=== PATIENT | female | born 1935 | race Caucasian/White ===

== ENCOUNTER 2017-09-26 13:26 | Inpatient (IN) | payer MEDICARE, BC ==
[2017-09-26] MEDS ORDERED: ACETAMINOPHEN TAB 500 MG TAB PO STA (13:53)
--- NOTE | 2017-09-26 13:57 | ED ---
General Adult HPI - General Chief complaint: Altered Mental Status Stated complaint: Disorientated Time Seen by Provider: 09/26/17 13:46 Source: patient, family, RN notes reviewed Mode of arrival: wheelchair Limitations: no limitations - History of Present Illness Initial comments: Patient is a pleasant 82-year-old female presenting to the emergency Department with altered mental status. Family noticed symptoms today. Patient feels confused. Patient does feel weak and fatigued. No known history of fever. No history of similar symptoms previously. No isolated area of weakness. - Related Data Home Medications Medication Instructions Recorded Confirmed Levothyroxine Sodium [Synthroid] 25 mcg PO DAILY 10/12/13 09/26/17 Allergies Allergy/AdvReac Type Severity Reaction Status Date / Time Penicillins Allergy Rash/Hives Verified 09/26/17 14:04 Review of Systems ROS Statement: Those systems with pertinent positive or pertinent negative responses have been documented in the HPI. ROS Other: All systems not noted in ROS Statement are negative. Constitutional: Denies: fever Eyes: Denies: eye pain ENT: Denies: ear pain Respiratory: Denies: cough, dyspnea Cardiovascular: Denies: chest pain Endocrine: Reports: fatigue Gastrointestinal: Denies: abdominal pain Genitourinary: Denies: dysuria Musculoskeletal: Denies: back pain Skin: Denies: rash Neurological: Reports: confusion Past Medical History Past Medical History: Hyperlipidemia, Hypertension, Thyroid Disorder History of Any Multi-Drug Resistant Organisms: None Reported Past Surgical History: Appendectomy Additional Past Surgical History / Comment(s): colonoscopy Past Anesthesia/Blood Transfusion Reactions: No Reported Reaction Past Psychological History: No Psychological Hx Reported Smoking Status: Current every day smoker Past Alcohol Use History: Rare Past Drug Use History: None Reported General Exam Limitations: no limitations General appearance: alert, in no apparent distress Head exam: Present: atraumatic Eye exam: Present: normal appearance, PERRL, EOMI. Absent: nystagmus ENT exam: Present: normal oropharynx Neck exam: Present: normal inspection. Absent: tenderness, meningismus Respiratory exam: Present: normal lung sounds bilaterally Cardiovascular Exam: Present: regular rate, normal rhythm GI/Abdominal exam: Present: soft. Absent: tenderness Extremities exam: Present: normal inspection Neurological exam: Present: alert, altered, CN II-XII intact. Absent: motor sensory deficit Expanded Neurological exam: Present: protecting the airway Patient oriented to: Present: person, place (Patient no she is in the hospital however unclear what city). Absent: time (Patient normally is able to state the year however cannot today) Cranial nerves: EOM's Intact: Normal Motor strength exam: RUE: 5, LUE: 5, RLE: 5, LLE: 5 Eye Response: (4) open spontaneously Motor Response: (6) obeys commands Verbal Response: (4) confused conversation Psychiatric exam: Present: normal affect, normal mood Skin exam: Present: normal color Course Vital Signs 09/26/17 09/26/17 09/26/17 13:32 14:01 15:47 Temperature 100.1 F H 99.4 F Pulse Rate 100 71 77 Respiratory 18 18 18 Rate Blood Pressure 150/88 158/102 167/86 O2 Sat by Pulse 99 94 L 98 Oximetry EKG Findings - EKG Comments: EKG Findings:: Normal sinus rhythm 79. NV 180. QRS 86. QT 392. QTC 449. Normal axis. Normal QRS. No acute ST change. Medical Decision Making - Medical Decision Making Patient reevaluated and resting comfortably in bed. Patient and family are updated on results and plan. Case was discussed in detail with Dr. Warren, who will admit for Dr. Donohue. IV antibiotics will be started. Patient does not meet sepsis criteria at this time. - Lab Data Result diagrams: 09/26/17 16:00 Lab Results 09/26/17 09/26/17 09/26/17 Range/Units 14:40 16:00 16:00 WBC 8.2 (3.8-10.6) k/uL RBC 4.71 (3.80-5.40) m/uL Hgb 14.6 (11.4-16.0) gm/dL Hct 44.1 (34.0-46.0) % MCV 93.6 (80.0-100.0) fL MCH 31.0 (25.0-35.0) pg MCHC 33.1 (31.0-37.0) g/dL RDW 13.1 (11.5-15.5) % Plt Count 261 (150-450) k/uL Neutrophils % 77 % Lymphocytes % 14 % Monocytes % 6 % Eosinophils % 1 % Basophils % 0 % Neutrophils # 6.4 (1.3-7.7) k/uL Lymphocytes # 1.2 (1.0-4.8) k/uL Monocytes # 0.5 (0-1.0) k/uL Eosinophils # 0.1 (0-0.7) k/uL Basophils # 0.0 (0-0.2) k/uL PT 9.7 (9.0-12.0) sec INR 1.0 (<1.2) APTT 24.6 (22.0-30.0) sec Plasma Lactic Acid Qasim (0.7-2.0) mmol/L Urine Color Light Yellow Urine Appearance Clear (Clear) Urine pH 7.5 (5.0-8.0) Ur Specific [place] 1.011 (1.001-1.035) Urine Protein Negative (Negative) Urine Glucose (UA) Negative (Negative) Urine Ketones 1+ H (Negative) Urine Blood Negative (Negative) Urine Nitrite Negative (Negative) Urine Bilirubin Negative (Negative) Urine Urobilinogen <2.0 (<2.0) mg/dL Ur Leukocyte Esterase Negative (Negative) 09/26/17 Range/Units 16:00 WBC (3.8-10.6) k/uL RBC (3.80-5.40) m/uL Hgb (11.4-16.0) gm/dL Hct (34.0-46.0) % MCV (80.0-100.0) fL MCH (25.0-35.0) pg MCHC (31.0-37.0) g/dL RDW (11.5-15.5) % Plt Count (150-450) k/uL Neutrophils % % Lymphocytes % % Monocytes % % Eosinophils % % Basophils % % Neutrophils # (1.3-7.7) k/uL Lymphocytes # (1.0-4.8) k/uL Monocytes # (0-1.0) k/uL Eosinophils # (0-0.7) k/uL Basophils # (0-0.2) k/uL PT (9.0-12.0) sec INR (<1.2) APTT (22.0-30.0) sec Plasma Lactic Acid Qasim 1.4 (0.7-2.0) mmol/L Urine Color Urine Appearance (Clear) Urine pH (5.0-8.0) Ur Specific [place] (1.001-1.035) Urine Protein (Negative) Urine Glucose (UA) (Negative) Urine Ketones (Negative) Urine Blood (Negative) Urine Nitrite (Negative) Urine Bilirubin (Negative) Urine Urobilinogen (<2.0) mg/dL Ur Leukocyte Esterase (Negative) - Radiology Data Radiology results: report reviewed (Computed tomography scan of the brain shows atrophy. Sinusitis.), image reviewed (X-ray shows right lower lobe infiltrate.) Disposition Clinical Impression: Pneumonia Disposition: ADMITTED IP TO THIS HOSP Is patient prescribed a controlled substance at d/c from ED?: No Referrals: Damaris Hutchinson MD [Primary Care Provider] - 1-2 days Decision Time: 16:39
[2017-09-26] MEDS ORDERED: SODIUM CHLORIDE 0.9% 500 ML IV SCH (14:00)
[2017-09-26 15:20] LABS: Appearance,Urine Clear (Clear); Bilirubin,Urine Negative (Negative); Blood,Urine Negative (Negative); Color,Urine Light Yellow; Glucose,Urine (UA) Negative (Negative); Ketones,Urine 1+ (Negative); Leukocyte Esterase,Urine Negative (Negative); Nitrite,Urine Negative (Negative); PH, Urine 7.5 (5.0-8.0); Protein,Urine Negative (Negative); Specific Gravity,Urine 1.011 (1.001-1.035); Urobilinogen,Urine <2.0 mg/dL (<2.0)
--- NOTE | 2017-09-26 15:22 | CT ---
EXAMINATION TYPE: CT brain wo con DATE OF EXAM: 09/26/2017 COMPARISON: 05/20/2014 INDICATION: ams DLP: 1047.1 mGycm, Automated exposure control for dose reduction was used. CONTRAST: None CT of the brain is performed utilizing 3 mm thick sections through the posterior fossa and 3 mm thick sections through the remaining calvarium. Study is performed within 24 hours of arrival to the hosp ital. No abnormal hyperdensity is present to suggest an acute intracranial hemorrhage. No mass lesion is evident. No acute infarcts are evident. There is confluent periventricular white matter hypodensity, likely on the basis of chronic ischemic changes. Ventricles and sulci are prominent for the patient age. There is an air-fluid level within the right maxillary sinus. Correlate for acute maxillary sinusitis . Mucosal thickenings within the left sphenoid and ethmoid air cells. Correlate for sinusitis. Some m inimal mucosal thickening is within the right frontal sinus. Mastoid air cells are clear. IMPRESSIONS: 1. Atrophy with chronic periventricular white matter ischemic changes. 2. Clinical correlation recommended for pansinusitis.
--- NOTE | 2017-09-26 15:47 | XR ---
EXAMINATION TYPE: XR chest 2V DATE OF EXAM: 09/26/2017 COMPARISON: 05/20/2014 INDICATION: Fever TECHNIQUE: Frontal and lateral views of the chest are obtained. FINDINGS: The heart size is normal. The pulmonary vasculature is normal. Some mild increased infiltrate is present at the right lower lobe. IMPRESSION: 1. Mild right lower lobe infiltrate. Early pneumonia could be considered.
[2017-09-26 16:11] LABS: Basophils % (A) 0 %; Eosinophils # (A) 0.1 k/uL (0-0.7); Eosinophils % (A) 1 %; HCT 44.1 % (34.0-46.0); HGB 14.6 gm/dL (11.4-16.0); Lymphocytes # (A) 1.2 k/uL (1.0-4.8); Lymphocytes % (A) 14 %; MCHC 33.1 g/dL (31.0-37.0); MCV 93.6 fL (80.0-100.0); Mean Platelet Volume 7.3; Monocytes # (A) 0.5 k/uL (0-1.0); Monocytes % (A) 6 %; Neutrophils # (A) 6.4 k/uL (1.3-7.7); Neutrophils % (A) 77 %; Platelet Count 261 k/uL (150-450); RBC 4.71 m/uL (3.80-5.40); RDW 13.1 % (11.5-15.5); WBC 8.2 k/uL (3.8-10.6)
[2017-09-26 16:20] LABS: Partial Thromboplastin Time 24.6 sec (22.0-30.0); Prothrombin Time 9.7 sec (9.0-12.0)
[2017-09-26 16:35] LABS: ALT 23 U/L (9-52); AST 32 U/L (14-36); Albumin 4.3 g/dL (3.5-5.0); Alkaline Phosphatase 81 U/L (38-126); Anion Gap 14 mmol/L; Blood Urea Nitrogen 13 mg/dL (7-17); Calcium 9.3 mg/dL (8.4-10.2); Carbon Dioxide 22 mmol/L (22-30); Chloride 104 mmol/L (98-107); Glucose 94 mg/dL (74-99); Potassium 4.7 mmol/L (3.5-5.1); Sodium 140 mmol/L (137-145); Total Bilirubin 0.9 mg/dL (0.2-1.3); Total Protein 7.1 g/dL (6.3-8.2)
[2017-09-26] MEDS ORDERED: PNEUMONIA PROTOCOL UTILIZED 1 EACH MISC PO PRN (16:39)
[2017-09-26] MEDS ORDERED: IPRATROPIUM-ALBUTEROL 3 ML NEB INHALATION PRN (16:39)
[2017-09-26 16:44] LABS: Creatine Kinase MB 0.4 ng/mL (0.0-2.4)
[2017-09-26] MEDS ORDERED: AZITHROMYCIN 500 MG in SODIUM CHLORIDE 0.9% 250 ML IVPB STA (16:45)
[2017-09-26] MEDS ORDERED: cefTRIAXone IN SWFI 1,000 MG/10 ML SYRINGE IVP STA (16:45)
[2017-09-26 16:58] LABS: Troponin I 0.017 ng/mL (0.000-0.034)
[2017-09-26 18:10] VITALS: BMI 21.9
[2017-09-27] MEDS: SODIUM CHLORIDE 0.9% 1,000 ML IV SCH ×2 (01:00→16:43)
--- NOTE | 2017-09-27 01:35 | P.HPIM ---
History of Present Illness H&P Date: 09/26/17 Chief Complaint: Altered mental status Patient is a 82-year-old female with known history of hypertension, hyperlipidemia, hypothyroidism and currently everyday smoker was brought to the hospital due to altered mental status, weakness and not feeling well and also not talking coherently. Family noticed that patient has been increasingly confused and was also felt cold and clammy and subjective fevers. He usually patient is alert and oriented 3. Patient does feel very weak and fatigued. No fever was noted patient does have home visiting nurse. No recent illnesses noted. No complaints of chest pain or shortness of breath. No focal weakness noted. No history of similar symptoms previously. Chest x-ray showed mild right lower lobe infiltrate CT head showed no acute abnormality. Atropine with chronic periventricular white matter ischemic changes noted. Pansinusitis suspected. UA negative Review of Systems Patient is currently confused and could not give any history at this time. Complete review of systems could not be apparent from the patient. Past Medical History Past Medical History: Hyperlipidemia, Hypertension, Thyroid Disorder Additional Past Medical History / Comment(s): per [facility] thyroid nodules, falls, compression fx to l1 and l3 in 2013 History of Any Multi-Drug Resistant Organisms: None Reported Past Surgical History: Appendectomy Additional Past Surgical History / Comment(s): colonoscopy Past Anesthesia/Blood Transfusion Reactions: No Reported Reaction Past Psychological History: No Psychological Hx Reported Smoking Status: Current every day smoker Past Alcohol Use History: None Reported Additional Past Alcohol Use History / Comment(s): started smoking at age 17 smokes 1ppd Past Drug Use History: None Reported - Past Family History Father Family Medical History: Unable to Obtain Mother Family Medical History: Unable to Obtain Medications and Allergies Home Medications Medication Instructions Recorded Confirmed Type Levothyroxine Sodium [Synthroid] 25 mcg PO DAILY 10/12/13 09/26/17 History Allergies Allergy/AdvReac Type Severity Reaction Status Date / Time Penicillins Allergy Rash/Hives Verified 09/26/17 14:04 Physical Exam Vitals: Vital Signs Temp Pulse Pulse Resp BP BP Pulse Ox 09/26/17 21:38 155/85 09/26/17 20:47 97.8 F 82 16 165/90 96 09/26/17 17:43 97.3 F L 86 17 186/98 96 09/26/17 17:41 73 18 140/80 93 L 09/26/17 16:40 98 06/05/18 15:47 99.4 F 77 18 167/86 98 09/26/17 14:01 71 18 158/102 94 L 09/26/17 13:32 100.1 F H 100 18 150/88 99 Intake and Output 09/26/17 09/26/17 09/26/17 06:59 14:59 22:59 Other: # Voids 1 Weight 63.503 kg 63.503 kg PHYSICAL EXAMINATION: Patient is lying in the bed comfortably, no acute distress, awake alert and oriented 1.. HEENT: Normocephalic. Neck is supple. Pupils reactive. Nostrils clear. Oral cavity is moist. Ears reveal no drainage. Neck reveals no JVD, carotid bruits, or thyromegaly. CHEST EXAMINATION: Trachea is central. Symmetrical expansion. Bibasilar diminished air entry. No wheezing noted. CARDIAC: Normal S1, S2 with no gallops. No murmurs ABDOMEN: Soft. Bowel sounds normal. No organomegaly. No abdominal bruits. Extremities: reveal no edema. No clubbing or cyanosis Neurologically awake, alert, oriented x1 with well-coordinated movements. Confused. No focal deficits noted Skin: No rash or skin lesions. Psychiatric: Cooperative. Could not be assessed completely Musculoskeletal: No joint swelling or deformity. Normal range of motion. Results CBC & Chem 7: 09/26/17 16:00 09/26/17 16:00 Labs: Abnormal Lab Results - Last 24 Hours (Table) 09/26/17 09/26/17 Range/Units 14:40 16:00 Creatinine 0.44 L (0.52-1.04) mg/dL Urine Ketones 1+ H (Negative) Microbiology - Last 24 Hours (Table) 09/26/17 14:40 Urine Culture - Preliminary Urine,Catheterized Thrombosis Risk Factor Assmnt - DVT/VTE Prophylaxis DVT/VTE Prophylaxis: Pharmacologic Prophylaxis ordered - Choose All That Apply Each Risk Factor Represents 3 Points: Age 75 years or older Thrombosis Risk Factor Assessment Total Risk Factor Score: 3 Thrombosis Risk Factor Assessment Level: Moderate Risk Assessment and Plan Assessment: Altered mental status possible metabolic encephalopathy secondary to infection Acute right lower lobe pneumonia Possible pansinusitis Hypertension Hyperlipidemia Hypothyroidism DVT prophylaxis Plan: Patient will be continued on gentle hydration and antibiotics in the form of ceftriaxone and azithromycin. Continue to monitor closely. Discussed with family at bedside in detail. Continue with home medications and further recommendations based on the clinical course. Time with Patient: Greater than 30
--- NOTE | 2017-09-27 05:48 | HP ---
HISTORY AND PHYSICAL CHIEF COMPLAINT: Chief complaints are change in mental status and confusion and pneumonia. HISTORY OF PRESENT ILLNESS: This 82-year-old woman with a past medical history of hypertension, hyperlipidemia, hypothyroidism, history of thyroid nodules, being followed by Dr. Hutchinson in the outpatient setting was brought by the family to [facility] with complaints of features of pneumonia, dehydration, confusion. Mild right lower lobe infiltrate was noted. The patient was started on IV antibiotics and was admitted for further evaluation and treatment. Currently the patient is confused and unable to give a current history, most of the history is my discussion with staff and review of the chart. PAST MEDICAL HISTORY: Hypertension, hyperlipidemia, hypothyroidism, history of . MEDICATIONS: Medications prior to admission include home medications are: Levothyroxine 25 mcg p.o. daily. ALLERGIES: Allergies are PENICILLIN. Family history, social history and review of systems could not be taken because of the patient's change in mental status. PHYSICAL EXAMINATION: Patient is alert, confused. Pulse 82, blood pressure 165/90, respirations 16, temperature is 97.8, pulse ox 96% on 2 L. HEENT: Conjunctivae normal. Oral mucosa dry. Neck is no jugular venous distention. No carotid bruit. No lymph node enlargement. CARDIOVASCULAR: S1 and S2 muffled, RESPIRATORY: Breath sounds diminished at the bases. A few scattered rhonchi, no crackles. ABDOMEN: Soft, nontender. No mass palpable. LEGS: No edema, no swelling. NERVOUS SYSTEM: Higher functions as mentioned earlier. Moves all 4 limbs. No focal deficits. LYMPHATICS: No lymphadenopathy of the neck, axillae or groin. SKIN: No ulcer, rash or bleeding. LABS: CBC within normal limits. Creatinine 0.44. UA noted. ASSESSMENT: 1. Acute right lower lobe pneumonia, possibly gram-negative. 2. Hypertension. 3. Hyperlipidemia. 4. Change in mental status, metabolic encephalopathy, acute on chronic. 5. Hypothyroidism. 6. History of compression fracture. 7. History of nicotine dependence. RECOMMENDATIONS AND DISCUSSION: This 82-year-old woman who presented with multiple complex medical issues, we will monitor the patient closely. Continue the current medications. Continue symptomatic treatment. Broad-spectrum IV antibiotics initiated. Otherwise I would also recommend resume the home medications and DVT prophylaxis. Proton pump inhibitors. Habitrol patch. Repeat labs. The prognosis extremely guarded because of multiple complex medical issues and further recommendations to follow. Continue to monitor. MMODL / IJN: [id number] /
[2017-09-27] MEDS: LEVOTHYROXINE 25 MCG TAB PO SCH (05:50)
[2017-09-27 07:51] LABS: Basophils % (A) 1 %; Eosinophils # (A) 0.2 k/uL (0-0.7); Eosinophils % (A) 3 %; HCT 41.1 % (34.0-46.0); HGB 13.3 gm/dL (11.4-16.0); Lymphocytes # (A) 1.6 k/uL (1.0-4.8); Lymphocytes % (A) 24 %; MCHC 32.5 g/dL (31.0-37.0); MCV 95.5 fL (80.0-100.0); Mean Platelet Volume 6.7; Monocytes # (A) 0.7 k/uL (0-1.0); Monocytes % (A) 11 %; Neutrophils # (A) 3.9 k/uL (1.3-7.7); Neutrophils % (A) 60 %; Platelet Count 271 k/uL (150-450); RDW 13.1 % (11.5-15.5); WBC 6.6 k/uL (3.8-10.6)
[2017-09-27] MEDS: cefTRIAXone IN SWFI 1,000 MG/10 ML SYRINGE IVP SCH (08:40)
[2017-09-27] MEDS: PANTOPRAZOLE 40 MG TABLET PO SCH (08:40)
[2017-09-27] MEDS: HEPARIN SODIUM,PORCINE 5,000 UNIT/ML 1 ML VIAL SQ SCH ×2 (08:41→22:15)
[2017-09-27] MEDS: NICOTINE 21MG/24HR PATCH TRANSDERM SCH (08:41)
--- NOTE | 2017-09-27 08:48 | XR ---
EXAMINATION TYPE: XR chest 2V DATE OF EXAM: 09/27/2017 COMPARISON: 09/26/2017 HISTORY: Follow-up for pneumonia. TECHNIQUE: Frontal and lateral views of the chest are obtained. FINDINGS: Interval improvement in the previously seen right infrahilar opacity now appears as vascul ature and linear atelectasis. Prominent epicardial fat pad is also noted. Hyperinflation relates unde rlying COPD. Calcific pleural parenchymal scarring is noted at the lung apices. Atherosclerosis of th e right axillary and to a lesser degree of the left axillary vasculature is present. Chronic fracture deformity of the distal left clavicle is seen in combination with diffuse osseous demineralization. IMPRESSION: Interval improvement in the right basilar airspace disease now linear thought to represe nt vasculature and residual atelectasis.
[2017-09-27 08:49] LABS: Anion Gap 13 mmol/L; Blood Urea Nitrogen 16 mg/dL (7-17); Calcium 8.8 mg/dL (8.4-10.2); Carbon Dioxide 25 mmol/L (22-30); Chloride 104 mmol/L (98-107); Glucose 87 mg/dL (74-99); Potassium 3.7 mmol/L (3.5-5.1); Sodium 142 mmol/L (137-145)
--- NOTE | 2017-09-27 11:20 | P.CNPUL ---
History of Present Illness Consult date: 09/27/17 Requesting physician: Yousif Warren Reason for consult: abnormal CXR/CT Chief complaint: Altered mental status History of present illness: This is a pleasant 82-year-old female patient who follows with Dr. Hutchinson as her primary care physician. She has a history of hyperlipidemia, hypertension, hypothyroidism. She has current and ongoing tobacco dependence. She was brought to the emergency room yesterday after her family had noticed her being more confused, weak and fatigued. Computed tomography scan of the brain revealed atrophy with chronic periventricular white matter ischemic changes. There is some partida sinusitis. Chest x-ray revealed a mild right lower lobe infiltrate, possible pneumonia. She did present with a temperature of 100.1. No hypoxemia. There is no leukocytosis. Urine cultures pending. The patient is seen today in consultation on the regular medical floor. She is currently awake and alert in no acute distress. She is confused to time and place. She believes she is in [place]. Re-orientates easily. She cannot remember why she is here in the hospital. She currently denies any shortness of breath, cough or congestion. No chills or night sweats. She has been initiated on bronchodilators, antibiotics in the form of ceftriaxone and azithromycin. Follow-up chest x-ray today reveals interval improvement in the right basilar airspace disease. Review of Systems ROS unobtainable: due to mental status Past Medical History Past Medical History: Hyperlipidemia, Hypertension, Thyroid Disorder Additional Past Medical History / Comment(s): per [facility] thyroid nodules, falls, compression fx to l1 and l3 in 2013 History of Any Multi-Drug Resistant Organisms: None Reported Past Surgical History: Appendectomy Additional Past Surgical History / Comment(s): colonoscopy Past Anesthesia/Blood Transfusion Reactions: No Reported Reaction Past Psychological History: No Psychological Hx Reported Smoking Status: Current every day smoker Past Alcohol Use History: None Reported Additional Past Alcohol Use History / Comment(s): started smoking at age 17 smokes 1ppd Past Drug Use History: None Reported - Past Family History Father Family Medical History: Unable to Obtain Mother Family Medical History: Unable to Obtain Medications and Allergies Home Medications Medication Instructions Recorded Confirmed Type Levothyroxine Sodium [Synthroid] 25 mcg PO DAILY 10/12/13 09/26/17 History Allergies Allergy/AdvReac Type Severity Reaction Status Date / Time Penicillins Allergy Rash/Hives Verified 09/26/17 14:04 Physical Exam Vitals: Vital Signs Temp Pulse Pulse Resp BP BP Pulse Ox 09/27/17 05:13 97.6 F 65 16 153/78 97 09/26/17 21:38 155/85 09/26/17 20:47 97.8 F 82 16 165/90 96 09/26/17 17:43 97.3 F L 86 17 186/98 96 09/26/17 17:41 73 18 140/80 93 L 09/26/17 16:40 98 09/26/17 15:47 99.4 F 77 18 167/86 98 09/26/17 14:01 71 18 158/102 94 L 09/26/17 13:32 100.1 F H 100 18 150/88 99 Intake and Output 09/26/17 09/27/17 09/27/17 22:59 06:59 14:59 Other: Voiding Method Toilet Toilet # Voids 1 2 Weight 63.503 kg GENERAL EXAM: Alert, active, comfortable in no apparent distress. HEAD: Normocephalic. EYES: Normal reaction of pupils, equal size. NOSE: Clear with pink turbinates. THROAT: No erythema or exudates. NECK: No masses, no JVD. CHEST: No chest wall deformity. LUNGS: Equal air entry with no crackles, wheeze, rhonchi or dullness. CVS: S1 and S2 normal with no audible murmur, regular rhythm. ABDOMEN: No hepatosplenomegaly, normal bowel sounds, no guarding or rigidity. SPINE: No scoliosis or deformity SKIN: No rashes CENTRAL NERVOUS SYSTEM: No focal deficits, tone is normal in all 4 extremities. EXTREMITIES: There is no peripheral edema. No clubbing, no cyanosis. Peripheral pulses are intact. Results - Laboratory Findings CBC and BMP: 09/27/17 07:33 09/27/17 07:33 PT/INR, D-dimer PT 9.7 sec (9.0-12.0) 09/26/17 16:00 INR 1.0 (<1.2) 09/26/17 16:00 Abnormal lab findings: Abnormal Labs 09/26/17 09/26/17 14:40 16:00 Creatinine 0.44 L Urine Ketones 1+ H - Diagnostic Findings Chest x-ray: image reviewed Assessment and Plan Assessment: Impression: #1 Altered mental status of unclear etiology suspect minimal right perihilar infiltrate/pneumonia, however chest x-ray improved within 24 hours. Urine culture pending. #2 Hypertension. #3 Hyperlipidemia. #4 Hypothyroidism. #5 Chronic and ongoing tobacco dependence. Plan: The patient was seen and evaluated by Dr. Ortiz. Chest x-ray and labs were reviewed. Doubt any significant pneumonia but will continue bronchodilators and antibiotics. NicoDerm patch has been applied. Educated regarding the importance of complete smoking cessation. Heparin for DVT prophylaxis. Protonix for GI prophylaxis. Increase her activity as tolerated. We'll continue to follow. I, the cosigning physician, performed a history & physical examination of the patient. Lungs sounds are clear. Maintaining good O2 saturations in the 90s on room air. I discussed the assessment and plan of care with my nurse practitioner, Stefani Arcos. I attest to the above note as dictated by her. Time with Patient: Greater than 30
[2017-09-27] MEDS: AZITHROMYCIN 500 MG TAB PO SCH (16:43)
--- NOTE | 2017-09-27 23:50 | P.PN ---
Subjective Progress Note Date: 09/27/17 Principal diagnosis: Altered mental status and pneumonia Patient is a 82-year-old female with known history of hypertension, hyperlipidemia, hypothyroidism and currently everyday smoker was brought to the hospital due to altered mental status, weakness and not feeling well and also not talking coherently. Family noticed that patient has been increasingly confused and was also felt cold and clammy and subjective fevers. He usually patient is alert and oriented 3. Patient does feel very weak and fatigued. No fever was noted patient does have home visiting nurse. No recent illnesses noted. No complaints of chest pain or shortness of breath. No focal weakness noted. No history of similar symptoms previously. Chest x-ray showed mild right lower lobe infiltrate CT head showed no acute abnormality. Atropine with chronic periventricular white matter ischemic changes noted. Pansinusitis suspected. UA negative 09/27/2017 Patient's mental status did improve daily. Patient is able to communicate. Caregiver and her at bedside. Patient's mental status is at baseline. Otherwise patient is being continued on antibiotics for possible pneumonia. Chest x-ray showed improvement in 24 hours. Pulmonary is following. Urine culture showed no growth. Blood cultures showed no growth so far. Patient denied any complaints of chest pain or worsening shortness of breath. No nausea vomiting or abdominal pain. Patient was counseled extensively for smoking cessation. Otherwise no acute overnight issues. All other review of systems negative except the above Current medications reviewed Objective - Vital Signs Vital signs: Vital Signs Temp 98.0 F 09/27/17 14:57 Pulse 70 09/27/17 14:57 Resp 16 09/27/17 14:57 BP 157/70 09/27/17 14:57 Pulse Ox 96 09/27/17 14:57 Intake & Output 09/27/17 09/27/17 09/28/17 06:59 18:59 06:59 Intake Total 600 600 Balance 600 600 Intake: Oral 600 600 Other: Voiding Method Toilet Toilet # Voids 2 4 - Exam PHYSICAL EXAMINATION: Patient is lying in the bed comfortably, no acute distress, awake alert and oriented but slow to communicate.. HEENT: Normocephalic. Neck is supple. Pupils reactive. Nostrils clear. Oral cavity is moist. Ears reveal no drainage. Neck reveals no JVD, carotid bruits, or thyromegaly. CHEST EXAMINATION: Trachea is central. Symmetrical expansion. Bibasilar diminished air entry and no wheezing noted. CARDIAC: Normal S1, S2 with no gallops. No murmurs ABDOMEN: Soft. Bowel sounds normal. No organomegaly. No abdominal bruits. Extremities: reveal no edema. No clubbing or cyanosis Neurologically awake, alert, oriented x3 with well-coordinated movements. No focal deficits noted Skin: No rash or skin lesions. Psychiatric: Cooperative. Nonsuicidal Musculoskeletal: No joint swelling or deformity. Normal range of motion. - Labs CBC & Chem 7: 09/27/17 07:33 09/27/17 07:33 Labs: Microbiology - Last 24 Hours (Table) 09/26/17 14:40 Urine Culture - Final Urine,Catheterized 09/26/17 16:00 Blood Culture - Preliminary Blood No Growth after 24 hours 09/26/17 14:40 Blood Culture - Preliminary Blood No Growth after 24 hours Assessment and Plan Assessment: Altered mental status possible metabolic encephalopathy secondary to infection. Mental status improved. Intermittent Acute right lower lobe pneumonia Possible pansinusitis Hypertension Hyperlipidemia Hypothyroidism DVT prophylaxis Plan: Patient will be continued on gentle hydration and antibiotics in the form of ceftriaxone and azithromycin. Continue to monitor closely. Discussed with family at bedside in detail. Continue with home medications and further recommendations based on the clinical course. Time with Patient: Greater than 30
[2017-09-28] MEDS: LEVOTHYROXINE 25 MCG TAB PO SCH (06:21)
[2017-09-28] MEDS: NICOTINE 21MG/24HR PATCH TRANSDERM SCH (07:31)
[2017-09-28] MEDS: PANTOPRAZOLE 40 MG TABLET PO SCH (07:31)
[2017-09-28] MEDS: HEPARIN SODIUM,PORCINE 5,000 UNIT/ML 1 ML VIAL SQ SCH ×2 (07:31→20:44)
[2017-09-28] MEDS: cefTRIAXone IN SWFI 1,000 MG/10 ML SYRINGE IVP SCH (07:32)
[2017-09-28 07:57] LABS: Basophils % (A) 0 %; Eosinophils # (A) 0.2 k/uL (0-0.7); Eosinophils % (A) 4 %; HCT 40.9 % (34.0-46.0); HGB 13.3 gm/dL (11.4-16.0); Lymphocytes # (A) 1.3 k/uL (1.0-4.8); Lymphocytes % (A) 26 %; MCH 30.7 pg (25.0-35.0); MCHC 32.4 g/dL (31.0-37.0); MCV 94.6 fL (80.0-100.0); Mean Platelet Volume 6.8; Monocytes # (A) 0.4 k/uL (0-1.0); Monocytes % (A) 9 %; Neutrophils # (A) 2.9 k/uL (1.3-7.7); Neutrophils % (A) 59 %; Platelet Count 268 k/uL (150-450); RBC 4.32 m/uL (3.80-5.40); RDW 13.2 % (11.5-15.5)
[2017-09-28 08:14] LABS: Anion Gap 10 mmol/L; Blood Urea Nitrogen 14 mg/dL (7-17); Calcium 8.5 mg/dL (8.4-10.2); Carbon Dioxide 28 mmol/L (22-30); Chloride 104 mmol/L (98-107); Glucose 90 mg/dL (74-99); Potassium 3.7 mmol/L (3.5-5.1); Sodium 142 mmol/L (137-145)
[2017-09-28] MEDS: SODIUM CHLORIDE 0.9% 1,000 ML IV SCH (11:54)
--- NOTE | 2017-09-28 14:41 | P.PN ---
Subjective Progress Note Date: 09/28/17 Principal diagnosis: Altered mental status, suspect minimal right perihilar infiltrate/pneumonia This is a pleasant 82-year-old female patient who follows with Dr. Hutchinson as her primary care physician. She has a history of hyperlipidemia, hypertension, hypothyroidism. She has current and ongoing tobacco dependence. She was brought to the emergency room yesterday after her family had noticed her being more confused, weak and fatigued. Computed tomography scan of the brain revealed atrophy with chronic periventricular white matter ischemic changes. There is some partida sinusitis. Chest x-ray revealed a mild right lower lobe infiltrate, possible pneumonia. She did present with a temperature of 100.1. No hypoxemia. There is no leukocytosis. Urine cultures pending. The patient is seen today in consultation on the regular medical floor. She is currently awake and alert in no acute distress. She is confused to time and place. She believes she is in [place]. Re-orientates easily. She cannot remember why she is here in the hospital. She currently denies any shortness of breath, cough or congestion. No chills or night sweats. She has been initiated on bronchodilators, antibiotics in the form of ceftriaxone and azithromycin. Follow-up chest x-ray today reveals interval improvement in the right basilar airspace disease. On 09/28/2017 patient seen again in follow-up on medical surgical floor. She is resting in bed, denies any acute distress, denies any fever or chills, or cough is weak, but none congested, lung sounds are positive for a few bibasilar rales. Pulse ox on 2 L per nasal cannula is 94%, she has been afebrile, vital signs are stable. Patient has not been able to produce any sputum for culture. Blood and urine culture show no growth. Patient remains on empiric antibiotics in the form of azithromycin and Rocephin were a suspected right lower lobe pneumonia. Patient is alert, oriented to person, and the month. Disoriented to year, or the place. Lab work has been reviewed, and there is no evidence of leukocytosis, WBCs 5.0, electrolytes are normal, renal profile is essentially normal. No complaints of chest pain or shortness of breath, no focal weakness. No acute events overnight. From pulmonary standpoint patient is stable for discharge home today. Objective - Vital Signs Vital signs: Vital Signs Temp 97.6 F 09/28/17 05:00 Pulse 70 09/28/17 05:00 Resp 16 09/28/17 05:00 BP 176/85 09/28/17 05:00 Pulse Ox 94 L 09/28/17 06:58 Intake & Output 09/27/17 09/28/17 09/28/17 18:59 06:59 18:59 Intake Total 600 1810 Balance 600 1810 Intake: Intake, IV Titration 350 Amount Sodium Chloride 0.9% 1, 350 000 ml @ 50 mls/hr IV . Q20H [facility] Rx#:[id number] Oral 600 1460 Other: Voiding Method Toilet Toilet Toilet Diaper Incontinent # Voids 4 1 - Exam GENERAL EXAM: Alert, active, comfortable in no apparent distress. HEAD: Normocephalic. EYES: Normal reaction of pupils, equal size. NOSE: Clear with pink turbinates. THROAT: No erythema or exudates. NECK: No masses, no JVD. CHEST: No chest wall deformity. LUNGS: Equal air entry with a few bibasilar crackles, but no wheeze, rhonchi or dullness. CVS: S1 and S2 normal with no audible murmur, regular rhythm. ABDOMEN: No hepatosplenomegaly, normal bowel sounds, no guarding or rigidity. SPINE: No scoliosis or deformity SKIN: No rashes CENTRAL NERVOUS SYSTEM: No focal deficits, tone is normal in all 4 extremities. EXTREMITIES: There is no peripheral edema. No clubbing, no cyanosis. Peripheral pulses are intact. - Labs CBC & Chem 7: 09/28/17 07:24 09/28/17 07:24 Labs: Abnormal Lab Results - Last 24 Hours (Table) 09/28/17 Range/Units 07:24 Creatinine 0.49 L (0.52-1.04) mg/dL Microbiology - Last 24 Hours (Table) 09/26/17 14:40 Urine Culture - Final Urine,Catheterized 09/26/17 16:00 Blood Culture - Preliminary Blood No Growth after 24 hours 09/26/17 14:40 Blood Culture - Preliminary Blood No Growth after 24 hours Assessment and Plan Plan: Assessment: #1 Altered mental status of unclear etiology suspect minimal right perihilar infiltrate/pneumonia, however chest x-ray improved within 24 hours. General blood cultures negative #2 Hypertension. #3 Hyperlipidemia. #4 Hypothyroidism. #5 Chronic and ongoing tobacco dependence. Plan: Clinically patient remains stable, denies any worsening dyspnea, denies any fever or chills, denies any chest discomfort. She is on room air, there is no leukocytosis. Menta status is improved, but patient remains disoriented to place and year. She is tolerating oral diet, no nausea vomiting, no abdominal pain. She has been afebrile, vital signs are stable. Doubt significant pneumonia, and clinically patient is stable, without specific complaints. From pulmonary standpoint she stable for discharge home today on an oral course of antibiotics. I performed a history & physical examination of the patient and discussed their management with my nurse practitioner, Echo Butterfield. I reviewed the nurse practitioner's note and agree with the documented findings and plan of care. Lung sounds are diminished with a few bibasilar crackles. The findings and the impression was discussed with the patient. I attest to the documentation by the nurse practitioner. Time with Patient: Less than 30
[2017-09-28] MEDS: AZITHROMYCIN 500 MG TAB PO SCH (17:07)
[2017-09-28 23:14] VITALS: RESP 16; TEMP 97.4
[2017-09-29] MEDS: LEVOTHYROXINE 25 MCG TAB PO SCH (06:10)
[2017-09-29 07:00] VITALS: BP 171/93; PULSE 68
[2017-09-29 07:06] LABS: Basophils % (A) 1 %; Eosinophils # (A) 0.2 k/uL (0-0.7); Eosinophils % (A) 3 %; HCT 39.4 % (34.0-46.0); HGB 13.1 gm/dL (11.4-16.0); Lymphocytes # (A) 1.6 k/uL (1.0-4.8); Lymphocytes % (A) 29 %; MCH 31.2 pg (25.0-35.0); MCHC 33.3 g/dL (31.0-37.0); MCV 93.8 fL (80.0-100.0); Mean Platelet Volume 6.9; Monocytes # (A) 0.5 k/uL (0-1.0); Monocytes % (A) 9 %; Neutrophils % (A) 56 %; Platelet Count 275 k/uL (150-450); RDW 13.1 % (11.5-15.5); WBC 5.3 k/uL (3.8-10.6)
[2017-09-29] MEDS: SODIUM CHLORIDE 0.9% 1,000 ML IV SCH (07:15)
[2017-09-29] MEDS: cefTRIAXone IN SWFI 1,000 MG/10 ML SYRINGE IVP SCH (07:15)
[2017-09-29] MEDS: HEPARIN SODIUM,PORCINE 5,000 UNIT/ML 1 ML VIAL SQ SCH (07:16)
[2017-09-29] MEDS: PANTOPRAZOLE 40 MG TABLET PO SCH (07:16)
[2017-09-29] MEDS: NICOTINE 21MG/24HR PATCH TRANSDERM SCH (07:16)
[2017-09-29 07:21] LABS: Anion Gap 10 mmol/L; Blood Urea Nitrogen 12 mg/dL (7-17); Calcium 8.6 mg/dL (8.4-10.2); Carbon Dioxide 27 mmol/L (22-30); Chloride 104 mmol/L (98-107); Glucose 93 mg/dL (74-99); Potassium 3.4 mmol/L (3.5-5.1); Sodium 141 mmol/L (137-145)
--- NOTE | 2017-09-29 11:26 | P.PN ---
Subjective Progress Note Date: 09/29/17 Principal diagnosis: Altered mental status, suspect minimal right perihilar infiltrate/pneumonia This is a pleasant 82-year-old female patient who follows with Dr. Hutchinson as her primary care physician. She has a history of hyperlipidemia, hypertension, hypothyroidism. She has current and ongoing tobacco dependence. She was brought to the emergency room yesterday after her family had noticed her being more confused, weak and fatigued. Computed tomography scan of the brain revealed atrophy with chronic periventricular white matter ischemic changes. There is some partida sinusitis. Chest x-ray revealed a mild right lower lobe infiltrate, possible pneumonia. She did present with a temperature of 100.1. No hypoxemia. There is no leukocytosis. Urine cultures pending. The patient is seen today in consultation on the regular medical floor. She is currently awake and alert in no acute distress. She is confused to time and place. She believes she is in [place]. Re-orientates easily. She cannot remember why she is here in the hospital. She currently denies any shortness of breath, cough or congestion. No chills or night sweats. She has been initiated on bronchodilators, antibiotics in the form of ceftriaxone and azithromycin. Follow-up chest x-ray today reveals interval improvement in the right basilar airspace disease. On 09/28/2017 patient seen again in follow-up on medical surgical floor. She is resting in bed, denies any acute distress, denies any fever or chills, or cough is weak, but none congested, lung sounds are positive for a few bibasilar rales. Pulse ox on 2 L per nasal cannula is 94%, she has been afebrile, vital signs are stable. Patient has not been able to produce any sputum for culture. Blood and urine culture show no growth. Patient remains on empiric antibiotics in the form of azithromycin and Rocephin were a suspected right lower lobe pneumonia. Patient is alert, oriented to person, and the month. Disoriented to year, or the place. Lab work has been reviewed, and there is no evidence of leukocytosis, WBCs 5.0, electrolytes are normal, renal profile is essentially normal. No complaints of chest pain or shortness of breath, no focal weakness. No acute events overnight. From pulmonary standpoint patient is stable for discharge home today. On 09/29/2017 patient seen in follow-up. Denies any dyspnea, denies any chest pain, no acute events overnight, vital signs are stable, no fever or chills, room air pulse ox is 95%, blood, and urine cultures remain negative. Lung sounds are clear to auscultation, patient's mentation is improving, today's labs were reviewed, and are within normal limits, with the exception of potassium of 3.4. Patient has been treated with a combination of azithromycin and Rocephin for a suspected right lower lobe pneumonia. Clinically patient remains stable, and from pulmonary standpoint is ready for discharge home today Objective - Vital Signs Vital signs: Vital Signs Temp 97.4 F L 09/29/17 06:59 Pulse 68 09/29/17 06:59 Resp 16 09/29/17 06:59 BP 171/93 09/29/17 06:59 Pulse Ox 95 09/29/17 06:59 Intake & Output 09/28/17 09/29/17 09/29/17 18:59 06:59 18:59 Intake Total 1390 Balance 1390 Weight 63.503 kg Intake: Intake, IV Titration 500 Amount Sodium Chloride 0.9% 1, 500 000 ml @ 50 mls/hr IV . Q20H [facility] Rx#:[id number] Oral 890 Other: Voiding Method Toilet Toilet Diaper Incontinent Incontinent # Voids 1 2 2 # Bowel Movements 1 1 - Exam GENERAL EXAM: Alert, active, comfortable in no apparent distress. HEAD: Normocephalic. EYES: Normal reaction of pupils, equal size. NOSE: Clear with pink turbinates. THROAT: No erythema or exudates. NECK: No masses, no JVD. CHEST: No chest wall deformity. LUNGS: Equal air entry bilaterally, no crackles, no rhonchi no wheezes CVS: S1 and S2 normal with no audible murmur, regular rhythm. ABDOMEN: No hepatosplenomegaly, normal bowel sounds, no guarding or rigidity. SPINE: No scoliosis or deformity SKIN: No rashes CENTRAL NERVOUS SYSTEM: No focal deficits, tone is normal in all 4 extremities. EXTREMITIES: There is no peripheral edema. No clubbing, no cyanosis. Peripheral pulses are intact. - Labs CBC & Chem 7: 09/29/17 06:55 09/29/17 06:55 Labs: Abnormal Lab Results - Last 24 Hours (Table) 09/29/17 Range/Units 06:55 Potassium 3.4 L (3.5-5.1) mmol/L Creatinine 0.50 L (0.52-1.04) mg/dL Microbiology - Last 24 Hours (Table) 09/26/17 16:00 Blood Culture - Preliminary Blood No Growth after 48 hours 09/26/17 14:40 Blood Culture - Preliminary Blood No Growth after 48 hours Assessment and Plan Plan: Assessment: #1 Altered mental status of unclear etiology suspect minimal right perihilar infiltrate/pneumonia, however chest x-ray improved within 24 hours. General blood cultures negative #2 Hypertension. #3 Hyperlipidemia. #4 Hypothyroidism. #5 Chronic and ongoing tobacco dependence. Plan: Patient remains stable from pulmonary standpoint, mentation is improving, patient is awake, alert, oriented 3. No acute events overnight, no focal weakness, no dyspnea, no chest pain, no chest congestion. Stable for discharge home today, follow up with Dr. Gomes in the office in 7-10 days. I performed a history & physical examination of the patient and discussed their management with my nurse practitioner, Echo Butterfield. I reviewed the nurse practitioner's note and agree with the documented findings and plan of care. Lung sounds are diminished with a few bibasilar crackles. The findings and the impression was discussed with the patient. I attest to the documentation by the nurse practitioner. Time with Patient: Less than 30
[2017-09-29] MEDS: POTASSIUM CHLORIDE ER 20 MEQ TAB.ER PO SCH ×2 (12:11→13:24)
== END 2017-09-29 13:50 | disposition home health service (06) | DRG 193 ==
LOC: EC 13:26 → 5MS5E 16:40
PROVIDERS: ADMIT Internal Medicine; ATTEND Internal Medicine
DX: J18.9 Pneumonia, unspecified organism (principal); G93.41 Metabolic encephalopathy; E78.5 Hyperlipidemia, unspecified; J32.4 Chronic pansinusitis; I10 Essential (primary) hypertension; E03.9 Hypothyroidism, unspecified; E04.2 Nontoxic multinodular goiter; F17.210 Nicotine dependence, cigarettes, uncomplicated; Z71.6 Tobacco abuse counseling; Z79.890 Hormone replacement therapy; Z87.311 Personal history of (healed) other pathological fracture; Z90.49 Acquired absence of other specified parts of digestive tract
CPT/HCPCS: 36415; 70450; 71046; 80048; 80053; 81003; 82550; 82553; 83605; 84443; 84484; 85025; 85610; 85730; 87040; 87086; 93005; 94760; 96361; 96365; 96375; 99285

== ENCOUNTER 2017-11-17 20:41 | Emergency (ER) | payer MEDICARE, BC ==
[2017-11-17 21:21] VITALS: RESP 20
[2017-11-17] MEDS ORDERED: DIPH,PERTUS(ACELL)TETVAC-LF 0.5 ML VIAL IM ONE (22:28)
--- NOTE | 2017-11-17 22:56 | ED ---
Fall HPI - General Chief Complaint: Fall Stated Complaint: Fall Time Seen by Provider: 11/17/17 21:26 Source: patient Mode of arrival: ambulatory - History of Present Illness Initial Comments: 82-year-old female patient presents to emergency department today for evaluation after expressing a fall at home. Patient states that she was in the bathroom when she tripped and fell. Patient states that she sustained wounds to her right anterior ackerman and her left elbow. Patient is complaining of some pain with movement of the elbow. She denies hitting her head or losing consciousness during the fall. She denies any headache, neck pain, or back pain. Patient states she generally walks with a walker but does not fit into the bathroom so she believes this may have contributed to her fall. She is unsure when her last tetanus vaccine was given. Patient denies any chest pain, shortness of breath, dizziness, weakness, abdominal pain, nausea, vomiting, or difficulties with bowel movements or urination. - Related Data Home Medications Medication Instructions Recorded Confirmed Levothyroxine Sodium [Synthroid] 25 mcg PO DAILY 10/12/13 11/17/17 Allergies Allergy/AdvReac Type Severity Reaction Status Date / Time Penicillins Allergy Rash/Hives Verified 11/17/17 21:31 Review of Systems ROS Statement: Those systems with pertinent positive or pertinent negative responses have been documented in the HPI. ROS Other: All systems not noted in ROS Statement are negative. Past Medical History Past Medical History: Hyperlipidemia, Hypertension, Thyroid Disorder Additional Past Medical History / Comment(s): per [facility] thyroid nodules, falls, compression fx to l1 and l3 in 2013 History of Any Multi-Drug Resistant Organisms: None Reported Past Surgical History: Appendectomy Additional Past Surgical History / Comment(s): colonoscopy Past Anesthesia/Blood Transfusion Reactions: No Reported Reaction Past Psychological History: No Psychological Hx Reported Smoking Status: Current every day smoker Past Alcohol Use History: None Reported Past Drug Use History: None Reported - Past Family History Father Family Medical History: Unable to Obtain Mother Family Medical History: Unable to Obtain General Exam Limitations: no limitations General appearance: alert, in no apparent distress, other (This is a well- developed, well-nourished elderly female patient in no acute distress. Vital signs upon presentation are temperature 98.1F, pulse 61, respirations 20, blood pressure 155/90, pulse ox 98% on room air.) Head exam: Present: atraumatic, normocephalic, normal inspection Eye exam: Present: normal appearance, PERRL, EOMI. Absent: scleral icterus, conjunctival injection, periorbital swelling ENT exam: Present: normal exam, normal oropharynx, mucous membranes moist Neck exam: Present: normal inspection, full ROM, other (Nontender, no step-off, no deformity to firm midline palpation of the posterior cervical spine. Full range of motion without pain or limitation.). Absent: tenderness, meningismus, lymphadenopathy Respiratory exam: Present: normal lung sounds bilaterally. Absent: respiratory distress, wheezes, rales, rhonchi, stridor Cardiovascular Exam: Present: regular rate, normal rhythm, normal heart sounds. Absent: systolic murmur, diastolic murmur, rubs, gallop, clicks GI/Abdominal exam: Present: soft, normal bowel sounds. Absent: distended, tenderness, guarding, rebound, rigid Extremities exam: Present: full ROM, normal capillary refill, other (Patient has a 2 cm x 2 cm skin tear to the left posterior elbow. The patient has full range of motion however does report tenderness over the bony aspects of the elbow, reports increased pain with movement. Skin to the left upper extremities pink, warm, and dry. Cap refills less than 3 seconds. Radial pulses 2+ and equal bilaterally. Right leg exhibits a large skin tear to the right anterior ackerman. There is no bony tenderness. Patient is able to bear weight on the leg without significant pain. She has full range of motion to the knee without pain or limitation. Skin to the remainder of the right leg is pink, warm, and dry. Cap refills less than 3 seconds. Pedal and posttibial pulses are 2+ and equal bilaterally.). Absent: normal inspection, tenderness, pedal edema, joint swelling, calf tenderness Back exam: Present: normal inspection, other (Nontender, no step-off, no deformity to firm midline palpation of the thoracic and lumbar vertebrae. Full range of motion without pain or limitation.). Absent: vertebral tenderness Neurological exam: Present: alert, oriented X3, CN II-XII intact Psychiatric exam: Present: normal affect, normal mood Skin exam: Present: warm, dry, intact, normal color. Absent: rash Course Vital Signs 11/17/17 11/18/17 21:14 00:19 Temperature 98.1 F 98.0 F Pulse Rate 61 65 Respiratory 20 20 Rate Blood Pressure 155/90 148/91 O2 Sat by Pulse 98 97 Oximetry Medical Decision Making - Medical Decision Making 82-year-old female patient percents to the emergency department today for evaluation after experiencing a fall at home. Physical examination did reveal large skin tear to the right anterior ackerman and a small skin tear to the left elbow. Patient did have some left elbow pain with movement. X-ray of the elbow was negative. Tetanus was updated. Patient denied hitting her head or losing consciousness. She is neurologically intact. She'll be discharged home to follow-up with her primary care physician for recheck. Return parameters discussed in detail. She verbalizes understanding and agrees with this plan. - Radiology Data Radiology results: report reviewed, image reviewed 3 views of the left elbow are obtained. I see no fracture or dislocation. Joint spaces are normal. There is no sign of elbow joint effusion. Impression by Dr. Roa shows negative left elbow exam Disposition Clinical Impression: Skin tear of right lower leg without complication, Skin tear of left elbow without complication Disposition: HOME SELF-CARE Condition: Good Instructions: Fall Prevention for Older Adults (ED), Skin Tear (ED) Additional Instructions: Keep wounds clean and dry. Follow-up with the primary care physician for recheck in 1-2 days. Return here immediately for any new, worsening, or concerning symptoms. Is patient prescribed a controlled substance at d/c from ED?: No Referrals: Bridget Cruz MD [Primary Care Provider] - 1-2 days Time of Disposition: 23:58
--- NOTE | 2017-11-17 23:55 | XR ---
EXAMINATION TYPE: XR elbow complete LT DATE OF EXAM: 11/17/2017 COMPARISON: NONE HISTORY: Elbow pain TECHNIQUE: 3 views FINDINGS: I see no fracture nor dislocation. Joint spaces are normal. There is no sign of elbow joint effusion. IMPRESSION: Negative left elbow exam.
[2017-11-18 00:20] VITALS: BP 148/91; PULSE 65; TEMP 98
== END 2017-11-18 00:20 | disposition home or self-care (01) ==
LOC: EC 20:41
DX: S81.811A Laceration without foreign body, right lower leg, initial encounter (principal); S51.012A Laceration without foreign body of left elbow, initial encounter; E07.9 Disorder of thyroid, unspecified; F17.200 Nicotine dependence, unspecified, uncomplicated; Z23 Encounter for immunization; Z79.899 Other long term (current) drug therapy; Z88.0 Allergy status to penicillin; W01.0XXA Fall on same level from slipping, tripping and stumbling without subsequent striking against object, initial encounter; Y92.002 Bathroom of unspecified non-institutional (private) residence as the place of occurrence of the external cause
CPT/HCPCS: 90471; 90715; 99283

== ENCOUNTER 2018-01-11 19:05 | Inpatient (IN) | payer MEDICARE, BC ==
[2018-01-11] MEDS ORDERED: SODIUM CHLORIDE 0.9% 500 ML IV STA (19:23)
[2018-01-11] MEDS ORDERED: SODIUM CHLORIDE 0.9% 1,000 ML IV STA (19:23)
[2018-01-11 19:53] LABS: Basophils % (A) 1 %; Eosinophils # (A) 0.3 k/uL (0-0.7); Eosinophils % (A) 4 %; HCT 42.4 % (34.0-46.0); HGB 13.6 gm/dL (11.4-16.0); Lymphocytes # (A) 1.4 k/uL (1.0-4.8); Lymphocytes % (A) 25 %; MCH 30.5 pg (25.0-35.0); MCHC 32.2 g/dL (31.0-37.0); MCV 94.8 fL (80.0-100.0); Monocytes # (A) 0.5 k/uL (0-1.0); Monocytes % (A) 8 %; Neutrophils # (A) 3.5 k/uL (1.3-7.7); Neutrophils % (A) 61 %; Platelet Count 300 k/uL (150-450); RBC 4.47 m/uL (3.80-5.40); RDW 13.2 % (11.5-15.5); WBC 5.7 k/uL (3.8-10.6)
[2018-01-11 20:02] LABS: Partial Thromboplastin Time 23.7 sec (22.0-30.0); Prothrombin Time 9.6 sec (9.0-12.0)
[2018-01-11 20:13] LABS: ALT 17 U/L (9-52); AST 18 U/L (14-36); Albumin 3.7 g/dL (3.5-5.0); Alkaline Phosphatase 93 U/L (38-126); Anion Gap 7 mmol/L; Blood Urea Nitrogen 26 mg/dL (7-17); Carbon Dioxide 29 mmol/L (22-30); Chloride 105 mmol/L (98-107); Creatine Kinase 31 U/L (30-135); Glucose 139 mg/dL (74-99); Potassium 3.9 mmol/L (3.5-5.1); Sodium 141 mmol/L (137-145); Total Bilirubin 0.4 mg/dL (0.2-1.3); Total Protein 6.4 g/dL (6.3-8.2)
[2018-01-11 20:25] LABS: Creatine Kinase MB 0.4 ng/mL (0.0-2.4); Troponin I <0.012 ng/mL (0.000-0.034)
--- NOTE | 2018-01-11 20:55 | ED ---
General Adult HPI - General Chief complaint: Altered Mental Status Stated complaint: Weakness Time Seen by Provider: 01/11/18 19:22 Source: family, RN notes reviewed, old records reviewed Mode of arrival: wheelchair Limitations: altered mental status - History of Present Illness Initial comments: This is an 82-year-old female to the ER for evaluation patient presents today for evaluation from home. Patient has caregivers at home as well as family here with her today. Increased slurred speech increased sleeping and decreased activity level 3-4 days currently. Severe speech is persistent with difficulty in appetite. Patient also has a lot of or congestion no lower secretions that she is having difficulty handling. Family does not notice any fever. But that states she is acting similar to when she had prior pneumonia - Related Data Home Medications Medication Instructions Recorded Confirmed Levothyroxine Sodium [Synthroid] 25 mcg PO DAILY 10/12/13 01/11/18 Ibuprofen [Advil] 200 mg PO Q8HR PRN 01/11/18 01/11/18 Allergies Allergy/AdvReac Type Severity Reaction Status Date / Time Penicillins Allergy Rash/Hives Verified 01/11/18 19:20 Review of Systems ROS Statement: Those systems with pertinent positive or pertinent negative responses have been documented in the HPI. ROS Other: All systems not noted in ROS Statement are negative. Past Medical History Past Medical History: Hyperlipidemia, Hypertension, Thyroid Disorder Additional Past Medical History / Comment(s): per [facility] thyroid nodules, falls, compression fx to l1 and l3 in 2013 History of Any Multi-Drug Resistant Organisms: None Reported Past Surgical History: Appendectomy Additional Past Surgical History / Comment(s): colonoscopy Past Anesthesia/Blood Transfusion Reactions: No Reported Reaction Past Psychological History: No Psychological Hx Reported Smoking Status: Current every day smoker Past Alcohol Use History: None Reported Past Drug Use History: None Reported - Past Family History Father Family Medical History: Unable to Obtain Mother Family Medical History: Unable to Obtain Sister(s) Family Medical History: Cancer (patient had 3 sisters one of them from cancer developed to 100 polio and the other one no issues.) Daughter(s) Family Medical History: No Reported History (patient has one daughter no major medical problems.) Son(s) Family Medical History: No Reported History (patient has one son no major medical problems.) General Exam - General Exam Comments Initial Comments: NIH of 0 Limitations: altered mental status General appearance: alert, in no apparent distress Head exam: Present: atraumatic, normocephalic, normal inspection Eye exam: Present: normal appearance, PERRL, EOMI. Absent: scleral icterus, conjunctival injection, periorbital swelling ENT exam: Present: normal exam, mucous membranes moist Neck exam: Present: normal inspection. Absent: tenderness, meningismus, lymphadenopathy Respiratory exam: Present: normal lung sounds bilaterally. Absent: respiratory distress, wheezes, rales, rhonchi, stridor Cardiovascular Exam: Present: regular rate, normal rhythm, normal heart sounds. Absent: systolic murmur, diastolic murmur, rubs, gallop, clicks GI/Abdominal exam: Present: soft, normal bowel sounds. Absent: distended, tenderness, guarding, rebound, rigid Extremities exam: Present: normal inspection, full ROM, normal capillary refill. Absent: tenderness, pedal edema, joint swelling, calf tenderness Back exam: Present: normal inspection Neurological exam: Present: alert, oriented X3, CN II-XII intact Psychiatric exam: Present: normal affect, normal mood Skin exam: Present: warm, dry, intact, normal color. Absent: rash Course Vital Signs 01/11/18 01/11/18 01/11/18 19:08 21:48 22:33 Temperature 98.4 F 98.0 F Pulse Rate 75 70 64 Respiratory 16 18 Rate Blood Pressure 165/81 158/68 O2 Sat by Pulse 95 95 Oximetry 01/11/18 01/12/18 01/12/18 22:44 00:23 01:35 Temperature Pulse Rate 64 70 69 Respiratory 18 17 Rate Blood Pressure 171/76 178/84 O2 Sat by Pulse 95 94 L Oximetry 01/12/18 01:51 Temperature 98.0 F Pulse Rate Respiratory Rate Blood Pressure O2 Sat by Pulse Oximetry - Reevaluation(s) Reevaluation #1: 01/12/18 00:06 Patient is in no acute respiratory distress EKG Findings - EKG Comments: EKG Findings:: EKG shows sinus rhythm rate of 71, MN 138, QRS 90, QTc 467 Medical Decision Making - Medical Decision Making 82 female the ER for evaluation during surgery speech. Patient has possible aspiration pneumonia, will be admitted for possible CVA cause of slurred speech as well. - Lab Data Result diagrams: 01/11/18 19:38 01/11/18 19:38 Lab Results 01/11/18 01/11/18 01/11/18 Range/Units 19:38 19:38 19:38 WBC 5.7 (3.8-10.6) k/uL RBC 4.47 (3.80-5.40) m/uL Hgb 13.6 (11.4-16.0) gm/dL Hct 42.4 (34.0-46.0) % MCV 94.8 (80.0-100.0) fL MCH 30.5 (25.0-35.0) pg MCHC 32.2 (31.0-37.0) g/dL RDW 13.2 (11.5-15.5) % Plt Count 300 (150-450) k/uL Neutrophils % 61 % Lymphocytes % 25 % Monocytes % 8 % Eosinophils % 4 % Basophils % 1 % Neutrophils # 3.5 (1.3-7.7) k/uL Lymphocytes # 1.4 (1.0-4.8) k/uL Monocytes # 0.5 (0-1.0) k/uL Eosinophils # 0.3 (0-0.7) k/uL Basophils # 0.0 (0-0.2) k/uL PT (9.0-12.0) sec INR (<1.2) APTT (22.0-30.0) sec Sodium 141 (137-145) mmol/L Potassium 3.9 (3.5-5.1) mmol/L Chloride 105 (98-107) mmol/L Carbon Dioxide 29 (22-30) mmol/L Anion Gap 7 mmol/L BUN 26 H (7-17) mg/dL Creatinine 0.68 (0.52-1.04) mg/dL Est GFR (CKD-EPI)AfAm >90 (>60 ml/min/1.73 sqM) Est GFR (CKD-EPI)NonAf 82 (>60 ml/min/1.73 sqM) Glucose 139 H (74-99) mg/dL Calcium 9.0 (8.4-10.2) mg/dL Total Bilirubin 0.4 (0.2-1.3) mg/dL AST 18 (14-36) U/L ALT 17 (9-52) U/L Alkaline Phosphatase 93 (38-126) U/L Total Creatine Kinase 31 (30-135) U/L CK-MB (CK-2) 0.4 (0.0-2.4) ng/mL CK-MB (CK-2) Rel Index 1.3 Troponin I <0.012 (0.000-0.034) ng/mL Total Protein 6.4 (6.3-8.2) g/dL Albumin 3.7 (3.5-5.0) g/dL TSH (0.465-4.680) mIU/L Free T4 (0.78-2.19) ng/dL Urine Color Urine Appearance (Clear) Urine pH (5.0-8.0) Ur Specific [place] (1.001-1.035) Urine Protein (Negative) Urine Glucose (UA) (Negative) Urine Ketones (Negative) Urine Blood (Negative) Urine Nitrite (Negative) Urine Bilirubin (Negative) Urine Urobilinogen (<2.0) mg/dL Ur Leukocyte Esterase (Negative) 01/11/18 01/11/18 01/11/18 Range/Units 19:38 19:38 22:56 WBC (3.8-10.6) k/uL RBC (3.80-5.40) m/uL Hgb (11.4-16.0) gm/dL Hct (34.0-46.0) % MCV (80.0-100.0) fL MCH (25.0-35.0) pg MCHC (31.0-37.0) g/dL RDW (11.5-15.5) % Plt Count (150-450) k/uL Neutrophils % % Lymphocytes % % Monocytes % % Eosinophils % % Basophils % % Neutrophils # (1.3-7.7) k/uL Lymphocytes # (1.0-4.8) k/uL Monocytes # (0-1.0) k/uL Eosinophils # (0-0.7) k/uL Basophils # (0-0.2) k/uL PT 9.6 (9.0-12.0) sec INR 1.0 (<1.2) APTT 23.7 (22.0-30.0) sec Sodium (137-145) mmol/L Potassium (3.5-5.1) mmol/L Chloride (98-107) mmol/L Carbon Dioxide (22-30) mmol/L Anion Gap mmol/L BUN (7-17) mg/dL Creatinine (0.52-1.04) mg/dL Est GFR (CKD-EPI)AfAm (>60 ml/min/1.73 sqM) Est GFR (CKD-EPI)NonAf (>60 ml/min/1.73 sqM) Glucose (74-99) mg/dL Calcium (8.4-10.2) mg/dL Total Bilirubin (0.2-1.3) mg/dL AST (14-36) U/L ALT (9-52) U/L Alkaline Phosphatase (38-126) U/L Total Creatine Kinase (30-135) U/L CK-MB (CK-2) (0.0-2.4) ng/mL CK-MB (CK-2) Rel Index Troponin I (0.000-0.034) ng/mL Total Protein (6.3-8.2) g/dL Albumin (3.5-5.0) g/dL TSH 5.190 H (0.465-4.680) mIU/L Free T4 1.30 (0.78-2.19) ng/dL Urine Color Light Yellow Urine Appearance Clear (Clear) Urine pH 7.5 (5.0-8.0) Ur Specific [place] >1.050 H (1.001-1.035) Urine Protein Negative (Negative) Urine Glucose (UA) Negative (Negative) Urine Ketones Negative (Negative) Urine Blood Negative (Negative) Urine Nitrite Negative (Negative) Urine Bilirubin Negative (Negative) Urine Urobilinogen <2.0 (<2.0) mg/dL Ur Leukocyte Esterase Negative (Negative) - Radiology Data Radiology results: report reviewed (CT brain negative for acute disease, chest x -rays improved from prior), image reviewed Disposition Clinical Impression: Pneumonia, Altered mental status, TIA (transient ischemic attack), CVA ( cerebral vascular accident), Slurred speech Disposition: ADMITTED IP TO THIS HOSP
--- NOTE | 2018-01-11 21:02 | CT ---
EXAMINATION TYPE: CT brain wo con for TPA DATE OF EXAM: 01/11/2018 COMPARISON: 05/20/2014 HISTORY: Neuro deficits. CT DLP: 917.9 mGycm Automated exposure control for dose reduction was used. FINDINGS: There is cerebral cortical atrophy. There is patchy hypodensity throughout the periventricular white matter. There is no mass effect nor midline shift. There is no sign of intracranial hemorrhage. The c alvarium is intact. There is some mucosal thickening in the ethmoid and sphenoid sinus. IMPRESSION: CEREBRAL ATROPHY AND CHRONIC SMALL VESSEL ISCHEMIA. DILATED VERTEBROBASILAR ARTERY SYSTEM. NO ACUTE I NTRACRANIAL ABNORMALITY. BRAIN IS UNCHANGED COMPARED TO OLD EXAM. SINUSITIS.
--- NOTE | 2018-01-11 21:19 | CT ---
EXAMINATION TYPE: CT angio head neck DATE OF EXAM: 01/11/2018 HISTORY: Neuro deficits. COMPARISON: None CT DLP: 201 mGycm. Automated Exposure Control for Dose Reduction was Utilized. TECHNIQUE: CTA scan of the neck is performed with IV Contrast, patient injected with 65ml mL of Isov ue 370, axial images are obtained, coronal and sagittal reformatted images are reviewed. Three-D joan nstructed images are created on an independent workstation and reviewed. FINDINGS: There is normal branching pattern of the great vessels on the aortic arch. There is no superior media stinal mass. There is mild atheromatous change in the great vessels. There is bilateral arterial flow in the vertebral arteries. Left vertebral artery is small. There is contrast opacification of the common internal and external carotid arteries bilaterally. The re is mild plaque at the carotid artery bifurcations. Lumen narrowing is less than 25%. There is no e vidence of carotid or vertebral artery aneurysm or dissection. There is a large right vertebral artery. There is large basilar artery. There is arterial flow in the anterior middle and posterior cerebral arteries. There is a 5 x 7 cm an eurysm of the distal right middle cerebral artery in the anterior right sylvian fissure. There is no evidence of stenosis. There is no evidence of neovascularity. There is normal contrast opacification of the venous sinuses. There is mucosal thickening in the ethmoid and sphenoid sinus. IMPRESSION: Sinusitis. Minimal plaque at the carotid artery bifurcations and less than 25% stenosis at the origin of the int ernal carotid arteries. 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
--- NOTE | 2018-01-11 21:39 | XR ---
EXAMINATION TYPE: XR chest 2V DATE OF EXAM: 01/11/2018 COMPARISON: NONE HISTORY: Weakness TECHNIQUE: Frontal and lateral views of the chest are obtained. FINDINGS: There is no heart failure nor confluent pneumonic infiltrate. Thoracic aorta is atheromato us. Lungs are clear of consolidation. There are chest leads. Bones are osteopenic. IMPRESSION: No active cardiopulmonary disease. Atheromatous aorta.
[2018-01-11] MEDS ORDERED: IPRATROPIUM-ALBUTEROL 3 ML NEB INHALATION STA (22:20)
[2018-01-11 23:10] LABS: Appearance,Urine Clear (Clear); Bilirubin,Urine Negative (Negative); Blood,Urine Negative (Negative); Color,Urine Light Yellow; Glucose,Urine (UA) Negative (Negative); Ketones,Urine Negative (Negative); Leukocyte Esterase,Urine Negative (Negative); Nitrite,Urine Negative (Negative); PH, Urine 7.5 (5.0-8.0); Protein,Urine Negative (Negative); Urobilinogen,Urine <2.0 mg/dL (<2.0)
[2018-01-11 23:29] LABS: Specific Gravity,Urine >1.050 (1.001-1.035)
[2018-01-12] MEDS ORDERED: PNEUMONIA PROTOCOL UTILIZED 1 EACH MISC PO PRN (00:03)
[2018-01-12] MEDS ORDERED: AZITHROMYCIN 500 MG in SODIUM CHLORIDE 0.9% 250 ML IVPB STA (00:03)
[2018-01-12] MEDS ORDERED: ASPIRIN 325 MG TAB PO STA (00:03)
[2018-01-12] MEDS: SODIUM CHLORIDE 0.9% 1,000 ML IV SCH ×3 (00:15→09:12)
[2018-01-12 02:37] VITALS: BMI 21.9
[2018-01-12] MEDS ORDERED: LEVOTHYROXINE 25 MCG TAB PO SCH (10:15)
[2018-01-12] MEDS: IPRATROPIUM-ALBUTEROL 3 ML NEB INHALATION PRN (11:32)
--- NOTE | 2018-01-12 11:51 | P.HPIM ---
History of Present Illness H&P Date: 01/12/18 Chief Complaint: fall with mental status changes. This is an 82-year-old female one of Dr. Ric marin with a previous medical history significant for hypertension and hypertensive cardiovascular disease, also history of thyroid disease, patient was not feeling right yesterday and she was brought into the emergency department at [facility] by her daughter after she fell and she was not feeling right patient was also complaining of slurred speech according to her daughter, she was seen in emergency department and she stated that she is having some minimal coughing and white phlegm production she denies any chest pain at that time or any shortness breath she has no numbness or weakness she has no headache she did not feel any dizziness or lightheadedness she has no nausea or vomiting she has no chest pain patient was seen in the ER and she underwent CT angiography of the brain that showed 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 Her chest x-ray was reviewed and did not show any evidence of acute pulmonary disease. Review of Systems Constitutional: Reports anorexia, Reports weakness, Reports weight loss, Denies chronic headaches, Denies chronic pain, Denies lethargy, Denies malaise, Denies weight gain Eyes: denies blurred vision, denies bulging eye, denies decreased vision Ears: bilateral: decreased hearing Ears, nose, mouth and throat: Denies dysphagia, Denies neck lump, Denies swelling in throat, Denies sore throat Cardiovascular: Reports high blood pressure, Denies chest pain, Denies decreased exercise tolerance, Denies dyspnea on exertion, Denies phlebitis, Denies rapid heart beat, Denies shortness of breath, Denies syncope Respiratory: Reports cough, Reports cough with sputum, Denies congestion, Denies home oxygen, Denies sleep apnea, Denies snoring, Denies wheezing Gastrointestinal: Denies abdominal pain, Denies bloating, Denies BRBPR, Denies early satiety, Denies loss of appetite, Denies melena, Denies nausea, Denies vomiting Genitourinary: Denies dysuria, Denies hematuria Musculoskeletal: Denies myalgias Musculoskeletal: absent: ankle pain, ankle stiffness, ankle swelling, elbow pain , elbow stiffness, elbow swelling, foot pain, foot stiffness, foot swelling, hand pain, hand stiffness, hand swelling, hip pain, hip stiffness, hip swelling , knee pain, knee stiffness, knee swelling, shoulder pain, shoulder stiffness, shoulder swelling, wrist pain, wrist stiffness, wrist swelling Integumentary: Denies pruritus, Denies rash Neurological: Denies numbness, Denies weakness Psychiatric: Denies anxiety, Denies depression Endocrine: Denies fatigue, Denies weight change Past Medical History Past Medical History: COPD, CVA/TIA, GERD/Reflux, Hyperlipidemia, Hypertension, Osteoarthritis (OA), Thyroid Disorder, Vascular Disorder Additional Past Medical History / Comment(s): per [facility] thyroid nodules, falls, compression fx to l1 and l3 in 2013, 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 History of Any Multi-Drug Resistant Organisms: None Reported Past Surgical History: Appendectomy Additional Past Surgical History / Comment(s): colonoscopy Past Anesthesia/Blood Transfusion Reactions: No Reported Reaction Past Psychological History: No Psychological Hx Reported Smoking Status: Current every day smoker (patient smokes about a pack every day she is been smoking for many years and she still smoke) Past Alcohol Use History: None Reported Additional Past Alcohol Use History / Comment(s): started smoking at age 17 smokes 1ppd Past Drug Use History: None Reported - Past Family History Father Family Medical History: Cancer (father at age 49 from colon cancer.) Mother Family Medical History: Unable to Obtain (mother at age of 87 from old age. ) Sister(s) Family Medical History: Cancer (patient had 3 sisters one of them from cancer developed to 100 polio and the other one no issues.) Daughter(s) Family Medical History: No Reported History (patient has one daughter no major medical problems.) Son(s) Family Medical History: No Reported History (patient has one son no major medical problems.) Medications and Allergies Home Medications Medication Instructions Recorded Confirmed Type Levothyroxine Sodium [Synthroid] 25 mcg PO DAILY 10/12/13 01/11/18 History Ibuprofen [Advil] 200 mg PO Q8HR PRN 01/11/18 01/11/18 History Allergies Allergy/AdvReac Type Severity Reaction Status Date / Time Penicillins Allergy Rash/Hives Verified 01/11/18 19:20 Physical Exam Vitals: Vital Signs Temp Pulse Pulse Resp BP BP Pulse Ox 01/12/18 11:32 60 01/12/18 08:30 97.2 F L 70 16 149/75 95 01/12/18 08:11 97 01/12/18 04:00 97.1 F L 63 18 154/84 97 01/12/18 02:11 97.1 F L 69 20 162/90 96 01/12/18 01:51 98.0 F 01/12/18 01:35 69 17 178/84 94 L 01/12/18 00:23 70 18 171/76 95 01/11/18 22:44 64 01/11/18 22:33 64 01/11/18 21:48 98.0 F 70 18 158/68 95 01/11/18 19:08 98.4 F 75 16 165/81 95 Intake and Output 01/11/18 01/12/18 01/12/18 22:59 06:59 14:59 Intake Total 120 Balance 120 Intake: Oral 120 Other: Voiding Method Diaper Diaper Incontinent Incontinent Weight 63.503 kg 63.8 kg - Constitutional General appearance: average body habitus, no acute distress - EENT Eyes: anicteric sclerae, EOMI, no ptosis, no scleral icterus, normal appearance ENT: hard of hearing, NA/AT, normal oropharynx, no thrush Ears: bilateral: normal - Neck Neck: no lymphadenopathy, normal ROM, no rigidity, no stridor, no thyromegaly Carotids: bilateral: upstroke normal - Respiratory Respiratory: bilateral: diminished, prolonged expiration, negative: dullness, rales, rhonchi, wheezing - Cardiovascular Rhythm: regular Heart sounds: normal: S1, S2 Abnormal Heart Sounds: systolic murmur, no S3 Gallop, no S4 Gallop, no click - Gastrointestinal General gastrointestinal: normal bowel sounds, soft, no splenomegaly, no tenderness, no umbilical hernia, no ventral hernia - Integumentary Integumentary: normal, normal turgor - Neurologic Neurologic: CNII-XII intact - Musculoskeletal Musculoskeletal: generalized weakness, strength equal bilaterally - Psychiatric Psychiatric: A&O x's 3, appropriate affect, intact judgment & insight Results CBC & Chem 7: 01/11/18 19:38 01/11/18 19:38 Labs: Abnormal Lab Results - Last 24 Hours (Table) 01/11/18 01/11/18 01/11/18 Range/Units 19:38 19:38 22:56 BUN 26 H (7-17) mg/dL Glucose 139 H (74-99) mg/dL TSH 5.190 H (0.465-4.680) mIU/L Ur Specific [place] >1.050 H (1.001-1.035) Thrombosis Risk Factor Assmnt - DVT/VTE Prophylaxis DVT/VTE Prophylaxis: Mechanical Prophylaxis ordered - Choose All That Apply Any of the Below Risk Factors Present?: Yes Each Factor Represents 1 point: Serious lung disease incl. pneumonia (< 1month) Other Risk Factors: Yes Each Risk Factor Represents 3 Points: Age 75 years or older Other congenital or acquired thrombophilia - If yes, enter type in comment: No Thrombosis Risk Factor Assessment Total Risk Factor Score: 4 Thrombosis Risk Factor Assessment Level: Moderate Risk Assessment and Plan Assessment: Assessment and plan: 1. TIA/CVA. Patient's her speech has resolved. Computed tomography scan of the brain did show brain atrophy without evidence of acute CVA, however the CT angiography showed 57 cm right middle cerebral artery aneurysm, neurology evaluation, patient may need to be transferred to tertiary care center for further evaluation and treatment of her brain aneurysm at this point in time. 2. Possible bronchitis without evidence of pneumonia and a chest x-ray. Continue patient on Rocephin and Zithromax for now. 3. History of hypertension. Patient is not taking any medication at this point in time. 4. Hyperlipidemia. Patient is not taking a statin. 5. Hypothyroidism. Continue patient on Synthroid and increased the dose to 50 g orally once every day. 6. DVT prophylaxis. Bilateral knee-high BENITO hose. 7. GI prophylaxis. Protonix 40 mg orally once every day. 8. Tobacco use and dependence. Smoking cessation and counseling an increased risk of CAD, CVA, and malignancy. 9. Admit to inpatient. Estimate a length of stay 2 midnights. 10. Patient is full code for now.
[2018-01-12 14:50] LABS: T4, Free (Free Thyroxine) 1.3 ng/dL (0.78-2.19)
--- NOTE | 2018-01-12 19:33 | P.CNNES ---
History of Present Illness Consult date: 01/12/18 Requesting physician: Juaquin Blanc Reason for Consult: TIA, slurred speech History of Present Illness: Patient is a pleasant 82-year-old female who is being evaluated by the neurology service on 01/12/2018 per the request of Dr. Blanc for TIA and slurred speech. Patient has a medical history of hypertension, hypertensive cardiovascular disease, and hypothyroid. Patient lives at home with her however, they do have caregivers that come in daily to help them with their activities of daily living. Caregiver noticed that patient had increased slurred speech as well as increased generalized weakness. Caregiver called the daughter and patient was brought to [facility] for further evaluation. Patient denies any lateralizing weakness. She denies numbness or tingling of the extremities. Mild left facial asymmetry noted. Patient does not have a history of stroke. Patient had CT angiogram of the brain that showed a 5 x 7 mm aneurysm of the distal right middle cerebral artery in the anterior right sylvian fissure. Patient had CT of the brain which showed cerebral atrophy and chronic small vessel ischemia. CT showed no acute intracranial abnormality. Patient reported increased cough over the last week with production of white phlegm. Patient was started on antibiotics for possible pneumonia. Patient home medications include Synthroid and occasionally Advil. Vital signs on admission showed temperature 98.4, pulse rate 75, respiratory rate 16, blood pressure 165/81, and oxygen saturation 95% on room air. Labs on admission showed BUN of 26, glucose 139, and TSH 5.19. At the time of my evaluation, patient's resting comfortably in bed and appears to be in no acute distress. Review of Systems REVIEW OF SYSTEMS: Otherwise unremarkable and noncontributory. 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 History of Any Multi-Drug Resistant Organisms: None Reported Past Surgical History: Appendectomy Additional Past Surgical History / Comment(s): colonoscopy Past Anesthesia/Blood Transfusion Reactions: No Reported Reaction Past Psychological History: No Psychological Hx Reported Smoking Status: Current every day smoker (patient smokes about a pack every day she is been smoking for many years and she still smoke) Past Alcohol Use History: None Reported Additional Past Alcohol Use History / Comment(s): started smoking at age 17 smokes 1ppd Past Drug Use History: None Reported - Past Family History Father Family Medical History: Cancer (father at age 49 from colon cancer.) Mother Family Medical History: Unable to Obtain (mother at age of 87 from old age. ) Sister(s) Family Medical History: Cancer (patient had 3 sisters one of them from cancer developed to 100 polio and the other one no issues.) Daughter(s) Family Medical History: No Reported History (patient has one daughter no major medical problems.) Son(s) Family Medical History: No Reported History (patient has one son no major medical problems.) Medications and Allergies Home Medications Medication Instructions Recorded Confirmed Type Levothyroxine Sodium [Synthroid] 25 mcg PO DAILY 10/12/13 01/11/18 History Ibuprofen [Advil] 200 mg PO Q8HR PRN 01/11/18 01/11/18 History Allergies Allergy/AdvReac Type Severity Reaction Status Date / Time Penicillins Allergy Rash/Hives Verified 01/11/18 19:20 Physical Examination - Vital Signs Vital Signs: Vital Signs Temp Pulse Pulse Resp BP BP Pulse Ox 01/12/18 16:00 98.5 F 66 16 143/77 95 01/12/18 11:50 60 01/12/18 11:43 98 F 63 16 151/93 96 01/12/18 11:32 60 01/12/18 08:30 97.2 F L 70 16 149/75 95 01/12/18 08:11 97 01/12/18 04:00 97.1 F L 63 18 154/84 97 01/12/18 02:11 97.1 F L 69 20 162/90 96 01/12/18 01:51 98.0 F 01/12/18 01:35 69 17 178/84 94 L 01/12/18 00:23 70 18 171/76 95 01/11/18 22:44 64 01/11/18 22:33 64 01/11/18 21:48 98.0 F 70 18 158/68 95 Intake and Output 01/12/18 01/12/18 01/12/18 06:59 14:59 22:59 Intake Total 960 Output Total 100 Balance 960 -100 Intake: IV 600 Sodium Chloride 0.9% 1, 600 000 ml @ 100 mls/hr IV . Q10H [facility] Rx#:[id number] Oral 360 Output: Urine 100 Other: Voiding Method Diaper Diaper Diaper Incontinent Incontinent Incontinent # Voids 1 Weight 63.8 kg PHYSICAL EXAM: GENERAL APPEARANCE: Patient is a well-developed, female who appears to be in no acute distress. HEENT: Normocephalic, atraumatic, no facial asymmetry is seen. Neck is supple with no masses felt. CARDIOVASCULAR: Regular rate and rhythm. ABDOMEN: Nontender, nondistended. EXTREMITIES: Show no edema or clubbing. NEUROLOGICAL EXAM: Patient is awake, alert, and oriented 2. Patient stated president is [place]. Speech is dysarthric, language is normal. Strength is 5-/ 5 in all 4 extremities. Sensory exam is normal to light touch in all 4 extremities. Mild left facial droop noted on cranial nerve testing. No tremors or seizure-like activity noted. Results - Laboratory Findings CBC and BMP: 01/11/18 19:38 01/11/18 19:38 Abnormal Lab Findings: Abnormal Labs 01/11/18 01/11/18 01/11/18 19:38 19:38 22:56 BUN 26 H Glucose 139 H TSH 5.190 H Ur Specific [place] >1.050 H Assessment and Plan Plan: Impression: 1. TIA/CVA 2. Dysarthria 3. Left facial droop, resolving 4. Hypertension 5. COPD 6. Thyroid disorder Recommendations: It does appear patient suffered a possible stroke with left sided facial droop and dysarthria. Due to ongoing symptoms, I will order an MRI of the brain, EEG, fasting lipid panel and serum homocysteine level. I recommend low-dose antiplatelet therapy, however, I will hold on this for now due to finding of aneurysm. I do recommend low-dose statin to be started. I recommend blood pressure control as her blood pressure can be elevated at times. I recommend PT OT to evaluate and treat. I recommend speech therapy for speech training, cognitive training, and swallow testing. CTA showed a 5 x 7 mm aneurysm of the distal right middle cerebral artery. I recommend a neurosurgical consult once patient has been discharged. Continue current medical management. Continue neurological checks. I will continue to follow with you. Further recommendations to follow. Thank you for allowing me to participate in the care of your patient. Any questions, feel free to contact me. I performed an examination of the patient and discussed the management with the POUNCER. I have reviewed the POUNCER notes and agree with the findings and plan of care.
[2018-01-13] MEDS: ASPIRIN 325 MG TAB PO SCH ×2 (00:54→09:14)
[2018-01-13] MEDS: LEVOTHYROXINE 50 MCG TAB PO SCH (06:01)
[2018-01-13 06:33] LABS: Basophils % (A) 1 %; Eosinophils # (A) 0.2 k/uL (0-0.7); Eosinophils % (A) 5 %; HCT 39.3 % (34.0-46.0); HGB 12.6 gm/dL (11.4-16.0); Lymphocytes # (A) 1.6 k/uL (1.0-4.8); Lymphocytes % (A) 31 %; MCH 30.8 pg (25.0-35.0); MCHC 32.2 g/dL (31.0-37.0); MCV 95.7 fL (80.0-100.0); Monocytes # (A) 0.4 k/uL (0-1.0); Monocytes % (A) 8 %; Neutrophils # (A) 2.6 k/uL (1.3-7.7); Neutrophils % (A) 53 %; Platelet Count 261 k/uL (150-450); RBC 4.11 m/uL (3.80-5.40); RDW 13.1 % (11.5-15.5); WBC 4.9 k/uL (3.8-10.6)
[2018-01-13 07:01] LABS: ALT 16 U/L (9-52); AST 20 U/L (14-36); Albumin 3.3 g/dL (3.5-5.0); Alkaline Phosphatase 76 U/L (38-126); Anion Gap 7 mmol/L; Blood Urea Nitrogen 13 mg/dL (7-17); Calcium 8.4 mg/dL (8.4-10.2); Carbon Dioxide 26 mmol/L (22-30); Chloride 107 mmol/L (98-107); Cholesterol 191 mg/dL (<200); Glucose 86 mg/dL (74-99); HDL Cholesterol 62 mg/dL (40-60); LDL Cholesterol,Calculated 116 mg/dL (0-99); Potassium 3.7 mmol/L (3.5-5.1); Sodium 140 mmol/L (137-145); Total Bilirubin 0.6 mg/dL (0.2-1.3); Total Protein 5.9 g/dL (6.3-8.2); Triglycerides 63 mg/dL (<150)
--- NOTE | 2018-01-13 10:01 | XR ---
EXAMINATION TYPE: XR chest 2V DATE OF EXAM: 01/13/2018 HISTORY: pneumonia. REFERENCE: Previous study dated 09/27/2017. FINDINGS: The heart is mildly prominent. Pulmonary vasculature is prominent. There has developed a le ft basilar opacity and a small left effusion. IMPRESSION: 1. MILD CARDIOMEGALY. 2. LEFT BASILAR OPACITY WITH A CONCOMITANT SMALL EFFUSION.
--- NOTE | 2018-01-13 11:37 | MR ---
EXAMINATION TYPE: MR brain wo con DATE OF EXAM: 01/13/2018 11:25 AM. COMPARISON: NONE. HISTORY: Stroke. Technique: Multiplanar, multiecho imaging of the brain was obtained without intravenous contrast. FINDINGS: There are generalized changes of sulcal prominence and ventriculomegaly, compatible with a trophic change. There is a 1 cm area of restricted diffusion in the left side of the corpus callosum in its midportio n. This likely reflects an subacute ischemic event. Central structures are otherwise unremarkable. Th ere is a normal craniocervical junction. There are normal vascular flow voids. The orbits are unremarkable. There is no evidence of a CP angle mass lesion. There is some mucoperiosteal disease involving the ethmoid sinuses, worse on the right than the left. 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 There are several old lacunar infarcts in the straight ganglia on the r ight. There is no mass effect, midline shift or intracranial blood. IMPRESSION: 1. SUBACUTE INFARCTION INVOLVING THE LEFT SIDE OF THE BODY OF THE CORPUS CALLOSUM. 2. DIFFUSE PERIVENTRICULAR WHITE MATTER LUCENCY COMPATIBLE WITH CHRONIC ISCHEMIC CHANGE. 3. SPINAL SINUSITIS, WORSE ON THE RIGHT THAN THE LEFT. 4. OLD LACUNAR INFARCT VERSUS DILATED VIRCHOW-HOMER SPACES IN THE BASAL GANGLIA ON THE RIGHT.
[2018-01-13] MEDS: LISINOPRIL 10 MG TAB PO SCH (12:55)
--- NOTE | 2018-01-13 17:27 | P.PN ---
Subjective Progress Note Date: 01/13/18 Patient is a pleasant 82-year-old female who is being followed by the neurology service for CVA. Patient has history hypertension, hypertensive cardiovascular disease, and hypothyroid. Patient lives at home and has caregivers coming daily to help with ADLs. Caregiver noticed patient had increased slurred speech and increased generalized weakness so patient was brought to [facility] for evaluation. Computed tomography scan of the brain showed cerebral atrophy and chronic small vessel ischemia. MRI of the brain showed subacute infarction involving the left side of the body of the corpus callosum. CTA showed minimal plaque at the carotid artery bifurcations and less than 25% stenosis at the origin of the internal carotid arteries. CTA also showed a 5 x 7 mm aneurysm of the distal right middle cerebral artery. Patient is currently being treated with antibiotics for possible bronchitis. At the time of my evaluation, patient is resting comfortably in bed and appears to be in no acute distress. Objective - Vital Signs Vital signs: Vital Signs Temp 96.7 F L 01/13/18 08:00 Pulse 56 L 01/13/18 12:00 Resp 18 01/13/18 12:00 BP 190/81 01/13/18 12:00 Pulse Ox 96 01/13/18 12:00 Intake & Output 01/12/18 01/13/18 01/13/18 18:59 06:59 18:59 Intake Total 960 354 298 Output Total 100 Balance 860 354 298 Weight 63.1 kg Intake: IV 600 Sodium Chloride 0.9% 1, 600 000 ml @ 100 mls/hr IV . Q10H [facility] Rx#:[id number] Oral 360 354 298 Output: Urine 100 Other: Voiding Method Diaper Diaper Diaper Incontinent Incontinent Incontinent # Voids 1 1 3 - Exam PHYSICAL EXAM: GENERAL APPEARANCE: Patient is a well-developed, female who appears to be in no acute distress. HEENT: Normocephalic, atraumatic, mild left facial asymmetry is seen. Neck is supple with no masses felt. CARDIOVASCULAR: Regular rate and rhythm. ABDOMEN: Nontender, nondistended. EXTREMITIES: Show no edema or clubbing. NEUROLOGICAL EXAM: Patient is awake, alert, and oriented 3. Speech is mildly dysarthric. Language is normal. Strength is full in all 4 extremities. Sensory exam to light touch is normal in all 4 extremities. Mild left facial asymmetry seen on cranial nerve testing. No tremors or seizure-like activity noted. - Labs CBC & Chem 7: 01/13/18 06:04 01/13/18 06:04 Labs: Abnormal Lab Results - Last 24 Hours (Table) 01/13/18 Range/Units 06:04 Total Protein 5.9 L (6.3-8.2) g/dL Albumin 3.3 L (3.5-5.0) g/dL LDL Cholesterol, Calc 116 H (0-99) mg/dL HDL Cholesterol 62 H (40-60) mg/dL Microbiology - Last 24 Hours (Table) 01/11/18 22:56 Urine Culture - Preliminary Urine,Voided Gram Neg Bacilli 01/12/18 00:36 Blood Culture - Preliminary Blood No Growth after 24 hours Assessment and Plan Plan: Impression: 1. CVA 2. Dysarthria 3. Left facial droop, resolving 4. Hypertension 5. COPD 6. Thyroid disorder Recommendations: It does appear patient suffered a possible stroke with left sided facial droop and dysarthria. Due to ongoing symptoms, I ordered an MRI of the brain which showed a subacute infarction involving the left side of the body of the corpus callosum. EEG was done and results are pending. Her fasting lipid panel showed elevated LDL of 116. Her serum homocysteine level is normal. Continue antiplatelet therapy. Continue low-dose statin. I recommend blood pressure control as her blood pressure can be elevated at times. I recommend PT OT to evaluate and treat. I recommend speech therapy for speech training, cognitive training, and swallow testing. CTA showed a 5 x 7 mm aneurysm of the distal right middle cerebral artery. I recommend a neurosurgical consult once patient has been discharged. Patient will most likely need short-term inpatient rehab prior to going home. Continue current medical management. Continue neurological checks. I will continue to follow with you. Further recommendations to follow. I performed an examination of the patient and discussed the management with the [facility]TERN[facility]. I have reviewed the [facility] PATTERNMAKER notes and agree with the findings and plan of care.
--- NOTE | 2018-01-13 17:41 | P.PN ---
Subjective Progress Note Date: 01/13/18 This is an 82-year-old female one of Dr. Ric marin with a previous medical history significant for hypertension and hypertensive cardiovascular disease, also history of thyroid disease, patient was not feeling right yesterday and she was brought into the emergency department at [facility] by her daughter after she fell and she was not feeling right patient was also complaining of slurred speech according to her daughter, she was seen in emergency department and she stated that she is having some minimal coughing and white phlegm production she denies any chest pain at that time or any shortness breath she has no numbness or weakness she has no headache she did not feel any dizziness or lightheadedness she has no nausea or vomiting she has no chest pain patient was seen in the ER and she underwent CT angiography of the brain that showed 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 Her chest x-ray was reviewed and did not show any evidence of acute pulmonary disease. 01/13 patient is currently 2 person assist per nursing staff, no aspirative events, patient declined to quit smoking and is not ready. Mri brain to be done today without any premedication needed, Therapies consulted Objective - Vital Signs Vital signs: Vital Signs Temp 97 F L 01/13/18 03:39 Pulse 67 01/13/18 04:00 Resp 16 01/13/18 04:00 BP 141/84 01/13/18 03:39 Pulse Ox 95 01/13/18 03:39 Intake & Output 01/12/18 01/13/18 01/13/18 18:59 06:59 18:59 Intake Total 960 354 Output Total 100 Balance 860 354 Weight 63.1 kg Intake: IV 600 Sodium Chloride 0.9% 1, 600 000 ml @ 100 mls/hr IV . Q10H [facility] Rx#:[id number] Oral 360 354 Output: Urine 100 Other: Voiding Method Diaper Diaper Incontinent Incontinent # Voids 1 1 - Constitutional General appearance: Present: average body habitus, cooperative, no acute distress - EENT Eyes: Present: EOMI, PERRLA, poor dentition, normal appearance ENT: Present: hearing grossly normal, normal oropharynx - Neck Neck: Present: normal ROM - Respiratory Respiratory: bilateral: CTA, diminished, negative: dullness, rales, rhonchi, prolonged expiration - Cardiovascular Heart sounds: normal: S1 Abnormal Heart Sounds: Absent: systolic murmur, diastolic murmur, rub, S3 Gallop , S4 Gallop, click, other - Gastrointestinal General gastrointestinal: Present: normal bowel sounds - Integumentary Integumentary: Present: normal - Neurologic Neurologic: Present: CNII-XII intact, focal deficits (left facial droop) - Musculoskeletal Musculoskeletal: Present: generalized weakness, strength equal bilaterally - Psychiatric Psychiatric: Present: A&O x's 3 - Labs CBC & Chem 7: 01/13/18 06:04 01/13/18 06:04 Labs: Abnormal Lab Results - Last 24 Hours (Table) 01/11/18 01/13/18 Range/Units 19:38 06:04 Total Protein 5.9 L (6.3-8.2) g/dL Albumin 3.3 L (3.5-5.0) g/dL LDL Cholesterol, Calc 116 H (0-99) mg/dL HDL Cholesterol 62 H (40-60) mg/dL TSH 5.190 H (0.465-4.680) mIU/L Microbiology - Last 24 Hours (Table) 01/12/18 00:36 Blood Culture - Preliminary Blood No Growth after 24 hours 01/11/18 22:56 Urine Culture - Preliminary Urine,Voided Assessment and Plan Assessment: 1. TIA/CVA left facial droop Patient's her speech has resolved. Computed tomography scan of the brain did show brain atrophy without evidence of acute CVA, however the CT angiography showed 57 cm right middle cerebral artery aneurysm, neurology evaluation, patient may need to be transferred to tertiary care center for further evaluation and treatment of her brain aneurysm at this point in time. 2. CHRONIC bronchitis from smokers cough without evidence of pneumonia and a chest x-ray. Continue patient on Rocephin and Zithromax for now. 3. History of hypertension. start lisinopril 10 daily titrate as needed 4. Hyperlipidemia. started on lipitor 20 5. Hypothyroidism. Continue patient on Synthroid and increased the dose to 50 g orally once every day. 6. DVT prophylaxis. Bilateral knee-high BENITO hose. 7. GI prophylaxis. Protonix 40 mg orally once every day. 8. Tobacco use and dependence. Smoking cessation and counseling an increased risk of CAD, CVA, and malignancy. 9. Admit to inpatient. Estimate a length of stay 2 midnights. 10 debility, 2 person assist, baseline walker use on community ambulation, obtain pt ot , SUBACUTE REHAB NEEDED POST DISCHARGE 10. Patient is full code for now
[2018-01-13] MEDS: AZITHROMYCIN 500 MG TAB PO SCH (20:03)
[2018-01-13] MEDS: ATORVASTATIN 20 MG TAB PO SCH (20:03)
[2018-01-13] MEDS: IPRATROPIUM-ALBUTEROL 3 ML NEB INHALATION PRN (20:29)
[2018-01-14] MEDS: LEVOTHYROXINE 50 MCG TAB PO SCH (06:35)
[2018-01-14] MEDS: IPRATROPIUM-ALBUTEROL 3 ML NEB INHALATION PRN (08:07)
[2018-01-14] MEDS: ASPIRIN 325 MG TAB PO SCH (08:47)
[2018-01-14] MEDS: LISINOPRIL 10 MG TAB PO SCH ×2 (08:47→21:09)
[2018-01-14] MEDS: MELOXICAM 7.5 MG TAB PO SCH (12:18)
--- NOTE | 2018-01-14 17:24 | P.PN ---
Subjective Progress Note Date: 01/14/18 Patient is a pleasant 82-year-old female who is being followed by the neurology service for CVA. Patient has history hypertension, hypertensive cardiovascular disease, and hypothyroid. Patient lives at home and has caregivers coming daily to help with ADLs. Caregiver noticed patient had increased slurred speech and increased generalized weakness so patient was brought to [facility] for evaluation. Computed tomography scan of the brain showed cerebral atrophy and chronic small vessel ischemia. MRI of the brain showed subacute infarction involving the left side of the body of the corpus callosum. CTA showed minimal plaque at the carotid artery bifurcations and less than 25% stenosis at the origin of the internal carotid arteries. CTA also showed a 5 x 7 mm aneurysm of the distal right middle cerebral artery. Patient is currently being treated with antibiotics for possible bronchitis. At the time of my evaluation, patient is resting comfortably in bed and appears to be in no acute distress. 01/14/2018 Patient is a pleasant 82-year-old female who is being followed by the neurology service for CVA. Patient is doing much better today. Speech is much clearer. Patient is eating well without dysphagia. No new neurological deficits. Patient continues on antibiotics for bronchitis. At the time of my evaluation, patient is resting comfortably in bed and appears to be in no acute distress. Family is at the bedside. Objective - Vital Signs Vital signs: Vital Signs Temp 98.1 F 01/14/18 16:53 Pulse 61 01/14/18 16:53 Resp 18 01/14/18 16:53 BP 148/82 01/14/18 16:53 Pulse Ox 95 01/14/18 16:53 Intake & Output 01/13/18 01/14/18 01/14/18 18:59 06:59 18:59 Intake Total 658 120 240 Balance 658 120 240 Weight 63.6 kg Intake: Oral 658 120 240 Other: Voiding Method Diaper Diaper Diaper Incontinent Incontinent Incontinent # Voids 2 3 1 - Exam PHYSICAL EXAM: GENERAL APPEARANCE: Patient is a well-developed, female who appears to be in no acute distress. HEENT: Normocephalic, atraumatic, mild left facial asymmetry is seen. Neck is supple with no masses felt. CARDIOVASCULAR: Regular rate and rhythm. ABDOMEN: Nontender, nondistended. EXTREMITIES: Show no edema or clubbing. NEUROLOGICAL EXAM: Patient is awake, alert, and oriented 3. Speech is mildly dysarthric but improved. Language is normal. Strength is full in all 4 extremities. Sensory exam to light touch is normal in all 4 extremities. Mild left facial asymmetry seen on cranial nerve testing. No tremors or seizure- like activity noted. - Labs CBC & Chem 7: 01/13/18 06:04 01/13/18 06:04 Labs: Microbiology - Last 24 Hours (Table) 01/11/18 22:56 Urine Culture - Final Urine,Voided Klebsiella pneumoniae 01/12/18 00:36 Blood Culture - Preliminary Blood No Growth after 48 hours Assessment and Plan Plan: Impression: 1. CVA 2. Dysarthria, improving 3. Left facial droop, resolving 4. Hypertension 5. COPD 6. Thyroid disorder Recommendations: It does appear patient suffered a possible stroke with left sided facial droop and dysarthria. Due to ongoing symptoms, I ordered an MRI of the brain which showed a subacute infarction involving the left side of the body of the corpus callosum. EEG was done and results are pending. Her fasting lipid panel showed elevated LDL of 116. Her serum homocysteine level is normal. Continue antiplatelet therapy. Continue low-dose statin. I recommend blood pressure control as her blood pressure can be elevated at times. Continue PT OT and speech therapy. CTA showed a 5 x 7 mm aneurysm of the distal right middle cerebral artery. I recommend a neurosurgical consult once patient has been discharged. Patient will most likely need short-term inpatient rehab prior to going home. Continue current medical management. Continue neurological checks. Barring any abnormality on the EEG, I will continue to follow with you on an as-needed basis. I performed an examination of the patient and discussed the management with the [facility]. I have reviewed the [facility] notes and agree with the findings and plan of care.
--- NOTE | 2018-01-14 19:36 | P.PN ---
Subjective Progress Note Date: 01/14/18 This is an 82-year-old female one of Dr. Cruz with a previous medical history significant for hypertension and hypertensive cardiovascular disease, also history of thyroid disease, patient was not feeling right yesterday and she was brought into the emergency department at [facility] by her daughter after she fell and she was not feeling right patient was also complaining of slurred speech according to her daughter, she was seen in emergency department and she stated that she is having some minimal coughing and white phlegm production she denies any chest pain at that time or any shortness breath she has no numbness or weakness she has no headache she did not feel any dizziness or lightheadedness she has no nausea or vomiting she has no chest pain patient was seen in the ER and she underwent CT angiography of the brain that showed 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 Her chest x-ray was reviewed and did not show any evidence of acute pulmonary disease. 01/13 patient is currently 2 person assist per nursing staff, no aspirative events, patient declined to quit smoking and is not ready. Mri brain to be done today without any premedication needed, Therapies consulted 01/14 MRI showed suabacute infarction involving the left side of the body of the corpus callosum. CTA showed minimal plaque at the carotid artery bifurcations and less than 25% stenosis at the origin of the internal carotid arteries. therapies have recommend F subacute rehabilititation, patient is aware of this plan, patient complains of poor sleep sleeping at 3 am, patient drowsy during daytime .melatonin started, blood pressure medication adjusted to lisinopril 10 bid. Objective - Vital Signs Vital signs: Vital Signs Temp 96.6 F L 01/14/18 08:00 Pulse 66 01/14/18 08:00 Resp 18 01/14/18 08:00 BP 143/63 01/14/18 08:00 Pulse Ox 93 L 01/14/18 08:00 Intake & Output 01/13/18 01/14/18 01/14/18 18:59 06:59 18:59 Intake Total 658 120 Balance 658 120 Weight 63.6 kg Intake: Oral 658 120 Other: Voiding Method Diaper Diaper Diaper Incontinent Incontinent Incontinent # Voids 2 3 - Constitutional General appearance: Present: average body habitus, cooperative, no acute distress - EENT Eyes: Present: anicteric sclerae, EOMI, PERRLA, dentition normal, normal appearance ENT: Present: hard of hearing, NA/AT, normal oropharynx - Neck Neck: Present: normal ROM. Absent: lymphadenopathy, other, rigidity, stridor, thyromegaly - Respiratory Respiratory: bilateral: CTA, negative: diminished, dullness, rales, rhonchi, wheezing, prolonged expiration - Cardiovascular Rhythm: regular Heart sounds: normal: S1, S2 - Gastrointestinal General gastrointestinal: Present: normal bowel sounds, soft - Integumentary Integumentary: Present: decreased turgor, normal - Neurologic Neurologic: Present: CNII-XII intact - Musculoskeletal Musculoskeletal: Present: generalized weakness, strength equal bilaterally - Labs CBC & Chem 7: 01/13/18 06:04 01/13/18 06:04 Labs: Microbiology - Last 24 Hours (Table) 01/11/18 22:56 Urine Culture - Final Urine,Voided Klebsiella pneumoniae 01/12/18 00:36 Blood Culture - Preliminary Blood No Growth after 48 hours Assessment and Plan Assessment: 1. 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 CTA showed minimal plaque at the carotid artery bifurcations and less than 25% stenosis at the origin of the internal carotid arteries. CTA also showed a 5 x 7 mm aneurysm of the distal right middle cerebral artery/CVA left facial droop Patient's her speech has resolved. Computed tomography scan of the brain did show brain atrophy without evidence of acute CVA, however the CT angiography showed 57 cm right middle cerebral artery aneurysm, neurology evaluation, OP eval with neurosurgeon at time of discharge. subacute rehabilitation recommended post discharge, currently 2 person assistance with 24 hour supervision 2. CHRONIC bronchitis from smokers cough without evidence of pneumonia and a chest x-ray. Continue patient on Rocephin and Zithromax for now. 3. History of hypertension. new lisinopril 10 increased to bid 4. Hyperlipidemia. started on lipitor 20 5. Hypothyroidism. Continue patient on Synthroid and increased the dose to 50 g orally once every day. 6. DVT prophylaxis. Bilateral knee-high BENITO hose. 7. GI prophylaxis. Protonix 40 mg orally once every day. 8. Tobacco use and dependence. Smoking cessation and counseling an increased risk of CAD, CVA, and malignancy. 9. Admit to inpatient. Estimate a length of stay 2 midnights. 10 debility, 2 person assist, baseline walker use on community ambulation, obtain pt ot , SUBACUTE REHAB NEEDED POST DISCHARGE 10. Patient is full code for now 12, discharge plaaning; subacute rehabilitaion.
[2018-01-14] MEDS: ATORVASTATIN 20 MG TAB PO SCH (21:09)
[2018-01-14] MEDS: AZITHROMYCIN 500 MG TAB PO SCH (21:09)
[2018-01-14] MEDS: MELATONIN 3 MG TABLET PO SCH (21:10)
[2018-01-15] MEDS: LEVOTHYROXINE 50 MCG TAB PO SCH (06:17)
[2018-01-15] MEDS: ASPIRIN 325 MG TAB PO SCH (08:53)
[2018-01-15] MEDS: LISINOPRIL 10 MG TAB PO SCH ×2 (08:53→21:36)
[2018-01-15] MEDS: MELOXICAM 7.5 MG TAB PO SCH (08:53)
--- NOTE | 2018-01-15 15:24 | P.PN ---
Subjective Progress Note Date: 01/15/18 This is an 82-year-old female one of Dr. Cruz with a previous medical history significant for hypertension and hypertensive cardiovascular disease, also history of thyroid disease, patient was not feeling right yesterday and she was brought into the emergency department at [facility] by her daughter after she fell and she was not feeling right patient was also complaining of slurred speech according to her daughter, she was seen in emergency department and she stated that she is having some minimal coughing and white phlegm production she denies any chest pain at that time or any shortness breath she has no numbness or weakness she has no headache she did not feel any dizziness or lightheadedness she has no nausea or vomiting she has no chest pain patient was seen in the ER and she underwent CT angiography of the brain that showed 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 Her chest x-ray was reviewed and did not show any evidence of acute pulmonary disease. 01/13 patient is currently 2 person assist per nursing staff, no aspirative events, patient declined to quit smoking and is not ready. Mri brain to be done today without any premedication needed, Therapies consulted 01/14 MRI showed suabacute infarction involving the left side of the body of the corpus callosum. CTA showed minimal plaque at the carotid artery bifurcations and less than 25% stenosis at the origin of the internal carotid arteries. therapies have recommend [facility] subacute rehabilititation, patient is aware of this plan, patient complains of poor sleep sleeping at 3 am, patient drowsy during daytime .melatonin started, blood pressure medication adjusted to lisinopril 10 bid. 01/15: Patient denies any new complaints. Her breathing status is stable. She states she slept well last night after given melatonin. Plan for discharge to [facility] tomorrow. Objective - Vital Signs Vital signs: Vital Signs Temp 97.6 F 01/15/18 05:00 Pulse 60 01/15/18 05:00 Resp 16 01/15/18 05:00 BP 165/77 01/15/18 05:00 Pulse Ox 95 01/15/18 05:00 Intake & Output 01/14/18 01/15/18 01/15/18 18:59 06:59 18:59 Intake Total 240 480 Balance 240 480 Intake: Oral 240 480 Other: Voiding Method Diaper Diaper Incontinent Incontinent # Voids 1 3 - Exam General appearance: Present: average body habitus, cooperative, no acute distress - EENT Eyes: Present: anicteric sclerae, EOMI, PERRLA, dentition normal, normal appearance ENT: Present: hard of hearing, NA/AT, normal oropharynx - Neck Neck: Present: normal ROM. Absent: lymphadenopathy, other, rigidity, stridor, thyromegaly - Respiratory Respiratory: bilateral: CTA, negative: diminished, dullness, rales, rhonchi, wheezing, prolonged expiration - Cardiovascular Rhythm: regular Heart sounds: normal: S1, S2 - Gastrointestinal General gastrointestinal: Present: normal bowel sounds, soft - Integumentary Integumentary: Present: decreased turgor, normal - Neurologic Neurologic: Present: CNII-XII intact - Musculoskeletal Musculoskeletal: Present: generalized weakness, strength equal bilaterally - Labs CBC & Chem 7: 01/13/18 06:04 01/13/18 06:04 Labs: Microbiology - Last 24 Hours (Table) 01/12/18 00:36 Blood Culture - Preliminary Blood No Growth after 72 hours 01/11/18 22:56 Urine Culture - Final Urine,Voided Klebsiella pneumoniae Assessment and Plan Plan: 1. 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 CTA showed minimal plaque at the carotid artery bifurcations and less than 25% stenosis at the origin of the internal carotid arteries. CTA also showed a 5 x 7 mm aneurysm of the distal right middle cerebral artery/CVA left facial droop Patient's her speech has resolved. Computed tomography scan of the brain did show brain atrophy without evidence of acute CVA, however the CT angiography showed 57 cm right middle cerebral artery aneurysm, neurology evaluation, OP eval with neurosurgeon at time of discharge. subacute rehabilitation recommended post discharge, currently 2 person assistance with 24 hour supervision 2. CHRONIC bronchitis from smokers cough without evidence of pneumonia and a chest x-ray. Continue patient on Rocephin and Zithromax for now. 3. History of hypertension. new lisinopril 10 increased to bid 4. Hyperlipidemia. started on lipitor 20 5. Hypothyroidism. Continue patient on Synthroid and increased the dose to 50 g orally once every day. 6. DVT prophylaxis. Bilateral knee-high BENITO hose. 7. GI prophylaxis. Protonix 40 mg orally once every day. 8. Tobacco use and dependence. Smoking cessation and counseling an increased risk of CAD, CVA, and malignancy. 9. Admit to inpatient. Estimate a length of stay 2 midnights. 10 debility, 2 person assist, baseline walker use on community ambulation, obtain pt ot , SUBACUTE REHAB NEEDED POST DISCHARGE CODE STATUS: No code Discharge plan: [facility] on Monday Impression and plan of care have been directed as dictated by the signing physician. Mariam Bear nurse practitioner acting as scribe for signing physician.
--- NOTE | 2018-01-15 18:16 | EEG ---
ELECTROENCEPHALOGRAM REPORT DATE OF SERVICE: 01/13/2018 REASON FOR TESTING: Transient ischemic attack and altered mental status. DESCRIPTION OF THE PROCEDURE: This EEG was performed using a 21-channel digital electroencephalograph, following international 10-20 system. DESCRIPTION OF THE RECORDING: From the beginning of the tracing, and with the patient's eyes closed, the background rhythm was mostly consisting of 8 Hz alpha frequency in the posterior occipital leads. No obvious asymmetry is seen except for occasional muscle artifacts noticed on the right more than the left. Photic stimulation was performed with a minimal driving response seen. No pathological waves were elicited. Hyperventilation was not performed. Later in the tracing, the patient does reach stage II of sleep, and occasional K complexes are seen. No epileptiform discharges were seen. Her EKG lead showed a regular rate and rhythm. INTERPRETATION: This asleep and awake EEG can be considered within normal limits. There was no asymmetry seen. No epileptiform discharges were noticed. The absence of epileptiform discharges does not rule out the diagnosis of epilepsy; therefore clinical correlation is recommended. MMVAHID / IJN: [id number] /
[2018-01-15] MEDS: MELATONIN 3 MG TABLET PO SCH (21:36)
[2018-01-15] MEDS: AZITHROMYCIN 500 MG TAB PO SCH (21:36)
[2018-01-15] MEDS: ATORVASTATIN 20 MG TAB PO SCH (21:36)
[2018-01-15 21:38] VITALS: RESP 16
[2018-01-16 06:01] VITALS: BP 133/69; PULSE 57; TEMP 96.9
[2018-01-16] MEDS: LEVOTHYROXINE 50 MCG TAB PO SCH (06:11)
[2018-01-16] MEDS: MELOXICAM 7.5 MG TAB PO SCH (08:48)
[2018-01-16] MEDS: ASPIRIN 325 MG TAB PO SCH (08:48)
[2018-01-16] MEDS: LISINOPRIL 10 MG TAB PO SCH (08:48)
--- NOTE | 2018-01-16 10:08 | P.DS ---
Providers Date of admission: 01/13/18 11:23 Expected date of discharge: 01/16/18 Attending physician: Juaquin Blanc Consults: 01/12/18 10:00 Consult Physician Routine Consulting Provider: Юлия Roland Consult Reason/Comments: aneurysm Do you want consulting provider notified?: Yes Primary care physician: Bridget [facility] Course: This is an 82-year-old female one of Dr. Cruz with a previous medical history significant for hypertension and hypertensive cardiovascular disease, also history of thyroid disease, patient was not feeling right yesterday and she was brought into the emergency department at [facility] by her daughter after she fell and she was not feeling right patient was also complaining of slurred speech according to her daughter, she was seen in emergency department and she stated that she is having some minimal coughing and white phlegm production she denies any chest pain at that time or any shortness breath she has no numbness or weakness she has no headache she did not feel any dizziness or lightheadedness she has no nausea or vomiting she has no chest pain patient was seen in the ER and she underwent CT angiography of the brain that showed 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 Her chest x-ray was reviewed and did not show any evidence of acute pulmonary disease. 01/13 patient is currently 2 person assist per nursing staff, no aspirative events, patient declined to quit smoking and is not ready. Mri brain to be done today without any premedication needed, Therapies consulted 01/14 MRI showed suabacute infarction involving the left side of the body of the corpus callosum. CTA showed minimal plaque at the carotid artery bifurcations and less than 25% stenosis at the origin of the internal carotid arteries. therapies have recommend [facility] subacute rehabilititation, patient is aware of this plan, patient complains of poor sleep sleeping at 3 am, patient drowsy during daytime .melatonin started, blood pressure medication adjusted to lisinopril 10 bid. 01/15: Patient denies any new complaints. Her breathing status is stable. She states she slept well last night after given melatonin. Plan for discharge to [facility] tomorrow. 01/16: Trace studies had shown triglycerides 63, cholesterol 191, LDL 116, HDL 62 , homocysteine 10.88. TSH was 5.190 and levothyroxine dose was increased. Also lisinopril was added and increased during her stay. Patient is currently stable and has had no events overnight. Blood pressure is stable at 133/69, afebrile, pulse ox 94% on room air. Patient will be discharged to [facility] today in stable condition Discharge diagnoses: 1. 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 CHRONIC bronchitis from smokers cough without evidence of pneumonia 3. History of hypertension. 4. Hyperlipidemia. 5. Hypothyroidism. 6. Tobacco use and dependence. 7. Debility Discharge plan: [facility] under the care of Dr. Blanc Impression and plan of care have been directed as dictated by the signing physician. Mariam Bear nurse practitioner acting as scribe for signing physician. Patient Condition at Discharge: Good Plan - Discharge Summary Discharge Rx Participant: No New Discharge Prescriptions: New Aspirin 325 mg PO DAILY tab Atorvastatin [Lipitor] 20 mg PO HS tab Azithromycin [Zithromax] 500 mg PO DAILY@2100 #3 tab Ipratropium-Albuterol Nebulize [Duoneb 0.5 mg-3 mg/3 ml Soln] 3 ml INHALATION RT-Q8H PRN ampul.neb PRN Reason: shortness of breath Lisinopril [Zestril] 10 mg PO BID tab Melatonin 6 mg PO HS tablet Meloxicam [Mobic] 7.5 mg PO DAILY tab Levothyroxine Sodium [Synthroid] 50 mcg PO DAILY@0630 tab Discontinued Levothyroxine Sodium [Synthroid] 25 mcg PO DAILY Ibuprofen [Advil] 200 mg PO Q8HR PRN PRN Reason: Pain Discharge Medication List Aspirin 325 mg PO DAILY tab 01/16/18 [Rx] Atorvastatin [Lipitor] 20 mg PO HS tab 01/16/18 [Rx] Azithromycin [Zithromax] 500 mg PO DAILY@2100 #3 tab 01/16/18 [Rx] Ipratropium-Albuterol Nebulize [Duoneb 0.5 mg-3 mg/3 ml Soln] 3 ml INHALATION RT -Q8H PRN ampul.neb 01/16/18 [Rx] Levothyroxine Sodium [Synthroid] 50 mcg PO DAILY@0630 tab 01/16/18 [Rx] Lisinopril [Zestril] 10 mg PO BID tab 01/16/18 [Rx] Melatonin 6 mg PO HS tablet 01/16/18 [Rx] Meloxicam [Mobic] 7.5 mg PO DAILY tab 01/16/18 [Rx] Follow up Appointment(s)/Referral(s): Bridget Cruz MD [Primary Care Provider] - 1 Week (After discharge from [facility]CF) Юлия Roland MD [STAFF PHYSICIAN] - 3 Weeks Discharge Disposition: TRANSFER TO SNF/ECF
== END 2018-01-16 11:37 | DRG 65 ==
LOC: EC 19:05 → 6SEL 01-12 00:03 → OBSVTOIN 01-13 11:23 → 5MS5E 01-14 12:33
PROVIDERS: ADMIT Internal Medicine; ATTEND Internal Medicine
DX: I63.9 Cerebral infarction, unspecified (principal); G81.94 Hemiplegia, unspecified affecting left nondominant side; I67.1 Cerebral aneurysm, nonruptured; E03.9 Hypothyroidism, unspecified; E78.5 Hyperlipidemia, unspecified; F17.210 Nicotine dependence, cigarettes, uncomplicated; I11.9 Hypertensive heart disease without heart failure; J44.9 Chronic obstructive pulmonary disease, unspecified; K21.9 Gastro-esophageal reflux disease without esophagitis; Z80.0 Family history of malignant neoplasm of digestive organs; Z87.01 Personal history of pneumonia (recurrent); Z88.0 Allergy status to penicillin; Z79.1 Long term (current) use of non-steroidal anti-inflammatories (NSAID); Z79.890 Hormone replacement therapy; Z71.6 Tobacco abuse counseling; R29.701 NIHSS score 1; R53.81 Other malaise
CPT/HCPCS: 36415; 70450; 70496; 70498; 70551; 71046; 80053; 80061; 81003; 82550; 82553; 83090; 84439; 84443; 84484; 85025; 85610; 85730; 87040; 87077; 87086; 87186; 93005; 94640; 94760; 95819; 96361; 96365; 96367; 99285

== ENCOUNTER 2018-02-08 17:00 | Emergency (ER) | payer MEDICARE, BC ==
[2018-02-08 17:09] VITALS: TEMP 98.3
[2018-02-08] MEDS ORDERED: SODIUM CHLORIDE 0.9% 500 ML 500 ML IV STA (17:27)
--- NOTE | 2018-02-08 17:38 | ED ---
General Adult HPI - General Chief complaint: Fall Stated complaint: fall Time Seen by Provider: 02/08/18 17:00 Source: patient, family, RN notes reviewed Mode of arrival: wheelchair Limitations: no limitations - History of Present Illness Initial comments: This is an 82-year-old female presents emergency department with family. He shouldn't last night lost her balance while using her walker and fell and comes in complaining some anterior chest wall pain. Patient states it hurts to palpate. It hurts take a deep breath. Patient states she did hit her head on the door jam but does not complain of any headache now does not complain of any numbness or weakness. Patient denies any neck pain. Patient is not a great historian nor is the . Patient denies any shortness of breath. Patient denies any upper extremity injury or pain patient denies any lower extremity injury pain. Patient denies any back pain or belly pain. - Related Data Previous Rx's Medication Instructions Recorded Aspirin 325 mg PO DAILY tab 01/16/18 Atorvastatin [Lipitor] 20 mg PO HS tab 01/16/18 Ipratropium-Albuterol Nebulize 3 ml INHALATION RT-Q8H PRN 01/16/18 [Duoneb 0.5 mg-3 mg/3 ml Soln] ampul.neb Levothyroxine Sodium [Synthroid] 50 mcg PO DAILY@0630 tab 01/16/18 Lisinopril [Zestril] 10 mg PO BID tab 01/16/18 Melatonin 6 mg PO HS tablet 01/16/18 Allergies Allergy/AdvReac Type Severity Reaction Status Date / Time Penicillins Allergy Rash/Hives Verified 02/08/18 17:29 Review of Systems ROS Statement: Those systems with pertinent positive or pertinent negative responses have been documented in the HPI. ROS Other: All systems not noted in ROS Statement are negative. Past Medical History Past Medical History: Hyperlipidemia, Hypertension, Thyroid Disorder Additional Past Medical History / Comment(s): per pm[facility] thyroid nodules, falls, compression fx to l1 and l3 in 2013 History of Any Multi-Drug Resistant Organisms: None Reported Past Surgical History: Appendectomy Additional Past Surgical History / Comment(s): colonoscopy Past Anesthesia/Blood Transfusion Reactions: No Reported Reaction Past Psychological History: No Psychological Hx Reported Smoking Status: Current every day smoker Past Alcohol Use History: None Reported Past Drug Use History: None Reported - Past Family History Father Family Medical History: Unable to Obtain Mother Family Medical History: Unable to Obtain Sister(s) Family Medical History: Cancer (patient had 3 sisters one of them from cancer developed to 100 polio and the other one no issues.) Daughter(s) Family Medical History: No Reported History (patient has one daughter no major medical problems.) Son(s) Family Medical History: No Reported History (patient has one son no major medical problems.) General Exam - General Exam Comments Initial Comments: GENERAL: Patient is well-developed and well-nourished. Patient is nontoxic and well- hydrated and is in mild distress. ENT: Neck is soft and supple. No significant lymphadenopathy is noted. Oropharynx is clear. Moist mucous membranes. Neck has full range of motion without eliciting any pain. EYES: The sclera were anicteric and conjunctiva were pink and moist. Extraocular movements were intact and pupils were equal round and reactive to light. Eyelids were unremarkable. PULMONARY: Unlabored respirations. Good breath sounds bilaterally. No audible rales rhonchi or wheezing was noted. CARDIOVASCULAR: There is a regular rate and rhythm without any murmurs gallops or rubs. Patient has tenderness to the anterior chest wall on palpation. ABDOMEN: Soft and nontender with normal bowel sounds. No palpable organomegaly was noted. There is no palpable pulsatile mass. SKIN: Skin is clear with no lesions or rashes and otherwise unremarkable. NEUROLOGIC: Patient is alert and oriented x3. Cranial nerves II through XII are grossly intact. Motor and sensory are also intact. Normal speech, volume and content. Symmetrical smile. MUSCULOSKELETAL: Normal extremities with adequate strength and full range of motion. No lower extremity swelling or edema. No calf tenderness. LYMPHATICS: No significant lymphadenopathy is noted PSYCHIATRIC: Normal psychiatric evaluation. Limitations: no limitations Course Vital Signs 02/08/18 17:07 Temperature 98.3 F Pulse Rate 77 Respiratory 20 Rate Blood Pressure 166/88 O2 Sat by Pulse 96 Oximetry Medical Decision Making - Medical Decision Making EKG shows normal sinus rhythm at [address] interval 178 QRSs 84 QT interval 420 QTC is 462. Patient's EKG shows no ST segment elevation or depression or T wave abnormalities are noted Chest x-ray showed no acute abnormality. CT of the brain and C-spine showed no acute abnormality. - Lab Data Result diagrams: 02/08/18 17:40 18 17:40 Lab Results 02/08/18 02/08/18 02/08/18 Range/Units 17:40 17:40 17:40 WBC 7.7 (3.8-10.6) k/uL RBC 4.46 (3.80-5.40) m/uL Hgb 13.8 (11.4-16.0) gm/dL Hct 42.6 (34.0-46.0) % MCV 95.5 (80.0-100.0) fL MCH 30.9 (25.0-35.0) pg MCHC 32.4 (31.0-37.0) g/dL RDW 13.3 (11.5-15.5) % Plt Count 232 (150-450) k/uL Neutrophils % 74 % Lymphocytes % 15 % Monocytes % 9 % Eosinophils % 1 % Basophils % 0 % Neutrophils # 5.7 (1.3-7.7) k/uL Lymphocytes # 1.1 (1.0-4.8) k/uL Monocytes # 0.7 (0-1.0) k/uL Eosinophils # 0.1 (0-0.7) k/uL Basophils # 0.0 (0-0.2) k/uL PT (9.0-12.0) sec INR (<1.2) APTT (22.0-30.0) sec Sodium 139 (137-145) mmol/L Potassium 3.8 (3.5-5.1) mmol/L Chloride 104 (98-107) mmol/L Carbon Dioxide 27 (22-30) mmol/L Anion Gap 8 mmol/L BUN 18 H (7-17) mg/dL Creatinine 0.49 L (0.52-1.04) mg/dL Est GFR (CKD-EPI)AfAm >90 (>60 ml/min/1.73 sqM) Est GFR (CKD-EPI)NonAf >90 (>60 ml/min/1.73 sqM) Glucose 111 H (74-99) mg/dL Calcium 9.1 (8.4-10.2) mg/dL Magnesium 2.1 (1.6-2.3) mg/dL Total Bilirubin 0.8 (0.2-1.3) mg/dL AST 30 (14-36) U/L ALT 18 (9-52) U/L Alkaline Phosphatase 106 (38-126) U/L Total Creatine Kinase 49 (30-135) U/L CK-MB (CK-2) 0.5 (0.0-2.4) ng/mL CK-MB (CK-2) Rel Index 1.0 Troponin I <0.012 (0.000-0.034) ng/mL Total Protein 7.1 (6.3-8.2) g/dL Albumin 4.1 (3.5-5.0) g/dL 02/08/18 Range/Units 17:40 WBC (3.8-10.6) k/uL RBC (3.80-5.40) m/uL Hgb (11.4-16.0) gm/dL Hct (34.0-46.0) % MCV (80.0-100.0) fL MCH (25.0-35.0) pg MCHC (31.0-37.0) g/dL RDW (11.5-15.5) % Plt Count (150-450) k/uL Neutrophils % % Lymphocytes % % Monocytes % % Eosinophils % % Basophils % % Neutrophils # (1.3-7.7) k/uL Lymphocytes # (1.0-4.8) k/uL Monocytes # (0-1.0) k/uL Eosinophils # (0-0.7) k/uL Basophils # (0-0.2) k/uL PT 9.6 (9.0-12.0) sec INR 1.0 (<1.2) APTT 20.9 L (22.0-30.0) sec Sodium (137-145) mmol/L Potassium (3.5-5.1) mmol/L Chloride (98-107) mmol/L Carbon Dioxide (22-30) mmol/L Anion Gap mmol/L BUN (7-17) mg/dL Creatinine (0.52-1.04) mg/dL Est GFR (CKD-EPI)AfAm (>60 ml/min/1.73 sqM) Est GFR (CKD-EPI)NonAf (>60 ml/min/1.73 sqM) Glucose (74-99) mg/dL Calcium (8.4-10.2) mg/dL Magnesium (1.6-2.3) mg/dL Total Bilirubin (0.2-1.3) mg/dL AST (14-36) U/L ALT (9-52) U/L Alkaline Phosphatase (38-126) U/L Total Creatine Kinase (30-135) U/L CK-MB (CK-2) (0.0-2.4) ng/mL CK-MB (CK-2) Rel Index Troponin I (0.000-0.034) ng/mL Total Protein (6.3-8.2) g/dL Albumin (3.5-5.0) g/dL Disposition Clinical Impression: Fall, Chest wall contusion Disposition: HOME SELF-CARE Instructions: Contusion in Adults (ED) Is patient prescribed a controlled substance at d/c from ED?: No Referrals: Bridget Cruz MD [Primary Care Provider] - 1-2 days Time of Disposition: 19:25
[2018-02-08 17:54] LABS: Basophils % (A) 0 %; Eosinophils # (A) 0.1 k/uL (0-0.7); Eosinophils % (A) 1 %; HCT 42.6 % (34.0-46.0); HGB 13.8 gm/dL (11.4-16.0); Lymphocytes # (A) 1.1 k/uL (1.0-4.8); Lymphocytes % (A) 15 %; MCH 30.9 pg (25.0-35.0); MCHC 32.4 g/dL (31.0-37.0); MCV 95.5 fL (80.0-100.0); Mean Platelet Volume 7.1; Monocytes # (A) 0.7 k/uL (0-1.0); Monocytes % (A) 9 %; Neutrophils # (A) 5.7 k/uL (1.3-7.7); Neutrophils % (A) 74 %; Platelet Count 232 k/uL (150-450); RBC 4.46 m/uL (3.80-5.40); RDW 13.3 % (11.5-15.5); WBC 7.7 k/uL (3.8-10.6)
[2018-02-08 18:09] LABS: Prothrombin Time 9.6 sec (9.0-12.0)
[2018-02-08 18:10] LABS: Partial Thromboplastin Time 20.9 sec (22.0-30.0)
[2018-02-08 18:17] LABS: ALT 18 U/L (9-52); AST 30 U/L (14-36); Albumin 4.1 g/dL (3.5-5.0); Alkaline Phosphatase 106 U/L (38-126); Anion Gap 8 mmol/L; Blood Urea Nitrogen 18 mg/dL (7-17); Calcium 9.1 mg/dL (8.4-10.2); Carbon Dioxide 27 mmol/L (22-30); Chloride 104 mmol/L (98-107); Creatine Kinase 49 U/L (30-135); Glucose 111 mg/dL (74-99); Magnesium 2.1 mg/dL (1.6-2.3); Potassium 3.8 mmol/L (3.5-5.1); Sodium 139 mmol/L (137-145); Total Bilirubin 0.8 mg/dL (0.2-1.3); Total Protein 7.1 g/dL (6.3-8.2)
[2018-02-08 18:29] LABS: Creatine Kinase MB 0.5 ng/mL (0.0-2.4); Troponin I <0.012 ng/mL (0.000-0.034)
--- NOTE | 2018-02-08 18:45 | CT ---
EXAMINATION TYPE: CT brain michael newton con DATE OF EXAM: 02/08/2018 COMPARISON: 01/11/[address] scan HISTORY: head pain after fall injury CT DLP: 864.7 mGycm Automated exposure control for dose reduction was used. TECHNIQUE: CT scan of the head and cervical spine are performed without contrast. FINDINGS: There is some cerebral cortical atrophy. There is moderate patchy hypodensity in the joan ventricular white matter. The calvarium is intact. There is mucosal thickening in the sphenoid and et hmoid sinuses. Cervical vertebra have normal alignment. There is degenerative disc space From C4 to C6. There is spurring of the endplates. Posterior elements are intact. The skull base appe ars intact. There is no evidence of cervical spine fracture. There are fibrotic changes at the lung a pices. There is some pulmonary emphysema. IMPRESSION: Cerebral atrophy and extensive chronic small vessel ischemia. No acute intracranial abnormality. Mult iples scattered lacunar infarcts. Spondylotic changes in the lower cervical spine. No fracture. Brain appears stable compared to old exam. Stable sinusitis.
--- NOTE | 2018-02-08 18:57 | XR ---
EXAMINATION TYPE: XR chest 2V DATE OF EXAM: 02/08/2018 COMPARISON: 01/13/2018 HISTORY: Chest pain TECHNIQUE: Frontal and lateral views of the chest are obtained. FINDINGS: There is no heart failure nor confluent pneumonic infiltrate. Costophrenic angles are jud r. Thoracic aorta is atheromatous. IMPRESSION: No active cardiopulmonary disease. Normal heart. There is old L1-L2 compression fracture s.
[2018-02-08 19:25] VITALS: BP 160/101; PULSE 75; RESP 16
== END 2018-02-08 19:54 | disposition home or self-care (01) ==
LOC: EC 17:00
DX: S20.219A Contusion of unspecified front wall of thorax, initial encounter (principal); F17.200 Nicotine dependence, unspecified, uncomplicated; Z88.0 Allergy status to penicillin; W19.XXXA Unspecified fall, initial encounter; Y92.009 Unspecified place in unspecified non-institutional (private) residence as the place of occurrence of the external cause
CPT/HCPCS: 36415; 70450; 71046; 72125; 80053; 82550; 82553; 83735; 84484; 85025; 85610; 85730; 93005; 96360; 99284

== ENCOUNTER 2018-03-30 14:21 | Emergency (ER) | payer MEDICARE, BC ==
[2018-03-30 14:34] VITALS: PULSE 81; RESP 20
[2018-03-30] MEDS ORDERED: SODIUM CHLORIDE 0.9% 1,000 ML IV STA (14:34)
--- NOTE | 2018-03-30 14:37 | ED ---
Weakness HPI - General Chief complaint: Weakness Stated complaint: increased weakness Time Seen by Provider: 03/30/18 14:25 Source: EMS, RN notes reviewed, old records reviewed Mode of arrival: EMS Limitations: altered mental status - History of Present Illness Initial comments: This is an 83-year-old female the ER for evaluation presented for evaluation of left-sided facial droop. No headache or pain. Patient is currently without significant complaint. No nausea vomiting diarrhea no recent illness. Patient sent in by family member brought in by EMS, patient is a mildly poor strain history. From EMS and patient's chart is patient had an episode of unresponsiveness today, then family thought that they might of had some more left-sided facial droop than normal she does have baseline left-sided droop MD Complaint: generalized weakness, focal weakness (Left facial droop) -: days(s) (1 last seen normal one day ago) Severity: mild Severity scale (1-10): 2 Consistency: constant, now resolved Improves with: none Worsens with: none Context: other (no pain) Associated Symptoms: denies other symptoms - Related Data Home Medications Medication Instructions Recorded Confirmed Lisinopril [Zestril] 10 mg PO DAILY 03/30/18 03/30/18 Previous Rx's Medication Instructions Recorded Atorvastatin [Lipitor] 20 mg PO HS tab 01/16/18 Levothyroxine Sodium [Synthroid] 50 mcg PO DAILY@0630 tab 01/16/18 Allergies Allergy/AdvReac Type Severity Reaction Status Date / Time Penicillins Allergy Rash/Hives Verified 02/08/18 17:29 Review of Systems ROS Statement: Those systems with pertinent positive or pertinent negative responses have been documented in the HPI. ROS Other: All systems not noted in ROS Statement are negative. Past Medical History Past Medical History: CVA/TIA, Hyperlipidemia, Hypertension, Thyroid Disorder Additional Past Medical History / Comment(s): per [facility] thyroid nodules, falls, compression fx to l1 and l3 in 2013 History of Any Multi-Drug Resistant Organisms: None Reported Past Surgical History: Appendectomy Additional Past Surgical History / Comment(s): colonoscopy Past Anesthesia/Blood Transfusion Reactions: No Reported Reaction Past Psychological History: No Psychological Hx Reported Smoking Status: Current every day smoker Past Alcohol Use History: None Reported Past Drug Use History: None Reported - Past Family History Father Family Medical History: Unable to Obtain Mother Family Medical History: Unable to Obtain Sister(s) Family Medical History: Cancer (patient had 3 sisters one of them from cancer developed to 100 polio and the other one no issues.) Daughter(s) Family Medical History: No Reported History (patient has one daughter no major medical problems.) Son(s) Family Medical History: No Reported History (patient has one son no major medical problems.) General Exam - General Exam Comments Initial Comments: No facial droop appreciated Limitations: altered mental status General appearance: alert, in no apparent distress Head exam: Present: atraumatic, normocephalic, normal inspection Eye exam: Present: normal appearance, PERRL, EOMI. Absent: scleral icterus, conjunctival injection, periorbital swelling ENT exam: Present: normal exam, mucous membranes moist Neck exam: Present: normal inspection. Absent: tenderness, meningismus, lymphadenopathy Respiratory exam: Present: normal lung sounds bilaterally. Absent: respiratory distress, wheezes, rales, rhonchi, stridor Cardiovascular Exam: Present: regular rate, normal rhythm, normal heart sounds. Absent: systolic murmur, diastolic murmur, rubs, gallop, clicks GI/Abdominal exam: Present: soft, normal bowel sounds. Absent: distended, tenderness, guarding, rebound, rigid Extremities exam: Present: normal inspection, full ROM, normal capillary refill. Absent: tenderness, pedal edema, joint swelling, calf tenderness Back exam: Present: normal inspection Neurological exam: Present: alert, oriented X3, CN II-XII intact Psychiatric exam: Present: normal affect, normal mood Skin exam: Present: warm, dry, intact, normal color. Absent: rash Course Vital Signs 03/30/18 14:29 Temperature 98.7 F Pulse Rate 81 Respiratory 20 Rate Blood Pressure 165/93 O2 Sat by Pulse 96 Oximetry - Reevaluation(s) Reevaluation #1: 03/30/18 17:49 Medical record is reviewed Reevaluation #2: 03/30/18 17:49 Family at bedside, patient feeling improved, normal. EKG Findings - EKG Comments: EKG Findings:: EKG shows sinus rhythm rate of 76, NM 162, QRS 86, QTc 483 Medical Decision Making - Medical Decision Making 83 female to ER with syncopal event left-sided facial droop, droop is improved, patient is not and has not been sick in the ER acting appropriately, states she wants to be discharged home. Family is at bedside stating patient is at baseline - Lab Data Result diagrams: 03/30/18 14:35 03/30/18 14:35 Lab Results 03/30/18 03/30/18 03/30/18 Range/Units 14:35 14:35 14:35 WBC 6.2 (3.8-10.6) k/uL RBC 4.55 (3.80-5.40) m/uL Hgb 13.9 (11.4-16.0) gm/dL Hct 43.2 (34.0-46.0) % MCV 95.1 (80.0-100.0) fL MCH 30.6 (25.0-35.0) pg MCHC 32.1 (31.0-37.0) g/dL RDW 13.3 (11.5-15.5) % Plt Count 268 (150-450) k/uL Neutrophils % 76 % Lymphocytes % 14 % Monocytes % 6 % Eosinophils % 4 % Basophils % 0 % Neutrophils # 4.7 (1.3-7.7) k/uL Lymphocytes # 0.9 L (1.0-4.8) k/uL Monocytes # 0.4 (0-1.0) k/uL Eosinophils # 0.2 (0-0.7) k/uL Basophils # 0.0 (0-0.2) k/uL PT (9.0-12.0) sec INR (<1.2) APTT (22.0-30.0) sec Sodium 138 (137-145) mmol/L Potassium 4.7 (3.5-5.1) mmol/L Chloride 105 (98-107) mmol/L Carbon Dioxide 26 (22-30) mmol/L Anion Gap 7 mmol/L BUN 15 (7-17) mg/dL Creatinine 0.50 L (0.52-1.04) mg/dL Est GFR (CKD-EPI)AfAm >90 (>60 ml/min/1.73 sqM) Est GFR (CKD-EPI)NonAf >90 (>60 ml/min/1.73 sqM) Glucose 89 (74-99) mg/dL Calcium 8.6 (8.4-10.2) mg/dL Total Bilirubin 1.1 (0.2-1.3) mg/dL AST 27 (14-36) U/L ALT 17 (9-52) U/L Alkaline Phosphatase 79 (38-126) U/L Total Creatine Kinase 50 (30-135) U/L CK-MB (CK-2) <0.2 (0.0-2.4) ng/mL CK-MB (CK-2) Rel Index Troponin I <0.012 (0.000-0.034) ng/mL Total Protein 6.6 (6.3-8.2) g/dL Albumin 3.7 (3.5-5.0) g/dL 03/30/18 Range/Units 14:35 WBC (3.8-10.6) k/uL RBC (3.80-5.40) m/uL Hgb (11.4-16.0) gm/dL Hct (34.0-46.0) % MCV (80.0-100.0) fL MCH (25.0-35.0) pg MCHC (31.0-37.0) g/dL RDW (11.5-15.5) % Plt Count (150-450) k/uL Neutrophils % % Lymphocytes % % Monocytes % % Eosinophils % % Basophils % % Neutrophils # (1.3-7.7) k/uL Lymphocytes # (1.0-4.8) k/uL Monocytes # (0-1.0) k/uL Eosinophils # (0-0.7) k/uL Basophils # (0-0.2) k/uL PT 10.1 (9.0-12.0) sec INR 0.9 (<1.2) APTT 25.3 (22.0-30.0) sec Sodium (137-145) mmol/L Potassium (3.5-5.1) mmol/L Chloride (98-107) mmol/L Carbon Dioxide (22-30) mmol/L Anion Gap mmol/L BUN (7-17) mg/dL Creatinine (0.52-1.04) mg/dL Est GFR (CKD-EPI)AfAm (>60 ml/min/1.73 sqM) Est GFR (CKD-EPI)NonAf (>60 ml/min/1.73 sqM) Glucose (74-99) mg/dL Calcium (8.4-10.2) mg/dL Total Bilirubin (0.2-1.3) mg/dL AST (14-36) U/L ALT (9-52) U/L Alkaline Phosphatase (38-126) U/L Total Creatine Kinase (30-135) U/L CK-MB (CK-2) (0.0-2.4) ng/mL CK-MB (CK-2) Rel Index Troponin I (0.000-0.034) ng/mL Total Protein (6.3-8.2) g/dL Albumin (3.5-5.0) g/dL - Radiology Data Radiology results: report reviewed (CT brain CTA had not shows a few aneurysmal changes, no change from prior), image reviewed Disposition Clinical Impression: Altered mental status, TIA (transient ischemic attack) Disposition: HOME SELF-CARE Condition: Fair Instructions: Transient Ischemic Attack (ED) Is patient prescribed a controlled substance at d/c from ED?: No Referrals: Bridget Cruz MD [Primary Care Provider] - 1-2 days
[2018-03-30 14:56] LABS: Basophils % (A) 0 %; Eosinophils # (A) 0.2 k/uL (0-0.7); Eosinophils % (A) 4 %; HCT 43.2 % (34.0-46.0); HGB 13.9 gm/dL (11.4-16.0); Lymphocytes # (A) 0.9 k/uL (1.0-4.8); Lymphocytes % (A) 14 %; MCH 30.6 pg (25.0-35.0); MCHC 32.1 g/dL (31.0-37.0); MCV 95.1 fL (80.0-100.0); Mean Platelet Volume 7.1; Monocytes # (A) 0.4 k/uL (0-1.0); Monocytes % (A) 6 %; Neutrophils # (A) 4.7 k/uL (1.3-7.7); Neutrophils % (A) 76 %; Platelet Count 268 k/uL (150-450); RBC 4.55 m/uL (3.80-5.40); RDW 13.3 % (11.5-15.5); WBC 6.2 k/uL (3.8-10.6)
[2018-03-30 15:04] LABS: ALT 17 U/L (9-52); AST 27 U/L (14-36); Albumin 3.7 g/dL (3.5-5.0); Alkaline Phosphatase 79 U/L (38-126); Anion Gap 7 mmol/L; Blood Urea Nitrogen 15 mg/dL (7-17); Calcium 8.6 mg/dL (8.4-10.2); Carbon Dioxide 26 mmol/L (22-30); Chloride 105 mmol/L (98-107); Glucose 89 mg/dL (74-99); Potassium 4.7 mmol/L (3.5-5.1); Sodium 138 mmol/L (137-145); Total Bilirubin 1.1 mg/dL (0.2-1.3); Total Protein 6.6 g/dL (6.3-8.2)
[2018-03-30 15:07] LABS: INR 0.9 (<1.2); Partial Thromboplastin Time 25.3 sec (22.0-30.0); Prothrombin Time 10.1 sec (9.0-12.0)
[2018-03-30 15:26] LABS: Creatine Kinase 50 U/L (30-135)
[2018-03-30 15:39] LABS: Creatine Kinase MB <0.2 ng/mL (0.0-2.4); Troponin I <0.012 ng/mL (0.000-0.034)
--- NOTE | 2018-03-30 15:57 | XR ---
EXAMINATION TYPE: XR chest 2V DATE OF EXAM: 03/30/2018 COMPARISON: 02/08/2018 INDICATION: Altered mental status increased left-sided weakness TECHNIQUE: Frontal and lateral views of the chest are obtained. FINDINGS: The heart size is normal. The pulmonary vasculature is prominent. Some mild right lower lobe infiltrate may be developing. Correlate for atelectasis. Developing pneumo danielito could be considered.. IMPRESSION: 1. Developing right lower lobe infiltrate. Correlate for atelectasis or developing pneumonia.
--- NOTE | 2018-03-30 16:16 | CT ---
EXAMINATION TYPE: CT brain wo con for TPA DATE OF EXAM: 03/30/2018 COMPARISON: 02/08/2018 INDICATION: Neuro deficits, weakness DLP: 975.3 mGycm, Automated exposure control for dose reduction was used. CONTRAST: None CT of the brain is performed utilizing 3 mm thick sections through the posterior fossa and 3 mm thick sections through the remaining calvarium. Study is performed within 24 hours of arrival to the hosp ital. No abnormal hyperdensity is present to suggest an acute intracranial hemorrhage. No mass lesion is evident. No acute infarcts are evident. There are confluent periventricular white matter hypodensities, likely on the basis of chronic white matter ischemic change. This is stable from comparison. Old lacunar infarct is likely within the left basal ganglion. Virchow-James's space versus old lacuna r infarct is within the inferior lateral right basal ganglion. There appears to be collapse of an old small lacunar infarct within the right caudate head. These were present previously in January 2018. Distal basilar artery appears prominent. Vascular calcifications in the distal vertebral arteries. Th e right vertebral artery appears dominant. Distal internal carotid artery calcification is also noted . Some dolichoectasia may be present. Ventricles and sulci are appropriate for the patient age. Paranasal sinuses and mastoid air cells within the [id number] are clear. IMPRESSIONS: 1. Atrophy with periventricular white matter ischemic changes. 2. Old lacunar infarcts within the bilateral basal ganglion. Old small lacunar infarct within the rig ht caudate head present. 3. Dolichoectasia of the basilar artery.
--- NOTE | 2018-03-30 17:07 | CT ---
EXAMINATION TYPE: CT angio head neck DATE OF EXAM: 03/30/2018 HISTORY: weakness COMPARISON: 01/11/2018 CT DLP: 286.4 mGycm. Automated Exposure Control for Dose Reduction was Utilized. TECHNIQUE: CTA scan of the neck is performed with IV Contrast, patient injected with 65 mL of Isovue 370, axial images are obtained, coronal and sagittal reformatted images are reviewed. Three-D recons tructed images are created on an independent workstation and reviewed. FINDINGS: Carotid/Vascular Structures: No significant flow-limiting stenosis within the carotid vessels. Psychology Associate al carotid arteries appear normal in caliber. The carotid artery on the right thalamus a lateral cour se. The right vertebral artery is dominant. Other: [place] of Cm: The basilar tip is prominent at 0.6 cm. Some dilatation or dolichoectasia ma y be present. Posterior communicating arteries are patent. Anterior communicating artery is patent. 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 Series 501 image 74. IMPRESSION: 1. No significant flow-limiting stenosis bilateral carotid bifurcations. Some atheromatous plaquing a nd calcification is present. 2. Dominant right vertebral artery. 3. Suspected dolichoectasia with prominence of the distal basilar artery on axial images measuring 0. 6 cm. This appears less suspicious on the reconstructed coronal plane images. 4. 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 Discrepancy with the previous exam may be related to patient positioni ng within the gantry. Some enlargement is not excluded, although this is felt to be more projectional . Previous measurement 0.5 x 0.7 cm. 5. Report was called to emergency room by Dr. Simms by telephone at time of interpretation.
[2018-03-30 17:59] VITALS: BP 142/84; TEMP 98.1
== END 2018-03-30 18:20 | disposition home or self-care (01) ==
LOC: EC 14:21
DX: G45.9 Transient cerebral ischemic attack, unspecified (principal); I10 Essential (primary) hypertension; F17.200 Nicotine dependence, unspecified, uncomplicated; Z86.73 Personal history of transient ischemic attack (TIA), and cerebral infarction without residual deficits; Z79.899 Other long term (current) drug therapy; Z88.0 Allergy status to penicillin
CPT/HCPCS: 36415; 93005; 80053; 82550; 82553; 84484; 85025; 85610; 85730; 71046; 70496; 70450; 70498; 99285; 96360; Q9967

== ENCOUNTER 2018-04-21 22:04 | Emergency (ER) | payer MEDICARE, BC ==
[2018-04-21] MEDS ORDERED: SODIUM CHLORIDE 0.9% 1,000 ML IV STA (22:17)
[2018-04-21] MEDS ORDERED: RX INFO: IV CONTRAST WAS GIVEN 1 EACH MISC MISCELLANE PRN (22:18)
--- NOTE | 2018-04-21 22:22 | ED ---
General Adult HPI - General Stated complaint: Coughing up blood Time Seen by Provider: 04/21/18 22:07 - History of Present Illness Initial comments: Natasha is an 83-year-old cigarette smoker who presents to the emergency department today via EMS for evaluation of hemoptysis. Upon arrival patient is irritated that she has here, she begrudgingly answers questions with short yes or no answers. History is provided primarily by EMS and the patient's son who arrived at bedside. Per the patient's son she noted earlier in the day that his mom had some dried blood on her mouth, he is uncertain where he came from but then he noticed she was coughing and seemed to be coughing up scant amount of blood. She didn't seem distressed by this and was in no acute distress so he did not pursue any evaluation however this evening when she went to bed he could hear coughing when he went to check on her he noted that she was smoking a cigarette but seemed to be coughing up blood. At that time he decided he didn't feel safe leaving her unattended and decided to call EMS for further evaluation. Patient does have a primary care physician but doesn't follow up very closely. She doesn't have any formal diagnosis of COPD or chronic bronchitis that she is a current every day smoker and has been for most of her life. Son reports she's pretty resistant to seeing doctors are getting medical care. Patient reports she feels lousy, she states that she always feels lousy, she states that she doesn't want to be here she doesn't feel like she needs to be here and she has no complaints. She does admit to coughing up blood for couple hours today she denies chest pain or shortness of breath. - Related Data Home Medications Medication Instructions Recorded Confirmed Lisinopril [Zestril] 10 mg PO DAILY 03/30/18 04/21/18 Previous Rx's Medication Instructions Recorded Atorvastatin [Lipitor] 20 mg PO HS tab 01/16/18 Levothyroxine Sodium [Synthroid] 50 mcg PO DAILY@0630 tab 01/16/18 Allergies Allergy/AdvReac Type Severity Reaction Status Date / Time Penicillins Allergy Rash/Hives Verified 04/21/18 22:59 Review of Systems ROS Statement: Those systems with pertinent positive or pertinent negative responses have been documented in the HPI. ROS Other: All systems not noted in ROS Statement are negative. Past Medical History Past Medical History: CVA/TIA, Hyperlipidemia, Hypertension, Thyroid Disorder Additional Past Medical History / Comment(s): per [facility] thyroid nodules, falls, compression fx to l1 and l3 in 2013 History of Any Multi-Drug Resistant Organisms: None Reported Past Surgical History: Appendectomy Additional Past Surgical History / Comment(s): colonoscopy Past Anesthesia/Blood Transfusion Reactions: No Reported Reaction Past Psychological History: No Psychological Hx Reported Smoking Status: Current every day smoker Past Alcohol Use History: None Reported Past Drug Use History: None Reported - Past Family History Father Family Medical History: Unable to Obtain Mother Family Medical History: Unable to Obtain Sister(s) Family Medical History: Cancer (patient had 3 sisters one of them from cancer developed to 100 polio and the other one no issues.) Daughter(s) Family Medical History: No Reported History (patient has one daughter no major medical problems.) Son(s) Family Medical History: No Reported History (patient has one son no major medical problems.) General Exam - General Exam Comments Initial Comments: Physical Exam GENERAL: Elderly, chronically ill-appearing female HENT: Normocephalic, Atraumatic. dry blood in oropharynx EYES: PERRL, EOMI No conjunctival pallor PULMONARY: Unlabored respirations. No audible rales rhonchi or wheezing was noted. CARDIOVASCULAR: There is a regular rate and rhythm without any murmurs gallops or rubs. ABDOMEN: Soft and nontender with normal bowel sounds. SKIN: Skin is clear with no lesions or rashes and otherwise unremarkable. Skin changes on bilateral hands consistent with cigarette smoking : Deferred NEUROLOGIC: Patient is alert and oriented x3. Moving all extremities spontaneously MUSCULOSKELETAL: Normal extremities with adequate strength and full range of motion. No lower extremity swelling or edema. No calf tenderness. PSYCHIATRIC: Agitated, resists physical exam Limitations: no limitations Course Vital Signs 04/21/18 04/21/18 04/21/18 22:06 22:22 22:56 Temperature 98.0 F Pulse Rate 91 78 Respiratory 18 16 Rate Blood Pressure 175/130 157/93 O2 Sat by Pulse 96 97 Oximetry 04/22/18 03:28 Temperature 97.9 F Pulse Rate 73 Respiratory 16 Rate Blood Pressure 155/78 O2 Sat by Pulse 97 Oximetry EKG Findings - EKG Comments: EKG Findings:: EKG obtained at 10:13 PM, rate is 89, rhythm is sinus, there is normal axis, normal intervals come up here 190, QRS 84, QTC 459. No acute ST elevations or depressions no evidence of acute ischemia or infarction. Medical Decision Making - Medical Decision Making The patient was seen and evaluated history was obtained from EMS, patient and patient's son Patient is an every day smoker for chronic cough who now has hemoptysis Patient hemodynamically stable X-ray and computed tomography scan ordered Straight with no acute pathology, labs unremarkable no evidence of coagulopathy or anemia Computed tomography scan reveals no acute pathology no obvious masses Patient has not had any hemoptysis while in the emergency department. Options were discussed with the patient and her son at bedside patient was offered observation considering her advanced age and current hemoptysis however patient prefer to be discharged home. Son is comfortable with this. All questions pertaining to care were answered return parameters were discussed referral to pulmonology was provided the patient was discharged home in stable condition. - Lab Data Result diagrams: 04/21/18 22:49 04/21/18 22:49 Lab Results 04/21/18 04/21/18 04/21/18 Range/Units 22:49 22:49 22:49 WBC 6.1 (3.8-10.6) k/uL RBC 4.05 (3.80-5.40) m/uL Hgb 12.5 (11.4-16.0) gm/dL Hct 39.1 (34.0-46.0) % MCV 96.3 (80.0-100.0) fL MCH 30.9 (25.0-35.0) pg MCHC 32.0 (31.0-37.0) g/dL RDW 13.6 (11.5-15.5) % Plt Count 250 (150-450) k/uL Neutrophils % 67 % Lymphocytes % 22 % Monocytes % 7 % Eosinophils % 2 % Basophils % 1 % Neutrophils # 4.1 (1.3-7.7) k/uL Lymphocytes # 1.3 (1.0-4.8) k/uL Monocytes # 0.4 (0-1.0) k/uL Eosinophils # 0.1 (0-0.7) k/uL Basophils # 0.0 (0-0.2) k/uL PT (9.0-12.0) sec INR (<1.2) APTT (22.0-30.0) sec Sodium 140 (137-145) mmol/L Potassium 4.1 (3.5-5.1) mmol/L Chloride 106 (98-107) mmol/L Carbon Dioxide 27 (22-30) mmol/L Anion Gap 7 mmol/L BUN 18 H (7-17) mg/dL Creatinine 0.50 L (0.52-1.04) mg/dL Est GFR (CKD-EPI)AfAm >90 (>60 ml/min/1.73 sqM) Est GFR (CKD-EPI)NonAf >90 (>60 ml/min/1.73 sqM) Glucose 103 H (74-99) mg/dL Calcium 9.0 (8.4-10.2) mg/dL Total Bilirubin 0.5 (0.2-1.3) mg/dL AST 49 H (14-36) U/L ALT 69 H (9-52) U/L Alkaline Phosphatase 89 (38-126) U/L Total Creatine Kinase 38 (30-135) U/L CK-MB (CK-2) 0.4 (0.0-2.4) ng/mL CK-MB (CK-2) Rel Index 1.1 Troponin I <0.012 (0.000-0.034) ng/mL Total Protein 6.7 (6.3-8.2) g/dL Albumin 3.8 (3.5-5.0) g/dL 04/21/18 Range/Units 22:49 WBC (3.8-10.6) k/uL RBC (3.80-5.40) m/uL Hgb (11.4-16.0) gm/dL Hct (34.0-46.0) % MCV (80.0-100.0) fL MCH (25.0-35.0) pg MCHC (31.0-37.0) g/dL RDW (11.5-15.5) % Plt Count (150-450) k/uL Neutrophils % % Lymphocytes % % Monocytes % % Eosinophils % % Basophils % % Neutrophils # (1.3-7.7) k/uL Lymphocytes # (1.0-4.8) k/uL Monocytes # (0-1.0) k/uL Eosinophils # (0-0.7) k/uL Basophils # (0-0.2) k/uL PT 9.8 (9.0-12.0) sec INR 0.9 (<1.2) APTT 21.4 L (22.0-30.0) sec Sodium (137-145) mmol/L Potassium (3.5-5.1) mmol/L Chloride (98-107) mmol/L Carbon Dioxide (22-30) mmol/L Anion Gap mmol/L BUN (7-17) mg/dL Creatinine (0.52-1.04) mg/dL Est GFR (CKD-EPI)AfAm (>60 ml/min/1.73 sqM) Est GFR (CKD-EPI)NonAf (>60 ml/min/1.73 sqM) Glucose (74-99) mg/dL Calcium (8.4-10.2) mg/dL Total Bilirubin (0.2-1.3) mg/dL AST (14-36) U/L ALT (9-52) U/L Alkaline Phosphatase (38-126) U/L Total Creatine Kinase (30-135) U/L CK-MB (CK-2) (0.0-2.4) ng/mL CK-MB (CK-2) Rel Index Troponin I (0.000-0.034) ng/mL Total Protein (6.3-8.2) g/dL Albumin (3.5-5.0) g/dL Disposition Clinical Impression: Cough with hemoptysis Disposition: HOME SELF-CARE Instructions: Bronchiolitis (ED) Is patient prescribed a controlled substance at d/c from ED?: No Referrals: Bridget Cruz MD [Primary Care Provider] - 1-2 days Mehrdad Fung MD [STAFF PHYSICIAN] - 1-2 days
[2018-04-21 22:57] VITALS: RESP 16
[2018-04-21 23:17] LABS: Basophils % (A) 1 %; Eosinophils # (A) 0.1 k/uL (0-0.7); Eosinophils % (A) 2 %; HCT 39.1 % (34.0-46.0); HGB 12.5 gm/dL (11.4-16.0); Lymphocytes # (A) 1.3 k/uL (1.0-4.8); Lymphocytes % (A) 22 %; MCH 30.9 pg (25.0-35.0); MCV 96.3 fL (80.0-100.0); Mean Platelet Volume 7.5; Monocytes # (A) 0.4 k/uL (0-1.0); Monocytes % (A) 7 %; Neutrophils # (A) 4.1 k/uL (1.3-7.7); Neutrophils % (A) 67 %; Platelet Count 250 k/uL (150-450); RBC 4.05 m/uL (3.80-5.40); RDW 13.6 % (11.5-15.5); WBC 6.1 k/uL (3.8-10.6)
[2018-04-21 23:22] LABS: INR 0.9 (<1.2); Prothrombin Time 9.8 sec (9.0-12.0)
[2018-04-21 23:25] LABS: ALT 69 U/L (9-52); AST 49 U/L (14-36); Albumin 3.8 g/dL (3.5-5.0); Alkaline Phosphatase 89 U/L (38-126); Anion Gap 7 mmol/L; Blood Urea Nitrogen 18 mg/dL (7-17); Carbon Dioxide 27 mmol/L (22-30); Chloride 106 mmol/L (98-107); Glucose 103 mg/dL (74-99); Potassium 4.1 mmol/L (3.5-5.1); Sodium 140 mmol/L (137-145); Total Bilirubin 0.5 mg/dL (0.2-1.3); Total Protein 6.7 g/dL (6.3-8.2)
[2018-04-21 23:29] LABS: Partial Thromboplastin Time 21.4 sec (22.0-30.0)
[2018-04-21 23:34] LABS: Creatine Kinase 38 U/L (30-135)
[2018-04-21 23:46] LABS: Creatine Kinase MB 0.4 ng/mL (0.0-2.4); Troponin I <0.012 ng/mL (0.000-0.034)
--- NOTE | 2018-04-21 23:47 | XR ---
EXAMINATION TYPE: XR chest 2V DATE OF EXAM: 04/21/2018 COMPARISON: 03/30/2018 HISTORY: Difficulty breathing TECHNIQUE: Frontal and lateral views of the chest are obtained. FINDINGS: There is no heart failure nor confluent pneumonic infiltrate. Costophrenic angles are jud r. Thoracic aorta is atheromatous. There are chest leads. There is coarsening of interstitial marking s consistent with mild fibrosis. IMPRESSION: No active cardiopulmonary disease. Atheromatous aorta. Inspiration improved compared to last exam.
--- NOTE | 2018-04-22 00:21 | CT ---
EXAMINATION TYPE: CT chest w con DATE OF EXAM: 04/22/2018 COMPARISON: 12/12/2011 HISTORY: vomiting blood CT DLP: 219.30 mGycm Automated exposure control for dose reduction was used. CONTRAST: CT scan of the chest is performed with IV Contrast, patient injected with 100 mL of Isovue 300. FINDINGS: There is mild pleural thickening at the lung apices posteriorly. Heart size is normal. There is no pe ricardial effusion. There is no pleural effusion or pneumothorax. There is coarsening of interstitial pulmonary markings. There is no mediastinal adenopathy. There are no hilar masses. There is normal contrast opacification of the pulmonary arteries. There are no filling defects. There is hiatal hernia. Thoracic aorta is a theromatous. Ascending aorta measures 3.3 cm. There is no evidence of dissection or aneurysm.. IMPRESSION: Mild pulmonary fibrotic changes. No evidence of pulmonary embolism. No evidence of a pul monary mass. No significant change compared to old exam.
[2018-04-22 03:29] VITALS: BP 155/78; PULSE 73; TEMP 97.9
== END 2018-04-22 02:50 | disposition home or self-care (01) ==
LOC: EC 22:04
DX: R04.2 Hemoptysis (principal); I10 Essential (primary) hypertension; F17.200 Nicotine dependence, unspecified, uncomplicated; Z86.73 Personal history of transient ischemic attack (TIA), and cerebral infarction without residual deficits; Z79.899 Other long term (current) drug therapy; Z88.0 Allergy status to penicillin
CPT/HCPCS: 36415; 93005; 80053; 82550; 82553; 84484; 85025; 85610; 85730; 71046; 71260; 99285; 96360; 96361 ×3; Q9967

== ENCOUNTER 2018-05-19 12:51 | Inpatient (IN) | payer MEDICARE, BC ==
--- NOTE | 2018-05-19 21:24 | XR ---
EXAMINATION TYPE: XR Hip Limited LT DATE OF EXAM: 05/19/2018 COMPARISON: The today HISTORY: 83-year-old female with fall and pain TECHNIQUE: Single frontal view FINDINGS: Mild degenerative change of the left hip. Mildly impacted, nondisplaced transcervical femoral neck fr acture redemonstrated. IMPRESSION: Mildly impacted, nondisplaced, transcervical femoral neck fracture.
--- NOTE | 2018-05-19 21:30 | XR ---
EXAMINATION TYPE: AP view pelvis. 2 views left femur. DATE OF EXAM: 05/19/2018 Comparison: None Clinical History: 83-year-old female with pain Findings: Pelvis: Diffuse osteopenia. There is mild degenerative change of both hips. Suboptimal assessment of the femo ral necks due to external rotation of the hips and obscuration from the greater trochanters. However, there appears to be step-off along the mid left femoral neck. Left femur: No knee joint effusion. Degenerative joint space narrowing medial compartment of the knee. Impression: Pelvis and left femur: Suboptimal assessment due to external rotation of the hips obscuring most of t he femoral neck regions. However, findings are highly suspicious for a nondisplaced left transcervica l femoral neck fracture. Underlying mild degenerative changes at both hips.
--- NOTE | 2018-05-19 21:40 | CT ---
EXAMINATION TYPE: CT head and cervical spine without DATE OF EXAM: 05/19/2018 COMPARISON: CT brain 03/30/2018 HISTORY: 83-year-old female with frequent falls and pain CT DLP: 1260.9 mGycm Automated exposure control for dose reduction was used. Technique: Examination of the head was done in axial plane without intravenous contrast. Coronal and sagittal reconstructions performed. CT of the cervical spine was obtained in axial plane without intravenous injection of contrast mater ial. Coronal and sagittal reformatted images were obtained from the axial views for evaluation of f ractures, spinal alignment and canal. FINDINGS: Head: There is no evidence of acute intracranial hemorrhage, acute ischemic changes, mass, mass-effect, or extra-axial fluid collection. There is no effacement of cerebral sulci or basal subarachnoid cister ns. There is no midline shift. Oconnor-white matter distinction is preserved. Mild to moderate generalized supratentorial volume loss. Secondary mild ventriculomegaly from central cerebral atrophy. Bilateral basal ganglionic lacunar infarcts redemonstrated. 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 Metastatic calcifications in the bilateral carotid siphons. Moderate confluent white matter hypodensities in both cerebral hemispheres unchanged. Moderate mucosal thickening posterior ethmoid air cells and left sphenoid sinus. Additional polyp or mucosal retention cyst right sphenoid sinus. Mastoid air cells are well pneumatized. Orbits and globe s are intact. Cervical spine: No craniocervical junction abnormality, predental space widening, or prevertebral soft tissue swellin g. Degenerative changes at the C1 dens articulation. Preserved alignment of the cervical spine with straightening of the normal cervical lordosis. Moderat e disc/endplate degenerative change especially in the mid cervical spine. Multilevel facet and uncove rtebral joint arthropathy is present. No acute fracture. Disc osteophyte complex at C5-C6 mildly narrows the spinal canal. At C4-C5, moderate left and [id number]-[id number] right neuroforaminal stenosis. At C5-C6, moderate to severe right and mild to moderate left neuroforaminal stenosis. COPD changes in the visualized upper lungs with biapical pleural-parenchymal scarring. Sagittal and coronal reformatted images confirm above findings. COMBINED IMPRESSION: 1. No acute intracranial abnormality seen. 2. Similar ywnw-he-nvullhvs atrophy. Secondary mild ex vacuo ventriculomegaly. Moderate confluent johnie nges of chronic small vessel ischemic disease with old bilateral basal ganglionic lacunar infarcts. 3. No acute fracture or malalignment of cervical spine. Moderate spondylotic changes above.
[2018-05-19] MEDS ORDERED: ceFAZolin IN SWFI 2 GM/20 ML SYRINGE IVP ONE (22:00)
[2018-05-20] MEDS ORDERED: MORPHINE SULFATE 2 MG/ML SYRINGE IVP PRN (00:09)
[2018-05-20] MEDS ORDERED: ONDANSETRON 4 MG/2 ML VIAL IVP PRN (00:12)
[2018-05-20] MEDS: LISINOPRIL 10 MG TAB PO SCH ×2 (01:33→07:39)
[2018-05-20 04:14] LABS: ALT 28 U/L (9-52); AST 26 U/L (14-36); Albumin 4.2 g/dL (3.5-5.0); Alkaline Phosphatase 90 U/L (38-126); Anion Gap 8 mmol/L; Blood Urea Nitrogen 22 mg/dL (7-17); Calcium 9.3 mg/dL (8.4-10.2); Carbon Dioxide 28 mmol/L (22-30); Chloride 105 mmol/L (98-107); Glucose 90 mg/dL (74-99); Magnesium 2.2 mg/dL (1.6-2.3); Potassium 4.2 mmol/L (3.5-5.1); Sodium 141 mmol/L (137-145); Total Bilirubin 1.1 mg/dL (0.2-1.3); Total Protein 7.1 g/dL (6.3-8.2)
[2018-05-20 05:42] LABS: Basophils % (A) 0 %; Eosinophils % (A) 0 %; HCT 40.8 % (34.0-46.0); HGB 13.3 gm/dL (11.4-16.0); Lymphocytes # (A) 0.6 k/uL (1.0-4.8); Lymphocytes % (A) 7 %; MCH 31.5 pg (25.0-35.0); MCHC 32.5 g/dL (31.0-37.0); Mean Platelet Volume 7.1; Monocytes # (A) 0.6 k/uL (0-1.0); Monocytes % (A) 6 %; Neutrophils % (A) 85 %; Platelet Count 268 k/uL (150-450); RDW 13.3 % (11.5-15.5); WBC 9.4 k/uL (3.8-10.6)
[2018-05-20] MEDS: SODIUM CHLORIDE 0.9% 1,000 ML IV SCH (05:51)
[2018-05-20] MEDS: LEVOTHYROXINE 50 MCG TAB PO SCH (05:51)
[2018-05-20 06:57] VITALS: BMI 21.9
--- NOTE | 2018-05-20 09:23 | P.HPOR ---
History of Present Illness H&P Date: 05/20/18 Chief Complaint: Fall; Left hip pain Mrs. Banuelos is a pleasant 83-year-old female who had a ground-level fall on . She states she slipped on the tile floor in her bathroom and fell. She experienced immediate left hip pain and was unable to ambulate. She was brought to the emergency department where x-rays were obtained which revealed a fracture of her left hip. She denies any other injuries associated with this fall but does note some generalized soreness throughout her body. The pain is localized left hip and minimal at rest. She states she's had previous falls but they did not result in any significant injuries. She states she quit smoking a few weeks ago. Past medical history is significant for previous CVA. She denies residual weakness or neurological deficits. She normally ambulates with the assistance of a walker. She lives at home with her . Review of Systems REVIEW OF SYSTEMS: General: Denies fever, chills or recent illness HEENT: Denies vision or hearing changes Cardiovascular: Denies chest pain or palpitations Pulmonary: Denies difficulty in breathing Gastrointestinal: Denies nausea, vomiting or abdominal pain Genitourinary: Denies dysuria or hematuria Musculoskeletal: Reports pain in the left hip Hematology: Denies history of blood clots, easy bleeding or bruising. Endocrine: History of hypothyroidism Neurologic: Denies numbness, tingling or decreased sensation Past Medical History Past Medical History: CVA/TIA, Hyperlipidemia, Hypertension, Thyroid Disorder Additional Past Medical History / Comment(s): per [facility] thyroid nodules, falls, compression fx to l1 and l3 in 2013 History of Any Multi-Drug Resistant Organisms: None Reported Past Surgical History: Appendectomy Additional Past Surgical History / Comment(s): colonoscopy Past Anesthesia/Blood Transfusion Reactions: No Reported Reaction Past Psychological History: No Psychological Hx Reported Smoking Status: Former smoker Past Alcohol Use History: None Reported Additional Past Alcohol Use History / Comment(s): started smoking at age 17 smokes 1ppd Past Drug Use History: None Reported - Past Family History Father Family Medical History: Unable to Obtain Mother Family Medical History: Unable to Obtain Sister(s) Family Medical History: Cancer Daughter(s) Family Medical History: No Reported History Son(s) Family Medical History: No Reported History Medications and Allergies Home Medications Medication Instructions Recorded Confirmed Type Atorvastatin [Lipitor] 20 mg PO HS tab 01/16/18 05/20/18 Rx Levothyroxine Sodium [Synthroid] 50 mcg PO DAILY@0630 tab 01/16/18 05/20/18 Rx Lisinopril [Zestril] 10 mg PO DAILY 03/30/18 05/20/18 History Allergies Allergy/AdvReac Type Severity Reaction Status Date / Time Penicillins Allergy Rash/Hives Verified 04/21/18 22:59 Physical Examination Constitution: Normal stature and development; appears stated age HEENT: Normocephalic & atraumatic Cardiovascular: Regular rate & rhythm Pulmonary: Unlabored respiratory effort without audible wheeze or conversational dyspnea Abdomen: Soft, nontender & nondistended Integumentary: No rashes or skin lesions noted in the examined areas Psychiatric: Alert & oriented to person, place, time and purpose. Patient interacts appropriately but appears somewhat somnolent and mildly confused. Musculoskeletal: The left lower extremity rests in a shortened and externally rotated position. Positive tenderness to palpation over the greater trochanter. No visible ulcerations, abrasions or ecchymosis around the hip. Patient demonstrate pain with logroll. Pelvis is stable to AP and lateral compression. No gross deformities or malalignment in the leg or thigh. No tenderness to palpation. Calf is soft and nontender. Gross motor function is intact to the tibialis anterior and gastroc-soleus complex. Light touch sensation is subjectively intact throughout the lower extremity and symmetric to the contralateral side. Foot is warm dry and well perfused. Secondary survey reveals no tenderness to palpation or visible deformity in the contralateral leg or bilateral upper extremities. Results X-rays of the pelvis & left hip were reviewed and interpreted from an orthopedic standpoint. These demonstrate a mildly displaced subcapital left femoral neck fracture. There is a visible step-off at the superior head-neck junction on both the AP & lateral views. Mild lateral spurring is seen at the roof of the acetabulum. No other fractures or acute osseous pathology is appreciated. - Labs Labs: Abnormal Lab Results - Last 24 Hours (Table) 05/19/18 05/19/18 Range/Units 14:07 14:07 Neutrophils # 8.0 H (1.3-7.7) k/uL Lymphocytes # 0.6 L (1.0-4.8) k/uL BUN 22 H (7-17) mg/dL H & H 05/19/18 Range/Units 14:07 Hgb 13.3 (11.4-16.0) gm/dL Hct 40.8 (34.0-46.0) % Result Diagrams: 05/19/18 14:07 05/19/18 14:07 Assessment and Plan (1) Left displaced femoral neck fracture Current Visit: Yes Status: Acute Code(s): S72.002A - FRACTURE OF UNSP PART OF NECK OF LEFT FEMUR, INIT SNOMED Code(s): 6367352 Plan: I discussed the diagnosis and radiographic findings with the patient. We reviewed the pertinent anatomy and pathophysiology of the injury. We discussed treatment options and I explained the rationale behind surgical intervention. I recommended operative treatment in the form of a hemiarthroplasty. We discussed the surgical plan. Risks and benefits were reviewed including (but not limited to) the risks of infection, bleeding, blood clots, dislocation and possible need for additional surgery. Questions were invited and answered. Patient expressed understanding and wishes to proceed with surgery. Patient will be kept on bedrest. Continue pain management. We will plan for surgery after preoperative evaluation by the internal medicine team. Thank you for allowing me to participate in the care of this patient. Dustin Martinez D.O. [facility]
[2018-05-20 10:33] LABS: Basophils % (A) 0 %; Eosinophils # (A) 0.1 k/uL (0-0.7); Eosinophils % (A) 1 %; HCT 43.5 % (34.0-46.0); HGB 13.3 gm/dL (11.4-16.0); Lymphocytes # (A) 0.8 k/uL (1.0-4.8); Lymphocytes % (A) 10 %; MCH 29.7 pg (25.0-35.0); MCHC 30.5 g/dL (31.0-37.0); MCV 97.4 fL (80.0-100.0); Mean Platelet Volume 6.6; Monocytes # (A) 0.5 k/uL (0-1.0); Monocytes % (A) 7 %; Neutrophils # (A) 6.2 k/uL (1.3-7.7); Neutrophils % (A) 80 %; Platelet Count 216 k/uL (150-450); RBC 4.46 m/uL (3.80-5.40); WBC 7.7 k/uL (3.8-10.6)
[2018-05-20 10:44] LABS: Anion Gap 11 mmol/L; Blood Urea Nitrogen 19 mg/dL (7-17); Calcium 8.9 mg/dL (8.4-10.2); Carbon Dioxide 24 mmol/L (22-30); Chloride 104 mmol/L (98-107); Glucose 76 mg/dL (74-99); Potassium 4.1 mmol/L (3.5-5.1); Sodium 139 mmol/L (137-145)
--- NOTE | 2018-05-20 11:38 | P.CONS ---
History of Present Illness - Reason for Consult Consult date: 05/20/18 Medical management of hypertension and other medical problems - Chief Complaint Status post fall - History of Present Illness Patient is a 83-year-old female with a known history of hypertension, hyperlipidemia, hypothyroidism, previous history of smoking quit 4 weeks ago and also history of CVA/TIA in the past without residual weakness was brought to the hospital status post fall in the bathroom. Patient is that she slipped and fell in the bathroom. Denied any hitting her head. Patient was complaining of left hip pain since then and family brought her to the hospital. Denied any complains of chest pain. Denied any dizziness or lightheadedness. No nausea vomiting. No history of seizures in the past. Patient is ambulatory at home with a walker by herself without any support currently. She lives at home with her . X-ray of the left hip showed mildly impacted nondisplaced transcervical femoral neck fracture X-ray the pelvis showed suboptimal assessment due to external rotation of the hips obscuring most of the femoral neck regions. However findings are highly suspicious for a nondisplaced left transcervical femoral neck fracture. Underlying mild degenerative changes at both hips. CT head and cervical spine showed no acute intracranial abnormality seen. Similar mild to moderate atrophy. Secondary mild ex vacuo ventriculomegaly. Moderate confluent changes of chronic small was an ischemic changes with the world of bilateral basilar ganglia lacunar infarcts. No acute fracture or malalignment of the cervical spine. Moderate spondylitic changes. Review of Systems Constitutional: Patient denies any fever or chills . No generalized weakness or weight loss. Abdomen: Patient denied nausea vomiting and diarrhea and abdominal pain. Cardiovascular: Patient denies any chest pain or short of breath no palpitations. Respiratory: patient denied any cough is from production. No shortness of breath Neurologic: Patient denied any numbness or tingling headache. Musculoskeletal: Left hip pain and unable to move. Skin: Negative Psychiatric: Negative Endocrine: No heat or cold intolerance. No recent weight gain. Genitourinary: No dysuria or hematuria. All other 14 point ROS negative except the above Past Medical History Past Medical History: CVA/TIA, Hyperlipidemia, Hypertension, Thyroid Disorder Additional Past Medical History / Comment(s): per [facility] thyroid nodules, falls, compression fx to l1 and l3 in 2013 History of Any Multi-Drug Resistant Organisms: None Reported Past Surgical History: Appendectomy Additional Past Surgical History / Comment(s): colonoscopy Past Anesthesia/Blood Transfusion Reactions: No Reported Reaction Past Psychological History: No Psychological Hx Reported Smoking Status: Former smoker Past Alcohol Use History: None Reported Additional Past Alcohol Use History / Comment(s): started smoking at age 17 smokes 1ppd Past Drug Use History: None Reported - Past Family History Father Family Medical History: Unable to Obtain Mother Family Medical History: Unable to Obtain Sister(s) Family Medical History: Cancer Daughter(s) Family Medical History: No Reported History Son(s) Family Medical History: No Reported History Medications and Allergies Home Medications Medication Instructions Recorded Confirmed Type Atorvastatin [Lipitor] 20 mg PO HS tab 01/16/18 05/20/18 Rx Levothyroxine Sodium [Synthroid] 50 mcg PO DAILY@0630 tab 01/16/18 05/20/18 Rx Lisinopril [Zestril] 10 mg PO DAILY 03/30/18 05/20/18 History Allergies Allergy/AdvReac Type Severity Reaction Status Date / Time Penicillins Allergy Rash/Hives Verified 05/20/18 09:29 Physical Exam Vitals: Vital Signs Temp Pulse Resp BP Pulse Ox 05/20/18 06:00 98.6 F 76 20 160/79 94 L 05/19/18 23:00 99.7 F H 80 22 178/93 93 L Intake and Output 05/19/18 05/20/18 05/20/18 22:59 06:59 14:59 Intake Total 0 Balance 0 Intake: Oral 0 Other: # Voids 1 Weight 63.503 kg PHYSICAL EXAMINATION: Patient is lying in the bed comfortably, no acute distress, awake alert and oriented.. HEENT: Normocephalic. Neck is supple. Pupils reactive. Nostrils clear. Oral cavity is moist. Ears reveal no drainage. Neck reveals no JVD, carotid bruits, or thyromegaly. CHEST EXAMINATION: Trachea is central. Symmetrical expansion. Bibasilar diminished air entry. Lung cheung clear to auscultation and percussion. CARDIAC: Normal S1, S2 with no gallops. No murmurs ABDOMEN: Soft. Bowel sounds normal. No organomegaly. No abdominal bruits. Extremities: reveal no edema. No clubbing or cyanosis Neurologically awake, alert, oriented x3 with well-coordinated movements. Patient does have mild dysarthria from previous CVA. Skin: No rash or skin lesions. Psychiatric: Coperative. Nonsuicidal Musculoskeletal: Left hip tenderness and external rotation of left lower extremity.. Results CBC & Chem 7: 05/20/18 09:54 05/20/18 09:54 Labs: Abnormal Lab Results - Last 24 Hours (Table) 05/19/18 05/19/18 05/20/18 Range/Units 14:07 14:07 09:54 MCHC 30.5 L (31.0-37.0) g/dL Neutrophils # 8.0 H (1.3-7.7) k/uL Lymphocytes # 0.6 L 0.8 L (1.0-4.8) k/uL BUN 22 H (7-17) mg/dL 05/20/18 Range/Units 09:54 MCHC (31.0-37.0) g/dL Neutrophils # (1.3-7.7) k/uL Lymphocytes # (1.0-4.8) k/uL BUN 19 H (7-17) mg/dL Assessment and Plan Assessment: Status post mechanical fall and left displaced femoral neck fracture Hypertension fairly controlled. Hyperlipidemia History of lacunar CVA with mild dysarthria Hypothyroidism History of smoking quit 4 weeks ago History of pneumonia and bronchitis December 2017 Previous history of falls History of compression fractures to L1 and L3 in 2013 DVT prophylaxis Plan: Patient will be continued on IV hydration and pain management. Patient currently denied any complaints of chest pain or shortness of breath. Patient does have COPD changes from chronic smoking but patient is able to ambulate at home without shortness of breath. Patient does have a history of CVA with lacunar infarcts. Renal function is stable. Currently denied any other complaints. Patient is moderately risk for moderate risk orthopedic surgery. We'll continue to follow patient with you after surgery. Discussed with the patient' s son at bedside in detail. Further recommendations based on the clinical course. Thank you for your consult. Time with Patient: Greater than 30
[2018-05-20] MEDS ORDERED: SODIUM CHLORIDE 0.9% 1,000 ML IV ONE ×3 (12:50→13:09)
[2018-05-20] MEDS ORDERED: CLINDAMYCIN 1,800 MG in SODIUM CHLORIDE 0.9% IRRIGATIO 3,000 ML IRRIGATION ONE (13:09)
[2018-05-20] MEDS ORDERED: KETAMINE 10 MG/ML 20 ML VIAL ONE (13:09)
[2018-05-20] MEDS ORDERED: MIDAZOLAM 2 MG/2 ML VIAL ONE (13:09)
[2018-05-20] MEDS ORDERED: PHENYLEPHRINE-0.9% NACL SYG 1 MG/10 ML SYRINGE ONE (13:09)
[2018-05-20] MEDS ORDERED: fentaNYL (PF) 50 MCG/ML 2 ML AMP ONE (13:09)
[2018-05-20] MEDS ORDERED: ePHEDrine SULFATE/0.9% NACL/PF 50 MG/5 ML SYRINGE IV ONE (13:09)
[2018-05-20] MEDS ORDERED: ceFAZolin 1,000 MG VIAL ONE (13:09)
[2018-05-20] MEDS ORDERED: LACTATED RINGERS 1,000 ML IV ONE ×2 (13:57→15:01)
[2018-05-20] MEDS ORDERED: BUPIVACAINE-EPI 0.5%-1:200,000 10 ML VIAL SQ ONE (15:18)
[2018-05-20] MEDS ORDERED: MAGNESIUM HYDROXIDE 2,400 MG/10 ML CUP PO PRN (15:23)
[2018-05-20] MEDS ORDERED: NALOXONE 0.4 MG/ML 1 ML VIAL IV PRN (15:23)
[2018-05-20] MEDS ORDERED: HYDROmorphone 0.5 MG/0.5 ML SYRINGE IVP PRN (15:23)
[2018-05-20] MEDS ORDERED: HYDROcodone/APAP 5-325MG 1 EACH TAB PO PRN (15:23)
[2018-05-20] MEDS: ceFAZolin IN SWFI 2 GM/20 ML SYRINGE IVP SCH (17:06)
[2018-05-20 17:09] LABS: Basophils % (A) 0 %; Eosinophils # (A) 0.1 k/uL (0-0.7); Eosinophils % (A) 1 %; HCT 39.8 % (34.0-46.0); HGB 12.7 gm/dL (11.4-16.0); Lymphocytes # (A) 0.6 k/uL (1.0-4.8); Lymphocytes % (A) 5 %; MCH 31.4 pg (25.0-35.0); MCHC 31.9 g/dL (31.0-37.0); MCV 98.4 fL (80.0-100.0); Mean Platelet Volume 7.2; Monocytes # (A) 0.8 k/uL (0-1.0); Monocytes % (A) 6 %; Neutrophils # (A) 10.4 k/uL (1.3-7.7); Neutrophils % (A) 87 %; Platelet Count 225 k/uL (150-450); RBC 4.05 m/uL (3.80-5.40); RDW 13.1 % (11.5-15.5)
--- NOTE | 2018-05-20 17:27 | XR ---
Limited left hip HISTORY: Postop Single frontal view of the left hip correlated to prior 05/19/2018 Patient is status post left hip arthroplasty. There is anatomic alignment. Lucency present in the sof t tissues. IMPRESSION: Orthopedic follow-up
--- NOTE | 2018-05-20 17:43 | P.OP ---
Date of Procedure: 05/20/18 Preoperative Diagnosis: Displaced left femoral neck fracture Postoperative Diagnosis: Displaced left femoral neck fracture Procedure(s) Performed: Left hip hemiarthroplasty Implants: Porter LDFX, size 13 stem, 45mm +0 head, cemented. Anesthesia: spinal Surgeon: Dustin Martinez Electrical Checkout Mechanic #1: Marck Grimes Estimated Blood Loss (ml): 150 Condition: stable Disposition: PACU Indications for Procedure: Patient is an 83 year old female who experienced a mechanical fall and injured her left hip. She was brought the emergency department where x-rays revealed a displaced left femoral neck fracture. Risks, benefits and alternatives have been reviewed with the patient and her family. Consents were signed and the operative extremity was marked. Description of Procedure: The patient was taken to the OR by the Anesthesia team and spinal anesthesia was administered. She was then placed in the right lateral decubitus position. She was well padded with axillary roll, lateral hip padding and lateral positioner was used. The left lower extremity was then prepped and draped in usual sterile fashion. Prophylactic antibiotics were administered. A timeout was performed which confirmed the patient, the operative side, site and procedure to be performed. All team members expressed agreement. A curvilinear incision was marked over the greater trochanter of the left hip. The skin was sharply incised. Electrocautery was used to dissect the subcutaneous tissue down to the tensor fascia, coagulating perforating vessels as needed. The fascia was sharply incised distally and gluteus ely was bluntly divided proximally. A Charnley retractor was placed and hip was gently internally rotated. The gluteus medius musculature was retracted proximally. The piriformis and short external rotators were identified. These were released from their insertions and tagged for later repair. A capsulotomy was made, taking care to protect the labrum. The fracture site was identified. A corkscrew extractor was inserted into the femoral head and the head was removed. A cutting guide was used to make a femoral neck osteotomy while the femoral head was being sized on the back table. We evaluated the diameter of the acetabulum and a 45 mm head was selected. We elevated the femoral neck and performed a box osteotomy. We lateralized, reamed and broached up to a size 13 stem with excellent fit. We then placed the appropriately positioned distal cement restrictor. Antibiotic cement was prepared while we irrigated, brushed and dried the femoral canal. We then inserted and cemented the femoral stem with appropriate anteversion. We allowed the cement to harden fully. We then trialed the hip again with both a 0 and +7 head. The 45 mm +0 head was selected. This was impacted onto a clean, dry trunnion and the hip was reduced. The hip showed good stability, range of motion and leg length. We then closed the capsule with #1 Vicryl suture after final deep irrigation. We reapproximated the piriformis and short external rotators with #5 Ethibond suture. We closed the tensor fascia with interrupted #1 Vicryl suture and a running, barbed suture. The subcutaneous tissues were closed in layers with 0 Vicryl & 2-0 Vicryl. The skin incision was closed with a running, barbed subcuticular stitch. Local anesthetic with epinephrine was injected into the joan-incisional subcutaneous tissues for postoperative pain control and hemostasis. A dermal adhesive and sterile dressing were applied. The patient tolerated the procedure well. She was transferred to her hospital bed and taken to recovery in stable condition. All sponge, needle and instrument counts were correct at the end of the case.
[2018-05-20] MEDS: ATORVASTATIN 20 MG TAB PO SCH (21:11)
[2018-05-20] MEDS: SENNOSIDES-DOCUSATE SODIUM 1 EACH TAB PO SCH (21:11)
[2018-05-21] MEDS: ceFAZolin IN SWFI 2 GM/20 ML SYRINGE IVP SCH (00:06)
[2018-05-21] MEDS: SODIUM CHLORIDE 0.9% 1,000 ML IV SCH ×2 (01:29→23:21)
[2018-05-21] MEDS: LEVOTHYROXINE 50 MCG TAB PO SCH (06:05)
[2018-05-21] MEDS: LISINOPRIL 10 MG TAB PO SCH (08:28)
[2018-05-21] MEDS: MULTIVITAMINS, THERA 1 EACH TAB PO SCH (08:28)
[2018-05-21] MEDS: ENOXAPARIN 40 MG/0.4 ML SYRINGE SQ SCH (08:28)
[2018-05-21 09:16] LABS: Basophils % (A) 0 %; Eosinophils % (A) 1 %; HCT 37.8 % (34.0-46.0); HGB 12.1 gm/dL (11.4-16.0); Lymphocytes # (A) 0.5 k/uL (1.0-4.8); Lymphocytes % (A) 5 %; MCH 30.8 pg (25.0-35.0); MCV 96.4 fL (80.0-100.0); Mean Platelet Volume 7.4; Monocytes # (A) 0.9 k/uL (0-1.0); Monocytes % (A) 10 %; Neutrophils # (A) 7.2 k/uL (1.3-7.7); Neutrophils % (A) 82 %; Platelet Count 177 k/uL (150-450); RBC 3.92 m/uL (3.80-5.40); RDW 13.1 % (11.5-15.5); WBC 8.8 k/uL (3.8-10.6)
--- NOTE | 2018-05-21 10:15 | P.PN ---
<Pamela Timmons - Last Filed: 05/21/18 12:33> Subjective Progress Note Date: 05/21/18 Principal diagnosis: Status post left hip hemiarthroplasty This is an 83 year-old female post left hip hemiarthroplasty This is post-op day 1. The patient was evaluated at the bedside today. The patient denies nausea, vomiting, abdominal pain, chest pain, or shortness of breath this morning. She states her pain is controlled at this time. The patient has not been up with physical therapy yet this morning. Objective - Vital Signs Vital signs: Vital Signs Temp 97.9 F 05/21/18 06:21 Pulse 84 05/21/18 06:21 Resp 18 05/21/18 08:00 BP 147/83 05/21/18 06:21 Pulse Ox 95 05/21/18 06:21 Intake & Output 05/20/18 05/21/18 05/21/18 18:59 06:59 18:59 Intake Total 2501 Output Total 280 500 Balance 2221 -500 Intake: IV 2501 Output: Urine 130 500 Estimated Blood Loss 150 Other: Voiding Method Indwelling Catheter Indwelling Catheter Indwelling Catheter # Voids 1 - Exam The patient does not appear in acute distress. Alert and orientated x1. Dressing is clean dry and intact. Incision appears fine with no erythema or active drainage. Calf is soft and nontender. Good foot and ankle motion without difficulty. Sensation and circulatory status is intact. - Labs CBC & Chem 7: 05/21/18 08:37 05/20/18 09:54 Labs: Abnormal Lab Results - Last 24 Hours (Table) 05/20/18 05/20/18 05/20/18 Range/Units 09:54 09:54 16:55 WBC 12.0 H (3.8-10.6) k/uL MCHC 30.5 L (31.0-37.0) g/dL Neutrophils # 10.4 H (1.3-7.7) k/uL Lymphocytes # 0.8 L 0.6 L (1.0-4.8) k/uL BUN 19 H (7-17) mg/dL 05/21/18 Range/Units 08:37 WBC (3.8-10.6) k/uL MCHC (31.0-37.0) g/dL Neutrophils # (1.3-7.7) k/uL Lymphocytes # 0.5 L (1.0-4.8) k/uL BUN (7-17) mg/dL Assessment and Plan (1) Status post hip hemiarthroplasty Current Visit: Yes Status: Acute Code(s): Z96.649 - PRESENCE OF UNSPECIFIED ARTIFICIAL HIP JOINT SNOMED Code(s): 932379612 (2) Fall Current Visit: Yes Status: Acute Code(s): W19.XXXA - UNSPECIFIED FALL, INITIAL ENCOUNTER SNOMED Code(s): 3465223 (3) Left displaced femoral neck fracture Current Visit: Yes Status: Acute Code(s): S72.002A - FRACTURE OF UNSP PART OF NECK OF LEFT FEMUR, INIT SNOMED Code(s): 1585963 Plan: 1. Continue pain control 2. Anticoagulation with Lovenox 3. Start physical therapy and ambulation today 4. Anticipate discharge to skilled rehab in the next couple of days <Dustin Martinez - Last Filed: 05/21/18 19:49> Objective - Vital Signs Vital signs: Vital Signs Temp 98.3 F 05/21/18 15:10 Pulse 74 05/21/18 15:10 Resp 18 05/21/18 16:00 BP 134/72 05/21/18 15:10 Pulse Ox 91 L 05/21/18 15:10 Intake & Output 05/21/18 05/21/18 05/22/18 06:59 18:59 06:59 Output Total 500 200 Balance -500 -200 Output: Urine 500 200 Other: Voiding Method Indwelling Catheter Indwelling Catheter - Labs CBC & Chem 7: 05/21/18 08:37 05/20/18 09:54 Labs: Abnormal Lab Results - Last 24 Hours (Table) 05/21/18 05/21/18 Range/Units 08:37 12:00 Lymphocytes # 0.5 L (1.0-4.8) k/uL Urine Protein Trace H (Negative) Urine Ketones 4+ H (Negative) Urine Blood Trace H (Negative) Urine Mucus Rare H (None) /hpf Assessment and Plan (1) Left displaced femoral neck fracture Current Visit: Yes Status: Acute Code(s): S72.002A - FRACTURE OF UNSP PART OF NECK OF LEFT FEMUR, INIT SNOMED Code(s): 3060557 Plan: Reviewed and agree with above. Patient was also seen and examined by me. S: Ms. Banuelos reports some pain but states it's tolerable. D/w RN and states patient denied need for pain medication. Pt appears somewhat confused but not anxious or agitated. She denies any specific issues or concerns. PE: Dressings clean and dry without shadowing. Appropriate TTP around incision. Abduction pillow in place. Leg lengths symmetric Intact light touch sensation distally. + gross motor with dorsiflexion/ plantarflexion Calf soft/NT. A: POD #1 s/p left hip hemiarthoplasty. P: Continue pain mgmt, PT and DVT prophylaxis as outlined above. If pt's mental status deteriorates and she is unable to observe posterior hip precautions, place knee immobilizer on operative leg. Discharge planning for CESAR Martinez D.O.
--- NOTE | 2018-05-21 11:29 | XR ---
EXAMINATION TYPE: XR chest 1V DATE OF EXAM: 05/21/2018 COMPARISON: 04/21/2018 HISTORY: 83-year-old female cough, fall, hip fracture TECHNIQUE: Single frontal view of the chest is obtained. FINDINGS: Heart is mildly enlarged. Left base underpenetrated and not well assessed. Suspect epicardial fat pad at the cardiac apex. Hyperinflation with diffuse interstitial prominence. Convex marginated line pro jecting across the right upper lobe suspected to represent a prominent skin fold is the density silvia nues beyond the thoracic cage. IMPRESSION: 1. COPD and chronic parenchymal changes. Left base underpenetrated and not well assessed. 2. Convexly marginated line projecting at the right upper lobe suspected to represent a prominent ski n fold. Attention on follow-up.
--- NOTE | 2018-05-21 12:09 | P.PN ---
Subjective History of present illness, from records Patient is a 83-year-old female with a known history of hypertension, hyperlipidemia, hypothyroidism, previous history of smoking quit 4 weeks ago and also history of CVA/TIA in the past without residual weakness was brought to the hospital status post fall in the bathroom. Patient is that she slipped and fell in the bathroom. Denied any hitting her head. Patient was complaining of left hip pain since then and family brought her to the hospital. Denied any complains of chest pain. Denied any dizziness or lightheadedness. No nausea vomiting. No history of seizures in the past. Patient is ambulatory at home with a walker by herself without any support currently. She lives at home with her . X-ray of the left hip showed mildly impacted nondisplaced transcervical femoral neck fracture X-ray the pelvis showed suboptimal assessment due to external rotation of the hips obscuring most of the femoral neck regions. However findings are highly suspicious for a nondisplaced left transcervical femoral neck fracture. Underlying mild degenerative changes at both hips. CT head and cervical spine showed no acute intracranial abnormality seen. Similar mild to moderate atrophy. Secondary mild ex vacuo ventriculomegaly. Moderate confluent changes of chronic small was an ischemic changes with the world of bilateral basilar ganglia lacunar infarcts. No acute fracture or malalignment of the cervical spine. Moderate spondylitic changes. Subjective 05/21/2018 Patient was seen and examined by me at bedside, she is lying in bed not in distress. She open eyes spontaneously and to verbal stimuli eyes, she states that her pain is controlled. She denies chest pain or dyspnea. The patient looks a little bit drowsy. Patient looks afebrile. Leukocytosis has resolved from 12 down to 8.8 KG. Hemoglobin stable. BMP from yesterday was unremarkable with creatinine 0.5 Objective - Vital Signs Vital signs: Vital Signs Temp 97.9 F 05/21/18 06:21 Pulse 84 05/21/18 06:21 Resp 18 05/21/18 08:00 BP 147/83 05/21/18 06:21 Pulse Ox 95 05/21/18 06:21 Intake & Output 05/20/18 05/21/18 05/21/18 18:59 06:59 18:59 Intake Total 2501 Output Total 280 500 Balance 2221 -500 Intake: IV 2501 Output: Urine 130 500 Estimated Blood Loss 150 Other: Voiding Method Indwelling Catheter Indwelling Catheter Indwelling Catheter # Voids 1 - Exam -GENERAL: The patient is alert and oriented however she exhibited drowsy., not in any acute distress. HEENT: Pupils are round and equally reacting to light. EOMI. No scleral icterus. No conjunctival pallor. Normocephalic, atraumatic. No pharyngeal erythema. No thyromegaly. CARDIOVASCULAR: S1 and S2 present. No murmurs, rubs, or gallops. PULMONARY: Chest is clear to auscultation, no wheezing or crackles. ABDOMEN: Soft, nontender, nondistended, normoactive bowel sounds. No palpable organomegaly. MUSCULOSKELETAL: No joint swelling or deformity. -EXTREMITIES: No cyanosis, clubbing, or pedal edema. Left hip wound is clean and closed NEUROLOGICAL: Gross neurological examination did not reveal any focal deficits. SKIN: No rashes. - Labs CBC & Chem 7: 05/21/18 08:37 05/20/18 09:54 Labs: Abnormal Lab Results - Last 24 Hours (Table) 05/20/18 05/21/18 Range/Units 16:55 08:37 WBC 12.0 H (3.8-10.6) k/uL Neutrophils # 10.4 H (1.3-7.7) k/uL Lymphocytes # 0.6 L 0.5 L (1.0-4.8) k/uL Assessment and Plan Assessment: Status post mechanical fall and left femoral neck fracture status post Left hip hemiarthroplasty Drowsiness, rule out infection versus others Hypertension fairly controlled. Hyperlipidemia History of lacunar CVA with mild dysarthria Hypothyroidism History of smoking quit 4 weeks ago History of pneumonia and bronchitis December 2017 Previous history of falls History of compression fractures to L1 and L3 in 2013 DVT prophylaxis Plan: Patient will be continued on IV hydration and pain management. Patient currently denied any complaints of chest pain or shortness of breath. Patient does have COPD changes from chronic smoking but patient is able to ambulate at home without shortness of breath. Patient does have a history of CVA with lacunar infarcts. Renal function is stable. Currently denied any other complaints. Patient was noticed limits drowsy, not sure if this is close to her baseline. However we'll do some workup to rule out infection. Labs from today showing improvement. We'll continue to follow patient with you Further recommendations based on the clinical course. DVT prophylaxis and pain management as per primary surgical team. Patient currently on Lovenox. Physical therapy evaluation: Pending Prognosis is guarded Thank you for consulting us, these feel free to contact us for any further question or clarification
[2018-05-21 12:28] LABS: Appearance,Urine Clear (Clear); Bilirubin,Urine Negative (Negative); Blood,Urine Trace (Negative); Color,Urine Yellow; Glucose,Urine (UA) Negative (Negative); Ketones,Urine 4+ (Negative); Leukocyte Esterase,Urine Negative (Negative); Mucus,Urine Rare /hpf; Nitrite,Urine Negative (Negative); PH, Urine 5.5 (5.0-8.0); Protein,Urine Trace (Negative); RBC,Urine 4 /hpf (0-5); Squamous Epithelial Cell,Urine <1 /hpf (0-4); Urobilinogen,Urine <2.0 mg/dL (<2.0); WBC,Urine 5 /hpf (0-5)
[2018-05-21] MEDS ORDERED: HYDROmorphone 2 MG TAB PO PRN (12:51)
[2018-05-21] MEDS: SENNOSIDES-DOCUSATE SODIUM 1 EACH TAB PO SCH (23:20)
[2018-05-21] MEDS: ATORVASTATIN 20 MG TAB PO SCH (23:20)
[2018-05-22] MEDS: LEVOTHYROXINE 50 MCG TAB PO SCH (06:50)
[2018-05-22] MEDS: LISINOPRIL 10 MG TAB PO SCH (08:39)
[2018-05-22] MEDS: ENOXAPARIN 40 MG/0.4 ML SYRINGE SQ SCH (08:39)
--- NOTE | 2018-05-22 08:55 | P.PN ---
<Pamela Timmons - Last Filed: 05/22/18 11:00> Subjective Progress Note Date: 05/22/18 Principal diagnosis: Status post left hip hemiarthroplasty This is an 83 year-old female post left hip hemiarthroplasty This is post-op day 2. The patient was evaluated at the bedside today. The patient denies nausea, vomiting, abdominal pain, chest pain, or shortness of breath this morning. She states her pain is controlled at this time. The patient has not been up with physical therapy yet this morning. Objective - Vital Signs Vital signs: Vital Signs Temp 98.2 F 05/22/18 07:45 Pulse 87 05/22/18 07:45 Resp 18 05/22/18 07:45 BP 125/75 05/22/18 07:45 Pulse Ox 94 L 05/22/18 07:45 Intake & Output 05/21/18 05/22/18 05/22/18 18:59 06:59 18:59 Output Total 200 100 Balance -200 -100 Output: Urine 200 100 Other: Voiding Method Indwelling Catheter Indwelling Catheter # Voids 150 - Exam The patient does not appear in acute distress. Alert and orientated x1. Dressing is clean dry and intact. Incision appears fine with no erythema or active drainage. Calf is soft and nontender. Good foot and ankle motion without difficulty. Sensation and circulatory status is intact. - Labs CBC & Chem 7: 05/21/18 08:37 05/20/18 09:54 Labs: Abnormal Lab Results - Last 24 Hours (Table) 05/21/18 05/21/18 Range/Units 08:37 12:00 Lymphocytes # 0.5 L (1.0-4.8) k/uL Urine Protein Trace H (Negative) Urine Ketones 4+ H (Negative) Urine Blood Trace H (Negative) Urine Mucus Rare H (None) /hpf Assessment and Plan (1) Status post hip hemiarthroplasty Current Visit: Yes Status: Acute Code(s): Z96.649 - PRESENCE OF UNSPECIFIED ARTIFICIAL HIP JOINT SNOMED Code(s): 172579951 (2) Fall Current Visit: Yes Status: Acute Code(s): W19.XXXA - UNSPECIFIED FALL, INITIAL ENCOUNTER SNOMED Code(s): 7607588 (3) Left displaced femoral neck fracture Current Visit: Yes Status: Acute Code(s): S72.002A - FRACTURE OF UNSP PART OF NECK OF LEFT FEMUR, INIT SNOMED Code(s): 9039692 Plan: 1. Continue pain control 2. Anticoagulation with Lovenox 3. Continue physical therapy and ambulation today 4. Anticipate discharge to skilled rehab when bed is available and cleared by internal medicine. She is orthopedically stable for discharge. <Dustin Martinez - Last Filed: 05/22/18 21:27> Objective - Vital Signs Vital signs: Vital Signs Temp 98.5 F 05/22/18 15:06 Pulse 93 05/22/18 15:06 Resp 18 05/22/18 15:06 BP 109/65 05/22/18 15:06 Pulse Ox 90 L 05/22/18 15:06 Intake & Output 05/22/18 05/22/18 05/23/18 06:59 18:59 06:59 Output Total 100 200 Balance -100 -200 Output: Urine 100 200 Other: Voiding Method Indwelling Catheter Indwelling Catheter # Voids 150 - Labs CBC & Chem 7: 05/22/18 12:03 05/20/18 09:54 Labs: Abnormal Lab Results - Last 24 Hours (Table) 05/22/18 Range/Units 12:03 RBC 3.30 L (3.80-5.40) m/uL Hgb 10.4 L (11.4-16.0) gm/dL Hct 32.2 L (34.0-46.0) % Lymphocytes # 0.7 L (1.0-4.8) k/uL Assessment and Plan (1) Left displaced femoral neck fracture Current Visit: Yes Status: Acute Code(s): S72.002A - FRACTURE OF UNSP PART OF NECK OF LEFT FEMUR, INIT SNOMED Code(s): 2654921 Plan: Reviewed and agree with above. Patient was also later seen and examined by me. S: Family at bedside. Pt states she's feeling better. Reports pain level is tolerable and improving. Worked with PT but unable to ambulate yet. PE: Patient reclined in bed, eating - much more alert and interactive Dressings clean and dry without shadowing. Mild/appropriate pain with PROM of LLE. Abduction pillow in place. A: POD #2 s/p left hip hemiarthoplasty. Generalized deconditioning P: Pain well controlled. Slow progress w/PT. Continue pain mgmt, PT and DVT prophylaxis. Maintain posterior hip precautions. Likely discharge to [facility] tomorrow. Dustin Martinez D.O.
[2018-05-22] MEDS: MULTIVITAMINS, THERA 1 EACH TAB PO SCH (11:38)
[2018-05-22] MEDS: HYDROcodone/APAP 5-325MG 1 EACH TAB PO PRN (12:07)
[2018-05-22 12:47] LABS: Basophils % (A) 0 %; Eosinophils # (A) 0.1 k/uL (0-0.7); Eosinophils % (A) 1 %; HCT 32.2 % (34.0-46.0); HGB 10.4 gm/dL (11.4-16.0); Hypochromasia Slight; Lymphocytes # (A) 0.7 k/uL (1.0-4.8); Lymphocytes % (A) 8 %; MCH 31.3 pg (25.0-35.0); MCHC 32.2 g/dL (31.0-37.0); MCV 97.4 fL (80.0-100.0); Mean Platelet Volume 7.6; Monocytes # (A) 0.8 k/uL (0-1.0); Monocytes % (A) 9 %; Neutrophils % (A) 80 %; Platelet Count 194 k/uL (150-450); RDW 13.2 % (11.5-15.5); WBC 8.8 k/uL (3.8-10.6)
--- NOTE | 2018-05-22 13:42 | P.PN ---
Subjective History of present illness, from records Patient is a 83-year-old female with a known history of hypertension, hyperlipidemia, hypothyroidism, previous history of smoking quit 4 weeks ago and also history of CVA/TIA in the past without residual weakness was brought to the hospital status post fall in the bathroom. Patient is that she slipped and fell in the bathroom. Denied any hitting her head. Patient was complaining of left hip pain since then and family brought her to the hospital. Denied any complains of chest pain. Denied any dizziness or lightheadedness. No nausea vomiting. No history of seizures in the past. Patient is ambulatory at home with a walker by herself without any support currently. She lives at home with her . X-ray of the left hip showed mildly impacted nondisplaced transcervical femoral neck fracture X-ray the pelvis showed suboptimal assessment due to external rotation of the hips obscuring most of the femoral neck regions. However findings are highly suspicious for a nondisplaced left transcervical femoral neck fracture. Underlying mild degenerative changes at both hips. CT head and cervical spine showed no acute intracranial abnormality seen. Similar mild to moderate atrophy. Secondary mild ex vacuo ventriculomegaly. Moderate confluent changes of chronic small was an ischemic changes with the world of bilateral basilar ganglia lacunar infarcts. No acute fracture or malalignment of the cervical spine. Moderate spondylitic changes. Subjective 05/21/2018 Patient was seen and examined by me at bedside, she is lying in bed not in distress. She open eyes spontaneously and to verbal stimuli eyes, she states that her pain is controlled. She denies chest pain or dyspnea. The patient looks a little bit drowsy. Patient looks afebrile. Leukocytosis has resolved from 12 down to 8.8 KG. Hemoglobin stable. BMP from yesterday was unremarkable with creatinine 0.5 05/22/2018 Patient is status post left hip arthroplasty. Today is post op day #2. Patient is more awake and alert today she is oriented to time place and person, she knows in the hospital in [place]. She knows this April 2018 and she knows why in the hospital. She denies chest pain or dyspnea. No abdominal complaint leg pain. No nausea vomiting. Patient tolerating diet well. Her labs reviewed , no leukocytosis. Urinalysis was negative for infection. And chest x-ray showing COPD with chronic changes. Medically she is cleared for discharge however we recommend patient follow up with her PCP within one week. Patient supposed to go to [facility] upon discharge for rehab Objective - Vital Signs Vital signs: Vital Signs Temp 98.2 F 05/22/18 07:45 Pulse 87 05/22/18 07:45 Resp 18 05/22/18 07:45 BP 125/75 05/22/18 07:45 Pulse Ox 94 L 05/22/18 07:45 Intake & Output 05/21/18 05/22/18 05/22/18 18:59 06:59 18:59 Output Total 200 100 Balance -200 -100 Output: Urine 200 100 Other: Voiding Method Indwelling Catheter Indwelling Catheter Indwelling Catheter # Voids 150 - Exam -GENERAL: The patient is alert and oriented however she exhibited drowsy., not in any acute distress. HEENT: Pupils are round and equally reacting to light. EOMI. No scleral icterus. No conjunctival pallor. Normocephalic, atraumatic. No pharyngeal erythema. No thyromegaly. CARDIOVASCULAR: S1 and S2 present. No murmurs, rubs, or gallops. PULMONARY: Chest is clear to auscultation, no wheezing or crackles. ABDOMEN: Soft, nontender, nondistended, normoactive bowel sounds. No palpable organomegaly. MUSCULOSKELETAL: No joint swelling or deformity. -EXTREMITIES: No cyanosis, clubbing, or pedal edema. Left hip wound is clean and closed NEUROLOGICAL: Gross neurological examination did not reveal any focal deficits. SKIN: No rashes. - Labs CBC & Chem 7: 05/22/18 12:03 05/20/18 09:54 Labs: Abnormal Lab Results - Last 24 Hours (Table) 05/21/18 05/22/18 Range/Units 12:00 12:03 RBC 3.30 L (3.80-5.40) m/uL Hgb 10.4 L (11.4-16.0) gm/dL Hct 32.2 L (34.0-46.0) % Lymphocytes # 0.7 L (1.0-4.8) k/uL Urine Ketones 4+ H (Negative) Assessment and Plan Assessment: Status post mechanical fall and left femoral neck fracture status post Left hip hemiarthroplasty Drowsiness, rule out infection versus others Hypertension fairly controlled. Hyperlipidemia History of lacunar CVA with mild dysarthria Hypothyroidism History of smoking quit 4 weeks ago History of pneumonia and bronchitis December 2017 Previous history of falls History of compression fractures to L1 and L3 in 2013 DVT prophylaxis Plan: Patient will be continued on IV hydration and pain management. Patient currently denied any complaints of chest pain or shortness of breath. Patient does have COPD changes from chronic smoking but patient is able to ambulate at home without shortness of breath. Patient does have a history of CVA with lacunar infarcts. Renal function is stable. Currently denied any other complaints. Patient was noticed limits drowsy, not sure if this is close to her baseline. However we'll do some workup to rule out infection. Labs from today showing improvement. We'll continue to follow patient with you Further recommendations based on the clinical course. DVT prophylaxis and pain management as per primary surgical team. Patient currently on Lovenox. Physical therapy evaluation: Pending Prognosis is guarded Thank you for consulting us, these feel free to contact us for any further question or clarification
[2018-05-22] MEDS: SODIUM CHLORIDE 0.9% 1,000 ML IV SCH (17:30)
[2018-05-22] MEDS: SENNOSIDES-DOCUSATE SODIUM 1 EACH TAB PO SCH (22:12)
[2018-05-22] MEDS: ATORVASTATIN 20 MG TAB PO SCH (22:12)
[2018-05-23 00:34] VITALS: RESP 20
[2018-05-23 07:10] VITALS: BP 145/74; PULSE 79; TEMP 98.2
[2018-05-23] MEDS: ATORVASTATIN 20 MG TAB PO SCH (07:33)
[2018-05-23] MEDS: SENNOSIDES-DOCUSATE SODIUM 1 EACH TAB PO SCH (07:33)
[2018-05-23] MEDS: LISINOPRIL 10 MG TAB PO SCH (08:24)
[2018-05-23] MEDS: ENOXAPARIN 40 MG/0.4 ML SYRINGE SQ SCH (08:24)
[2018-05-23] MEDS: LEVOTHYROXINE 50 MCG TAB PO SCH (08:24)
[2018-05-23] MEDS: HYDROcodone/APAP 5-325MG 1 EACH TAB PO PRN (08:25)
--- NOTE | 2018-05-23 09:29 | P.DS ---
Providers Date of admission: 05/19/18 19:45 Expected date of discharge: 05/23/18 Attending physician: Dustin Martinez DO Consults: 05/20/18 01:09 Consult Physician Routine Consulting Provider: Glenn Patricia Consult Reason/Comments: medical management Do you want consulting provider notified?: Already Contacted Primary care physician: Stated None - Discharge Diagnosis(es) (1) Left displaced femoral neck fracture Current Visit: Yes Status: Acute (2) Status post hip hemiarthroplasty Current Visit: Yes Status: Acute (3) Altered mental status Current Visit: No Status: Acute Hospital Course: This is a 83 year old female who presented to the hospital after a fall at home which resulted in a left femoral neck fracture. The patient was cleared by medicine for surgery. The patient underwent a left hip hemiarthroplasty on by Dr. Martinez. The procedure was performed without complication or sequelae. The patient is doing well postoperatively. She has been experiencing fluctations in her mental status & level of alertness. Family reports she "has her good days and bad days" but had been having more days of confusion prior to admission. Labs and vital signs are stable on the day of discharge and pain is well controlled on oral medication. On the day of discharge, the patient's incision is healing well. There is minimal erythema. There is no drainage noted at this time. There is minimal soft tissue swelling to the hip and thigh. The patient has full foot and ankle motion without difficulty or pain. The calf is soft and nontender. Neurovascular status to the left lower extremity is intact. The patient is discharged to skilled rehab in stable condition. Pertinent Studies: Laboratory Tests 05/22/18 12:03 WBC 8.8 Hgb 10.4 L Hct 32.2 L Plt Count 194 Patient Condition at Discharge: Stable Plan - Discharge Summary New Discharge Prescriptions: New HYDROcodone/APAP 5-325MG [[place] 5] 1 - 2 each PO Q4-6H PRN #60 tab PRN Reason: Pain Aspirin 325 mg PO BID #60 tab Enoxaparin [Lovenox] 40 mg SQ DAILY #14 syringe Sennosides-Docusate Sodium [Senokot-S] 2 tab PO DAILY #30 tablet No Action Atorvastatin [Lipitor] 20 mg PO HS tab Levothyroxine Sodium [Synthroid] 50 mcg PO DAILY@0630 tab Lisinopril [Zestril] 10 mg PO DAILY Discharge Medication List Atorvastatin [Lipitor] 20 mg PO HS tab 01/16/18 [Rx] Levothyroxine Sodium [Synthroid] 50 mcg PO DAILY@0630 tab 01/16/18 [Rx] Lisinopril [Zestril] 10 mg PO DAILY 03/30/18 [History] Aspirin 325 mg PO BID #60 tab 05/22/18 [Rx] Enoxaparin [Lovenox] 40 mg SQ DAILY #14 syringe 05/22/18 [Rx] HYDROcodone/APAP 5-325MG [[place] 5] 1 - 2 each PO Q4-6H PRN #60 tab 05/22/18 [Rx] Sennosides-Docusate Sodium [Senokot-S] 2 tab PO DAILY #30 tablet 05/22/18 [Rx] Follow up Appointment(s)/Referral(s): Dustin Martinez, [Medical Doctor] - 2 Weeks None,Stated [Primary Care Provider] - 1 Week Patient Instructions/Handouts: Hip Abduction Pillow (DC) Activity/Diet/Wound Care/Special Instructions: Weightbearing as tolerated with a walker. Maintain posterior hip precautions. Lovenox 10 days then Aspirin 325mg twice daily for 4 weeks. Dressing may be removed in 7 days. May shower with dressing on as long as good seal is maintained. Otherwise, remove and replace with dry dressing. Follow up with Dr. Dustin Martinez in 2 weeks. Call [facility] with questions or concerns Discharge Disposition: TRANSFER TO SNF/ECF
--- NOTE | 2018-05-23 09:43 | P.PN ---
Subjective Progress Note Date: 05/23/18 Patient is sitting up eating breakfast in bed. She is denies any new issues or concerns. She answers appropriately but is a very flat affect and is minimally interactive when not asked direct questions. She was initially unsure of where she was put with prompting remembered she was in a hospital and had surgery on her left hip. Objective - Vital Signs Vital signs: Vital Signs Temp 98.2 F 05/23/18 06:15 Pulse 79 05/23/18 06:15 Resp 20 05/23/18 06:15 BP 145/74 05/23/18 06:15 Pulse Ox 95 05/23/18 06:15 Intake & Output 05/22/18 05/23/18 05/23/18 18:59 06:59 18:59 Intake Total 300 Output Total 200 400 Balance -200 -100 Intake: Oral 300 Output: Urine 200 400 Uretheral (Nicholson) 200 Other: Voiding Method Indwelling Catheter Indwelling Catheter - Exam Dressings changed - incision is intact with no erythema or drainage. There is appropriate edema in the surrounding subcutaneous tissues. No fluctuance or palpable subcutaneous fluid collection. Intact gross motor and sensation distally.Abduction pillow in place. - Labs CBC & Chem 7: 05/22/18 12:03 05/20/18 09:54 Labs: Abnormal Lab Results - Last 24 Hours (Table) 05/22/18 Range/Units 12:03 RBC 3.30 L (3.80-5.40) m/uL Hgb 10.4 L (11.4-16.0) gm/dL Hct 32.2 L (34.0-46.0) % Lymphocytes # 0.7 L (1.0-4.8) k/uL Assessment and Plan Assessment: POD #3 s/p left hip hemiarthoplasty. Postop anemia - stable Altered mental status - multifactorial with several likely etiologies (postop delerium, +/- effects of opioids with underlying dementia) Generalized deconditioning (1) Left displaced femoral neck fracture Current Visit: Yes Status: Acute Code(s): S72.002A - FRACTURE OF UNSP PART OF NECK OF LEFT FEMUR, INIT SNOMED Code(s): 3950051 (2) Status post hip hemiarthroplasty Current Visit: Yes Status: Acute Code(s): Z96.649 - PRESENCE OF UNSPECIFIED ARTIFICIAL HIP JOINT SNOMED Code(s): 143809910 (3) Altered mental status Current Visit: No Status: Acute Code(s): R41.82 - ALTERED MENTAL STATUS, UNSPECIFIED SNOMED Code(s): 872832561 (4) Postoperative anemia Current Visit: Yes Status: Acute Code(s): D64.9 - ANEMIA, UNSPECIFIED SNOMED Code(s): 760430362 Plan: Very slow progress w/PT - likely due to normal postop weakness combined with poor preop functional status. Continue pain mgmt, PT and DVT prophylaxis. Maintain posterior hip precautions. Plan for discharge to skilled rehab when ok with internal medicine. Time with Patient: Less than 30
[2018-05-23] MEDS: SODIUM CHLORIDE 0.9% 1,000 ML IV SCH (12:49)
[2018-05-23] MEDS: MULTIVITAMINS, THERA 1 EACH TAB PO SCH (12:55)
--- NOTE | 2018-05-23 15:34 | P.PN ---
Subjective History of present illness, from records Patient is a 83-year-old female with a known history of hypertension, hyperlipidemia, hypothyroidism, previous history of smoking quit 4 weeks ago and also history of CVA/TIA in the past without residual weakness was brought to the hospital status post fall in the bathroom. Patient is that she slipped and fell in the bathroom. Denied any hitting her head. Patient was complaining of left hip pain since then and family brought her to the hospital. Denied any complains of chest pain. Denied any dizziness or lightheadedness. No nausea vomiting. No history of seizures in the past. Patient is ambulatory at home with a walker by herself without any support currently. She lives at home with her . X-ray of the left hip showed mildly impacted nondisplaced transcervical femoral neck fracture X-ray the pelvis showed suboptimal assessment due to external rotation of the hips obscuring most of the femoral neck regions. However findings are highly suspicious for a nondisplaced left transcervical femoral neck fracture. Underlying mild degenerative changes at both hips. CT head and cervical spine showed no acute intracranial abnormality seen. Similar mild to moderate atrophy. Secondary mild ex vacuo ventriculomegaly. Moderate confluent changes of chronic small was an ischemic changes with the world of bilateral basilar ganglia lacunar infarcts. No acute fracture or malalignment of the cervical spine. Moderate spondylitic changes. Subjective 05/21/2018 Patient was seen and examined by me at bedside, she is lying in bed not in distress. She open eyes spontaneously and to verbal stimuli eyes, she states that her pain is controlled. She denies chest pain or dyspnea. The patient looks a little bit drowsy. Patient looks afebrile. Leukocytosis has resolved from 12 down to 8.8 KG. Hemoglobin stable. BMP from yesterday was unremarkable with creatinine 0.5 05/22/2018 Patient is status post left hip arthroplasty. Today is post op day #2. Patient is more awake and alert today she is oriented to time place and person, she knows in the hospital in [place]. She knows this April 2018 and she knows why in the hospital. She denies chest pain or dyspnea. No abdominal complaint leg pain. No nausea vomiting. Patient tolerating diet well. Her labs reviewed , no leukocytosis. Urinalysis was negative for infection. And chest x-ray showing COPD with chronic changes. Medically she is cleared for discharge however we recommend patient follow up with her PCP within one week. Patient supposed to go to [facility] upon discharge for rehab 05/23/2018 Patient is status post left hip arthroplasty. Today is post op day #3. Patient is more awake and alert today she is oriented to place and person, she knows in the hospital in [place]. She knows this April 2018 and she knows why in the hospital , for hip fracture . She denies chest pain or dyspnea. No abdominal complaint leg pain. No nausea vomiting. Patient tolerating diet well. Her labs reviewed, no leukocytosis. Urinalysis was negative for infection. And chest x-ray showing COPD with chronic changes. Medically she is stable for discharge however we recommend patient follow up with her PCP within one week. Patient supposed to go to [facility] for rehab today Objective - Vital Signs Vital signs: Vital Signs Temp 98.2 F 05/23/18 06:15 Pulse 79 05/23/18 06:15 Resp 20 05/23/18 06:15 BP 145/74 05/23/18 06:15 Pulse Ox 95 05/23/18 06:15 Intake & Output 05/22/18 05/23/18 05/23/18 18:59 06:59 18:59 Intake Total 300 Output Total 200 400 Balance -200 -100 Intake: Oral 300 Output: Urine 200 400 Uretheral (Nicholson) 200 Other: Voiding Method Indwelling Catheter Indwelling Catheter Indwelling Catheter - Exam -GENERAL: The patient is alert and oriented however she exhibited drowsy., not in any acute distress. HEENT: Pupils are round and equally reacting to light. EOMI. No scleral icterus. No conjunctival pallor. Normocephalic, atraumatic. No pharyngeal erythema. No thyromegaly. CARDIOVASCULAR: S1 and S2 present. No murmurs, rubs, or gallops. PULMONARY: Chest is clear to auscultation, no wheezing or crackles. ABDOMEN: Soft, nontender, nondistended, normoactive bowel sounds. No palpable organomegaly. MUSCULOSKELETAL: No joint swelling or deformity. -EXTREMITIES: No cyanosis, clubbing, or pedal edema. Left hip wound is clean and closed NEUROLOGICAL: Gross neurological examination did not reveal any focal deficits. SKIN: No rashes. - Labs CBC & Chem 7: 05/22/18 12:05/20/18 09:54 Assessment and Plan Assessment: Status post mechanical fall and left femoral neck fracture status post Left hip hemiarthroplasty Drowsiness, rule out infection versus others Hypertension fairly controlled. Hyperlipidemia History of lacunar CVA with mild dysarthria Hypothyroidism History of smoking quit 4 weeks ago History of pneumonia and bronchitis December 2017 Previous history of falls History of compression fractures to L1 and L3 in 2013 DVT prophylaxis Plan: Patient will be continued on IV hydration and pain management. Patient currently denied any complaints of chest pain or shortness of breath. Patient does have COPD changes from chronic smoking but patient is able to ambulate at home without shortness of breath. Patient does have a history of CVA with lacunar infarcts. Renal function is stable. Currently denied any other complaints. Patient was noticed limits drowsy, not sure if this is close to her baseline. However we'll do some workup to rule out infection. Labs from today showing improvement. We'll continue to follow patient with you Further recommendations based on the clinical course. DVT prophylaxis and pain management as per primary surgical team. Patient currently on Lovenox. Physical therapy evaluation: Pending Prognosis is guarded Thank you for consulting us, these feel free to contact us for any further question or clarification
== END 2018-05-23 16:55 | DRG 470 ==
LOC: EC 12:51 → 4MS4W 19:45
PROVIDERS: ADMIT Orthopaedic Surgery; ATTEND Orthopaedic Surgery
PROC: 0SRS0J9 Replacement of Left Hip Joint, Femoral Surface with Synthetic Substitute, Cemented, Open Approach (ICD-10-PCS; principal; 2018-05-20 12:30)
DX: S72.012A Unspecified intracapsular fracture of left femur, initial encounter for closed fracture (principal); W01.0XXA Fall on same level from slipping, tripping and stumbling without subsequent striking against object, initial encounter; I10 Essential (primary) hypertension; E03.9 Hypothyroidism, unspecified; E78.5 Hyperlipidemia, unspecified; F03.90 Unspecified dementia, unspecified severity, without behavioral disturbance, psychotic disturbance, mood disturbance, and anxiety; J44.9 Chronic obstructive pulmonary disease, unspecified; Y92.002 Bathroom of unspecified non-institutional (private) residence as the place of occurrence of the external cause; Z91.81 History of falling; Z79.890 Hormone replacement therapy; Z79.899 Other long term (current) drug therapy; Z88.0 Allergy status to penicillin; Z87.891 Personal history of nicotine dependence; I69.322 Dysarthria following cerebral infarction; Z87.01 Personal history of pneumonia (recurrent); D64.9 Anemia, unspecified
CPT/HCPCS: 70450; 71045; 72125; 72170; 73501; 80048; 80053; 81001; 83735; 85025; 86850; 86900; 86901; 88305; 88311